=== PATIENT | male | born 1975 | race African-American/Black ===

== ENCOUNTER 2020-08-10 07:52 | Inpatient (IN) | payer OTHER ==
--- NOTE | 2020-08-10 08:13 | Emergency Department Report ---
ED General Adult HPI - General Chief complaint: Weakness Stated complaint: VOMITING/ABD PAIN PUI?: Yes Time Seen by Provider: 08/10/20 08:09 Source: patient, family, EMS ( EMS documentation not available at time of chart dictation ), RN notes reviewed Mode of arrival: Stretcher Limitations: Language Barrier, Physical Limitation - History of Present Illness Initial comments: The patient was evaluated in the emergency department for symptoms described in the history of present illness. He/she was evaluated in the context of the global COVID-19 pandemic, which necessitated consideration that the patient might be at risk for infection with the virus that causes COVID-19. Institutional protocols and algorithms that pertain to the evaluation of patients at risk for COVID-19 are in a state of rapid change based on informati on released by regulatory bodies including the CDC and federal and state organizations. These policies and algorithms were followed during the patient's care in the emergency department. Please note that these policies, procedures and recommendations changed on a rapid basis. The patient is a 45-year-old gentleman. He is not known to myself previously. He is accompanied by his niece. He indicates that he would like to have the niece translate for him, and this physician is conversant in British. As per his niece, the patient is a history of recreational drug use, with "ice", and a distant history of gallbladder stones. He may have had a cholecystectomy, they are not sure. He is brought to the hospital today with a complaint of weakness, nausea, vomiting, abdominal pain and distention. No fevers that they are aware of. Abdominal pain is all over. Reports having had received Covid vaccination. Denies urinary symptoms and testicular pain. Indicates pain is all over, increases with palpation and decreases with rest. Positive dry cough. Patient has apparently received his COVID-19 vaccination. -: Gradual, days(s) Location: abdomen Quality: aching Consistency: constant Improves with: rest Worsens with: movement - Related Data Allergies Allergy/AdvReac Type Severity Reaction Status Date / Time No Known Allergies Allergy Unverified 08/10/20 08:25 ED Review of Systems ROS: Stated complaint: VOMITING/ABD PAIN Other details as noted in HPI Constitutional: malaise, weakness Eyes: denies: vision change ENT: denies: epistaxis Respiratory: cough, shortness of breath Cardiovascular: denies: chest pain Gastrointestinal: abdominal pain, nausea, vomiting Musculoskeletal: arthralgia, myalgia Neurological: weakness Psychiatric: anxiety ED Physical Exam - General Limitations: Physical Limitation General appearance: anxious, in distress - Head Head exam: Present: atraumatic, normocephalic - Eye Eye exam: Present: normal appearance, EOMI - ENT ENT exam: Present: normal exam, normal orophraynx, mucous membranes moist, normal external ear exam - Neck Neck exam: Present: normal inspection, full ROM. Absent: tenderness, meningismus - Respiratory Respiratory exam: Present: other (Pulmonary auscultation not performed secondary to lack of disposable stethoscope). Absent: stridor - Cardiovascular Cardiovascular Exam: Present: tachycardia (Tachycardic rate noted on library monitor), other (Cardiac auscultation not performed secondary to lack of disposable stethoscope) - GI/Abdominal GI/Abdominal exam: Present: distended, tenderness, guarding (Voluntary guarding). Absent: pulsatile mass - Rectal Rectal exam: Present: deferred - Extremities Exam Extremities exam: Present: normal inspection, full ROM, other (2+ pulses noted in the bilateral upper and lower extremities. There is no palpable cord. negative Homans sign. Muscular compartments are soft. The pelvis is stable.). Absent: pedal edema, calf tenderness - Back Exam Back exam: Present: normal inspection. Absent: tenderness, CVA tenderness (R), CVA tenderness (L), paraspinal tenderness, vertebral tenderness - Neurological Exam Neurological exam: Present: alert, other (No facial droop. Tongue midline. Extraocular movements intact bilaterally. Facial sensation intact to light touch in V1, V2, V3 distribution bilaterally. 5 and a 5 strength in 4 extremities. Sensation intact to light touch in 4 extremities.) - Psychiatric Psychiatric exam: Present: anxious - Skin Skin exam: Present: warm, dry, intact, normal color. Absent: rash ED Course Vital Signs 08/10/20 08/10/20 08/10/20 07:53 08:21 10:37 Temperature 97.8 F Pulse Rate 107 H 135 H 103 H Respiratory 20 28 H 18 Rate Blood Pressure 90/57 Blood Pressure 110/63 98/64 [Left] O2 Sat by Pulse 96 94 96 Oximetry - Reevaluation(s) Reevaluation #1: 08/10/20 08:28 Differential diagnosis, including but not limited to: Obstruction, colitis, diverticulitis, GERD, gastritis, hiatal hernia, Sakshi-Davis tear, upper GI bleed, perforated viscus, pneumonia, pneumonitis, COVID-19 Assessment and plan: 45-year-old gentleman, with a primary complaint of abdomin al pain, nausea, vomiting, questionable coffee-ground emesis, who is hypotensive, tachycardic and hypoxic. 2 large-bore IVs established. Start IV fluids aggressively, code sepsis called overhead. Initiate isolation precautions, supplemental oxygen, pain medication, nausea medication, broad-spectrum antibiotic, empiric steroids, obtain x-ray the chest, CT angiogram chest, CT scan abdomen pelvis. Reassess after initial data points. Anticipate admission for supportive care and aggressive management once initial diagnostics have resulted. Nursing team informed me that patient filled up a bag with coffee-ground emesis. Suspect the coffee-ground emesis is secondary to intrinsic abdominal process. We will start him on Protonix, contact gastroenterology on-call to follow along with in consultation. 08/10/20 10:39 Laboratory studies reviewed and appreciated. Hemoconcentration, leukocytosis, bandemia, renal insufficiency, lactic acidosis and metabolic acidosis all present. Lipase within normal limits. There is no external physical exam evidence of blunt or penetrating trauma. Noncontrast CT scan of the abdomen pelvis demonstrates perforated viscus. Please note that I received a verbal report from the radiologist, because at this point in time, secondary to technical issues, written and typed radiology reports are not able to be shared or transmitted to myself. The radiologist informed me that he would follow-up with a chest interpretation, wet read, if any significant findings noted. GI recommendations reviewed and appreciated. 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 No further vomiting. Blood pressure 110 systolic. Contacted our general surgeon on-call, Dr. Reynolds, I discussed the patient's history, physical, pertinent laboratory studies and imaging studies, and have requested emergent general surgical consultation, for probable emergent operative intervention. Have also placed emergency consults and request for critical care consultation. Hospital physician, Dr. Hernandez, to admit patient to the medical service. D-dimer likely elevated secondary to the aforementioned. No further hypoxia at this time. Patient too unstable to go to nuclear medicine scan at this time, even if he did have a pulmonary embolism, given history of perforated viscus, and acute surgically emergent condition, systemic anticoagulation is contraindicated at this time. 08/10/20 11:02 - Consultations Consultation #1: 08/10/20 08:47 Discussed history, physical, pertinent vital signs and overall clinical impression with gastroenterology on-call, Dr. Hollingsworth. His group will follow in consultation, and he is in agreement with the plan of care. Consultation #2: 08/10/20 11:41 Discussed history, physical, pertinent laboratory studies and imaging studies and plan of care with critical care physician, Dr. Haro Agrees with plan of care, and he will evaluate the patient postoperatively. ED Medical Decision Making - Lab Data Result diagrams: 08/10/20 08:56 08/10/20 08:56 Vital Signs 08/10/20 08:21 Temperature 97.8 F Pulse Rate 135 H Respiratory 28 H Rate Blood Pressure 90/57 O2 Sat by Pulse 94 Oximetry - EKG Data -: EKG Interpreted by Me EKG shows normal: sinus rhythm Rate: tachycardia - EKG Data When compared to previous EKG there are: previous EKG unavailable 08/10/20 08:56 EKG interpreted at 08: 5 6 AM Sinus rhythm, tachycardia, normal P wave axis. Intervals within normal limits. This is an abnormal EKG secondary to tachycardia. The EKG is not a STEMI, there is no prior for comparison. - Radiology Data Radiology results: pending, report reviewed, image reviewed interpreted by me: 1 portable view x-ray the chest shows no pneumothorax, no infiltrate, no signifi cant abnormality. CHEST 1 VIEW INDICATION: Hypoxia, nausea and vomiting COMPARISON: None FINDINGS: Support devices: None Heart: Normal Lungs/Pleura: No acute pulmonary or pleural findings. IMPRESSION: 1. No acute disease. Signer Name: Atilio Leonardo MD Signed: 08/10/2020 7:59 AM Workstation Name: [id number] [facility] [address] [place] [address] Cat Scan Report Signed Patient: CHINTAN EVERETT MR#: [id number] : 1975 Acct:[id number] Age/Sex: 45 / M ADM Date: 08/10/20 Loc: CC1 A258-[address]: KENROY HERNANDEZ MD Ordering Physician: PENG PONCE MD Date of Service: 08/10/20 Procedure(s): CT chest wo con Accession Number(s): [id number] cc: PENG PONCE MD CT CHEST, ABDOMEN, AND PELVIS WITHOUT CONTRAST INDICATION: Chest and abdominal pain, nausea with vomiting. Onset of symptoms on Thursday. TECHNIQUE: Axial CT images were obtained through the chest, abdomen, and pelvis without contrast. All CT scans at this location are performed using CT dose reduction for ALARA by means of automated exposure control. COMPARISON: None available. FINDINGS: HEART: No significant abnormality. THORACIC AORTA AND ARTERIES: No significant abnormality. MEDIASTINUM and JANE: No mass or lymphadenopathy. The esophagus is fluid-filled and moderately distended. The trachea and main bronchi are patent and normal in caliber. LUNGS: There is mild dependent bilateral atelectasis without other significant abnormalities. PLEURA: No significant pleural effusion. No pneumothorax. LIVER: No significant abnormality. GALLBLADDER: Prior cholecystectomy. BILE DUCTS: No significant abnormality. PANCREAS: No significant abnormality. SPLEEN: No significant abnormality. ADRENALS: No significant abnormality. RIGHT KIDNEY and URETER: No significant abnormality. LEFT KIDNEY and URETER: No significant abnormality. STOMACH and SMALL BOWEL: The stomach is fluid-filled and markedly distended. There is moderate generalized small bowel dilatation with mild thickening of multiple small bowel loops as well as mild to moderate surrounding inflammation. There is a questionable abscess versus conglomerate loops of small bowel seen along the pelvis posterior to the bladder on image 263 of series 2 measuring approximately 6.4 x 5.0 cm. No other significant abnormality. COLON: No significant abnormality. APPENDIX: No significant abnormality. PERITONEUM: Trace free fluid is seen along the liver and spleen. A moderate amount of free air is present, mainly along the upper abdomen. Questional abscess in the pelvis as described above. No other organized fluid collection is seen. LYMPH NODES: No significant adenopathy. ABDOMINAL AORTA and ARTERIES: No significant abnormality. IVC and VEINS: No significant abnormality. URINARY BLADDER: No significant abnormality. REPRODUCTIVE ORGANS: No significant abnormality. ADDITIONAL FINDINGS: None. BONES: No significant abnormality. IMPRESSION: 1. CT evidence of gastroenteritis complicated by bowel perforation with a pelvic abscess versus conglomerate loops of small bowel as described above. 2. Additional findings as above. CRITICAL RESULT: Time of Discovery (LIEUTENANT FIREFIGHTER/CDT): 9:25 Time of Communication (LIEUTENANT FIREFIGHTER/CDT): 9:30 Licensed Practitioner Receiving Report: Dr. Ponce Read-Back Performed: Yes. Signer Name: Jero Story MD Signed: 08/10/2020 2:23 PM Workstation Name: [id number] Transcribed By: ROSANNA Dictated By: Jero Story MD Electronically Authenticated By: Jero Story MD Signed Date/Time: 08/10/20 7450 Critical Care Time: Yes Critical care time in (mins) excluding proc time.: 65 Critical care attestation.: If time is entered above; I have spent that time in minutes in the direct care of this critically ill patient, excluding procedure time. Critical Care Time: Critical care time includes multiple bedside reevaluations, interpretation of laboratory studies, radiology studies, multiple bedside reevaluations, time spent obtaining history and physical, and discussion with multiple consulting services, including hospital medicine, gastroenterology, general surgery, and critical care. This does not include procedure time. This patient has evidence of multiorgan dysfunction, manifest by sepsis, bandemia, renal insufficiency, metabolic acidosis, and lactic acidosis. ED Disposition Clinical Impression: Coffee ground emesis, Sepsis, Acute abdominal pain, Hypoxia, Suspected 2019 novel coronavirus infection, Renal insufficiency, Lactic acidosis, Metabolic acidosis, Perforated viscus Disposition: OP ADMIT IP TO THIS HOSP Is pt being admited?: Yes Does the pt Need Aspirin: No Condition: Critical
[2020-08-10] MEDS ORDERED: LACTATED RINGERS 1000 ML IV SOLN IV ONE (08:21)
[2020-08-10] MEDS ORDERED: dexAMETHasone 4 MG/ML VIAL IV NR (08:30)
[2020-08-10] MEDS ORDERED: ONDANSETRON 4 MG/2 ML INJ IV NR (08:30)
[2020-08-10] MEDS ORDERED: MORPHINE 4 MG/1 ML INJ IV NR (08:30)
[2020-08-10] MEDS ORDERED: PIPERACIL/TAZOBACTA 4.5/NS 100 4.5 GM/100 ML VIAL IV ONE (08:30)
[2020-08-10] MEDS: PANTOPRAZOLE 80 MG in SODIUM CHLORIDE 0.9% 100 ML IV SCH ×2 (09:02→20:05)
--- NOTE | 2020-08-10 09:03 | XRay Report ---
CHEST 1 VIEW INDICATION: Hypoxia, nausea and vomiting COMPARISON: None FINDINGS: Support devices: None Heart: Normal Lungs/Pleura: No acute pulmonary or pleural findings. IMPRESSION: 1. No acute disease. Signer Name: Atilio Leonardo MD Signed: 08/10/2020 8:59 AM Workstation Name: [id number]
[2020-08-10 09:30] LABS: Hematocrit 47.5 % (35.5-45.6); Mean Corpuscular HGB Conc 34 % (32-34); Mean Corpuscular Volume 89 fl (84-94); Platelet Count 209 K/mm3 (140-440); Red Blood Count 5.31 M/mm3 (3.65-5.03)
[2020-08-10 09:44] LABS: Alanine Aminotransferase 11 units/L (7-56); Albumin 3.3 g/dL (3.9-5); BUN/Creatinine Ratio 18; Blood Urea Nitrogen 56 mg/dL (9-20); Calcium 8.6 mg/dL (8.4-10.2); Hemolysis Index 4
--- NOTE | 2020-08-10 09:48 | Gastroenterology Consultation ---
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 He reports since then having upper abdominal pain that has been getting more severe sharp cramping intermittent He reports that he just threw up moderate amount of dark red blood and that since throwing up his stomach is started feel little bit better though at times he is wincing throughout her interview and stopping to talk from abdominal pain Patient reports never having had abdominal pain like this before Patient reports that he did have ulcers many years ago though when I asked further about it he said he had surgery for gallstones He reports he does not smoke and just drinks a couple beers a week he used to drink about 10 beers a week in the past Niece reported that he uses drugs Reports no bowel movements no melena Denies fevers, reports nausea is improved currently since his recent vomiting Denies using [id number] pain medications Denies home medications Obtained/updated/reviewed patient's current medications Past History Past Medical History: No medical history Past Surgical History: Other (Patient reports gallbladder surgery for gallstones) Social history: other (Denies tobacco reports occasional alcohol use) Medications and Allergies Allergies Allergy/AdvReac Type Severity Reaction Status Date / Time No Known Allergies Allergy Unverified 08/10/20 08:25 Active Meds: Active Medications Pantoprazole Sodium 80 mg/ (Sodium Chloride) 100 mls @ 10 mls/hr IV DIRECT DARYA Last Admin: 08/10/20 09:02 Dose: 8 mg/hr, 10 mls/hr Documented by: Review of Systems - Review of Systems All systems: negative (10 Systems reviewed and negative except as mentioned above in the history of present illness) Exam - Constitutional Vital Signs: Temp Pulse Resp BP Pulse Ox 97.8 F 135 H 28 H 90/57 94 08/10/20 08:21 08/10/20 08:21 08/10/20 08:21 08/10/20 08:21 08/10/20 08:21 General appearance: other (Dried dark vomitus over his left chest and arm no acute distress) - EENT Eyes: EOM intact - Neck Neck: supple - Respiratory Respiratory effort: normal - Cardiovascular Rhythm: other (Mildly tachycardic) - Gastrointestinal General gastrointestinal: Present: tender, other - Integumentary Integumentary: Present: dry (Bowel sounds present but decreased frequency) - Neurologic Neurological: alert and oriented x3 - Psychiatric Psychiatric: other (Lethargic, but patient just got morphine) - Labs CBC & Chem 7: 08/10/20 08:56 Lab Results: Laboratory Results - last 24 hr 08/10/20 08/10/20 08/10/20 08:56 08:56 08:56 WBC 17.8 H RBC 5.31 H Hgb 16.0 H Hct 47.5 H MCV 89 MCH 30 MCHC 34 RDW 15.0 Plt Count 209 Lactic Acid 4.20 H* Plasma/Serum Alcohol < 0.01 Assessment and Plan Recommend n.p.o. status follow-up imaging and PPI Check lipase rule out traumatic pancreatitis Discussion: CT scan pending Patient hemoconcentrated Differential diagnosis includes traumatic pancreatitis, gastritis, peptic ulcer disease, bowel obstruction, etc. Work-up still in process of being performed follow-up imaging results and remainder of labs trend hemoglobin trend clinically given patient without melena and only had one episode of coffee- ground emesis will require further imaging information before can determine if patient requires endoscopy or not, though as of right now he does not appear to be having active upper GI bleed which requires endoscopic intervention therefore we will continue to monitor and will not scope at this juncture - Patient Problems (1) Acute abdominal pain Status: Acute (2) Coffee ground emesis Status: Acute
[2020-08-10 10:05] LABS: Total Cells Counted 100
[2020-08-10 10:06] LABS: Band Neutrophils # (Manual) 2.5 K/mm3; Platelet Estimate Consistent w Auto; RBC Morphology Normal
--- NOTE | 2020-08-10 10:55 | History and Physical Report ---
History of Present Illness Chief complaint: My stomach hurts History of present illness: 45 YO Male with no PMH presents to ED for evaluation. Pt reports" my stomach hurts". Patient reports that he has experienced abdominal pain over the past 2 days with persistent symptoms over the same timeframe. Patient knowledges nausea, multiple episodes of vomiting, as well as abdominal distention. Patient reports pain is 6/10, constant, aching in nature, worsened with movement, relieved with rest, diffuse in location. EMS was notified and upon arrival the patient was found to be in distress and subsequently transported to [facility] for further care and evaluation of the aforementioned symptoms. The patient was seen and evaluated in the emergency department. All lab and imaging studies reviewed. Patient underwent CT scan of the abdomen and pelvis and was found to have perforated viscus, complicated by sepsis, acidosis, as well as peritonitis. Patient admitted to ICU and initiated on sepsis protocol and treated with IV antibiotic therapy, bowel rest and supportive care. Surgical team consulted in ED. Patient is being taken urgently to the operating room for surgical intervention. Patient has fever, chills, chest pain, palpitation, skin rash, recent ill contact, ingestion of food/water from new or different sources, or known exposure to COVID-19. No prior admission for review. No medication listed at time of admission reconciliation. Past History Past Medical History: No medical history Past Surgical History: Other (Patient reports gallbladder surgery for gallstones) Social history: single, other (Denies tobacco reports occasional alcohol use). denies: smoking, alcohol abuse, prescription drug abuse Family history: no significant family history, other (Reviewed) Medications and Allergies Allergies Allergy/AdvReac Type Severity Reaction Status Date / Time No Known Allergies Allergy Unverified 08/10/20 08:25 Active Meds: Active Medications Pantoprazole Sodium 80 mg/ (Sodium Chloride) 100 mls @ 10 mls/hr IV DIRECT DARYA Last Admin: 08/10/20 09:02 Dose: 8 mg/hr, 10 mls/hr Documented by: Review of Systems Constitutional: no weight loss, no weight gain, no fever, no chills Ears, nose, mouth and throat: no ear pain, no ear discharge, no decreased hearing, no nose pain, no nasal discharge Cardiovascular: no chest pain, no orthopnea, no palpitations, no rapid/irregular heart beat, no edema, no syncope Respiratory: no cough, no cough with sputum Gastrointestinal: abdominal pain, nausea, vomiting, no constipation, no hematemesis, no coffee ground emesis, no melena, no hematochezia Exam - Constitutional Vitals: Temp Pulse Resp BP Pulse Ox 97.8 F 103 H 18 98/64 96 08/10/20 08:21 08/10/20 10:37 08/10/20 10:37 08/10/20 10:37 08/10/20 10:37 HEART Score - HEART Score Troponin: Troponin T < 0.010 ng/mL (0.00-0.029) 08/10/20 08:56 Results - Labs CBC & Chem 7: 08/10/20 08:56 08/10/20 08:56 Labs: Abnormal lab results 08/10/20 08/10/20 08/10/20 Range/Units 08:56 08:56 08:56 WBC 17.8 H (4.5-11.0) K/mm3 RBC 5.31 H (3.65-5.03) M/mm3 Hgb 16.0 H (11.8-15.2) gm/dl Hct 47.5 H (35.5-45.6) % Seg Neuts % (Manual) 73.0 H (40.0-70.0) % Lymphocytes % (Manual) 4.0 L (13.4-35.0) % Monocytes % (Manual) 8.0 H (0.0-7.3) % Seg Neutrophils # Man 13.0 H (1.8-7.7) K/mm3 Lymphocytes # (Manual) 0.7 L (1.2-5.4) K/mm3 Monocytes # (Manual) 1.4 H (0.0-0.8) K/mm3 D-Dimer 4279.32 H (0-234) ng/mlDDU Sodium 135 L (137-145) mmol/L Chloride 94.4 L (98-107) mmol/L BUN 56 H (9-20) mg/dL Creatinine 3.2 H (0.8-1.3) mg/dL Glucose 153 H (75-100) mg/dL Lactic Acid (0.7-2.0) mmol/L Ferritin (30.0-300.0) ng/mL C-Reactive Protein 33.80 H (0.00-1.30) mg/dL Total Protein 5.9 L (6.3-8.2) g/dL Albumin 3.3 L (3.9-5) g/dL Lipase (13-60) units/L Salicylates (2.8-20.0) mg/dL Acetaminophen (10.0-30.0) ug/mL 08/10/20 08/10/20 08/10/20 Range/Units 08:56 08:56 08:56 WBC (4.5-11.0) K/mm3 RBC (3.65-5.03) M/mm3 Hgb (11.8-15.2) gm/dl Hct (35.5-45.6) % Seg Neuts % (Manual) (40.0-70.0) % Lymphocytes % (Manual) (13.4-35.0) % Monocytes % (Manual) (0.0-7.3) % Seg Neutrophils # Man (1.8-7.7) K/mm3 Lymphocytes # (Manual) (1.2-5.4) K/mm3 Monocytes # (Manual) (0.0-0.8) K/mm3 D-Dimer (0-234) ng/mlDDU Sodium (137-145) mmol/L Chloride (98-107) mmol/L BUN (9-20) mg/dL Creatinine (0.8-1.3) mg/dL Glucose (75-100) mg/dL Lactic Acid 4.20 H* (0.7-2.0) mmol/L Ferritin 429.8 H (30.0-300.0) ng/mL C-Reactive Protein (0.00-1.30) mg/dL Total Protein (6.3-8.2) g/dL Albumin (3.9-5) g/dL Lipase (13-60) units/L Salicylates < 0.3 L (2.8-20.0) mg/dL Acetaminophen (10.0-30.0) ug/mL 08/10/20 08/10/20 Range/Units 08:56 08:56 WBC (4.5-11.0) K/mm3 RBC (3.65-5.03) M/mm3 Hgb (11.8-15.2) gm/dl Hct (35.5-45.6) % Seg Neuts % (Manual) (40.0-70.0) % Lymphocytes % (Manual) (13.4-35.0) % Monocytes % (Manual) (0.0-7.3) % Seg Neutrophils # Man (1.8-7.7) K/mm3 Lymphocytes # (Manual) (1.2-5.4) K/mm3 Monocytes # (Manual) (0.0-0.8) K/mm3 D-Dimer (0-234) ng/mlDDU Sodium (137-145) mmol/L Chloride (98-107) mmol/L BUN (9-20) mg/dL Creatinine (0.8-1.3) mg/dL Glucose (75-100) mg/dL Lactic Acid (0.7-2.0) mmol/L Ferritin (30.0-300.0) ng/mL C-Reactive Protein (0.00-1.30) mg/dL Total Protein (6.3-8.2) g/dL Albumin (3.9-5) g/dL Lipase 9 L (13-60) units/L Salicylates (2.8-20.0) mg/dL Acetaminophen 5.0 L (10.0-30.0) ug/mL Assessment and Plan - Patient Problems (1) Sepsis Current Visit: No Status: Acute Plan to address problem: Sepsis protocol: CBC, CMP, chest x-ray, urinalysis, blood culture, IV antibiotic therapy, IV fluid resuscitation therapy, serial lactic acid level, maintain mean arterial pressure greater than or equal to 65. The high probability of a clinically significant, sudden or life threatening deterioration of the [GI, renal,] system(s) required my full and direct attention, intervention and personal management. The aggregate critical care time was [65] minutes. This time is in addition to time spent performing reported procedures but includes the following: [x] Data Review and interpretation [x] Patient assessment and monitoring of vital signs [x] Documentation [x] Medication orders and management (2) Acute kidney injury (BONY) with acute tubular necrosis (ATN) Current Visit: Yes Status: Acute Plan to address problem: BMP, IV fluid resuscitation therapy, monitor urine output every shift, repeat BMP in a.m. to monitor serum creatinine as well as GFR. (3) Metabolic acidosis Current Visit: No Status: Acute Plan to address problem: IV fluid resuscitation therapy, serial lactic acid level, supportive care. (4) Perforated viscus Current Visit: No Status: Acute Plan to address problem: Surgical team consulted in ED, serial abdominal exam, pain control, bowel rest, surgical intervention as per surgical team. (5) DVT prophylaxis Current Visit: Yes Status: Acute Plan to address problem: SCD to bilateral lower extremities while in bed,
[2020-08-10] MEDS ORDERED: ALBUTEROL 2.5 MG/3 ML NEBU IH PRN (11:01)
[2020-08-10] MEDS ORDERED: MORPHINE 2 MG/1 ML INJ IV PRN (11:01)
[2020-08-10] MEDS ORDERED: ACETAMINOPHEN 325 MG TAB PO PRN (11:07)
[2020-08-10] MEDS ORDERED: HYDROmorphone 1 MG/1 ML INJ IV PRN ×2 (11:07→12:30)
[2020-08-10] MEDS ORDERED: ROCURONIUM 50 MG/5 ML INJ IV ONE ×2 (11:09→12:13)
[2020-08-10] MEDS ORDERED: ONDANSETRON 4 MG/2 ML INJ ONE (11:09)
[2020-08-10] MEDS ORDERED: LIDOCAINE MPF (2%) 20 MG/1 ML VIAL 5 ML ONE (11:09)
[2020-08-10] MEDS ORDERED: propofoL 200 MG/20 ML VIAL IV ONE (11:10)
[2020-08-10] MEDS ORDERED: SUCCINYLCHOLINE CHLORIDE 200 MG/10 ML INJ MDV ONE (11:14)
[2020-08-10] MEDS ORDERED: SODIUM CHLORIDE 0.9% 1000 ML 1,000 ML IV SCH (11:15)
[2020-08-10] MEDS ORDERED: LIDOCAINE (1%) 10 MG/1 ML VIAL 20 ML MDV ONE (11:18)
[2020-08-10] MEDS ORDERED: BUPIVACAINE/PF (0.5%) 5 MG/1 ML 30 ML VIAL INFILTRATI ONE ×2 (11:18→11:58)
--- NOTE | 2020-08-10 11:22 | Consultation ---
History of Present Illness Consult date: 08/10/20 Reason for consult: abdominal pain - History of present illness History of present illness: 45 year old male presented to ED with a two day history of worsening abdominal pain, and coffee ground emesis. Pt has a history of gastric ulcer disease. CT scan shows free air in the upper part of the abdomen. Pt presented tachycardic and hypotensive. Hx obtained with the help of niece who speaks fluid Setswana and Albanian. 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) Past History Past Medical History: No medical history Past Surgical History: cholecystectomy, Other (Patient reports gallbladder surgery for gallstones) Social history: other (Denies tobacco reports occasional alcohol use) Medications and Allergies Allergies Allergy/AdvReac Type Severity Reaction Status Date / Time No Known Allergies Allergy Unverified 08/10/20 08:25 Active Meds: Active Medications Acetaminophen (Acetaminophen 325 Mg Tab) 650 mg PO Q6H PRN PRN Reason: Pain, Mild (1-3) Albuterol (Albuterol 2.5 Mg/3 Ml Nebu) 2.5 mg IH Q3HRT PRN PRN Reason: Shortness Of Breath Famotidine (Famotidine 20 Mg/2 Ml Inj) 20 mg IV BID DARYA Hydromorphone HCl (Hydromorphone 1 Mg/1 Ml Inj) 0.25 mg IV Q4H PRN PRN Reason: Pain, Moderate (4-6) Pantoprazole Sodium 80 mg/ (Sodium Chloride) 100 mls @ 10 mls/hr IV DIRECT DARYA Last Admin: 08/10/20 09:02 Dose: 8 mg/hr, 10 mls/hr Documented by: Sodium Chloride (Nacl 0.9% 1000 Ml) 1,000 mls @ 125 mls/hr IV DIRECT DARYA Cefepime HCl (Cefepime/Ns 2 Gm/100 Ml) 2 gm in 100 mls @ 200 mls/hr IV Q8H DARYA; Protocol Metronidazole (Flagyl 500 Mg/100 Ml) 500 mg in 100 mls @ 100 mls/hr IV Q8H DARYA; Protocol Morphine Sulfate (Morphine 2 Mg/1 Ml Inj) 2 mg IV Q4H PRN PRN Reason: Pain, Moderate (4-6) Sodium Chloride (Sodium Chloride 0.9% 10 Ml Flush Syringe) 10 ml IV BID DARYA Sodium Chloride (Sodium Chloride 0.9% 10 Ml Flush Syringe) 10 ml IV PRN PRN PRN Reason: LINE FLUSH Review of Systems All systems: negative (abdominal pain, nausea, vomiting) Exam Vital Signs Pulse Resp BP Pulse Ox 107 H 20 110/63 96 08/10/20 07:53 08/10/20 07:53 08/10/20 07:53 08/10/20 07:53 - General physical appearance Positive: well developed, moderate distress, severe pain - Respiratory Positive: normal expansion, normal respiratory effort - Cardiovascular Heart Sounds: Present: S1 & S2 - Extremities Extremities: no ischemia - Abdomen Abdomen: Present: soft, tender (well healed laparoscopic incisions), guarding, other - Neurologic Neurologic: CN II-XII intact Results - Labs 08/10/20 08:56 08/10/20 08:56 Abnormal lab results 08/10/20 08/10/20 08/10/20 Range/Units 08:56 08:56 08:56 WBC 17.8 H (4.5-11.0) K/mm3 RBC 5.31 H (3.65-5.03) M/mm3 Hgb 16.0 H (11.8-15.2) gm/dl Hct 47.5 H (35.5-45.6) % Seg Neuts % (Manual) 73.0 H (40.0-70.0) % Lymphocytes % (Manual) 4.0 L (13.4-35.0) % Monocytes % (Manual) 8.0 H (0.0-7.3) % Seg Neutrophils # Man 13.0 H (1.8-7.7) K/mm3 Lymphocytes # (Manual) 0.7 L (1.2-5.4) K/mm3 Monocytes # (Manual) 1.4 H (0.0-0.8) K/mm3 D-Dimer 4279.32 H (0-234) ng/mlDDU Sodium 135 L (137-145) mmol/L Chloride 94.4 L (98-107) mmol/L BUN 56 H (9-20) mg/dL Creatinine 3.2 H (0.8-1.3) mg/dL Glucose 153 H (75-100) mg/dL Lactic Acid (0.7-2.0) mmol/L Ferritin (30.0-300.0) ng/mL C-Reactive Protein 33.80 H (0.00-1.30) mg/dL Total Protein 5.9 L (6.3-8.2) g/dL Albumin 3.3 L (3.9-5) g/dL Lipase (13-60) units/L Salicylates (2.8-20.0) mg/dL Acetaminophen (10.0-30.0) ug/mL 08/10/20 08/10/20 08/10/20 Range/Units 08:56 08:56 08:56 WBC (4.5-11.0) K/mm3 RBC (3.65-5.03) M/mm3 Hgb (11.8-15.2) gm/dl Hct (35.5-45.6) % Seg Neuts % (Manual) (40.0-70.0) % Lymphocytes % (Manual) (13.4-35.0) % Monocytes % (Manual) (0.0-7.3) % Seg Neutrophils # Man (1.8-7.7) K/mm3 Lymphocytes # (Manual) (1.2-5.4) K/mm3 Monocytes # (Manual) (0.0-0.8) K/mm3 D-Dimer (0-234) ng/mlDDU Sodium (137-145) mmol/L Chloride (98-107) mmol/L BUN (9-20) mg/dL Creatinine (0.8-1.3) mg/dL Glucose (75-100) mg/dL Lactic Acid 4.20 H* (0.7-2.0) mmol/L Ferritin 429.8 H (30.0-300.0) ng/mL C-Reactive Protein (0.00-1.30) mg/dL Total Protein (6.3-8.2) g/dL Albumin (3.9-5) g/dL Lipase (13-60) units/L Salicylates < 0.3 L (2.8-20.0) mg/dL Acetaminophen (10.0-30.0) ug/mL 08/10/20 08/10/20 Range/Units 08:56 08:56 WBC (4.5-11.0) K/mm3 RBC (3.65-5.03) M/mm3 Hgb (11.8-15.2) gm/dl Hct (35.5-45.6) % Seg Neuts % (Manual) (40.0-70.0) % Lymphocytes % (Manual) (13.4-35.0) % Monocytes % (Manual) (0.0-7.3) % Seg Neutrophils # Man (1.8-7.7) K/mm3 Lymphocytes # (Manual) (1.2-5.4) K/mm3 Monocytes # (Manual) (0.0-0.8) K/mm3 D-Dimer (0-234) ng/mlDDU Sodium (137-145) mmol/L Chloride (98-107) mmol/L BUN (9-20) mg/dL Creatinine (0.8-1.3) mg/dL Glucose (75-100) mg/dL Lactic Acid (0.7-2.0) mmol/L Ferritin (30.0-300.0) ng/mL C-Reactive Protein (0.00-1.30) mg/dL Total Protein (6.3-8.2) g/dL Albumin (3.9-5) g/dL Lipase 9 L (13-60) units/L Salicylates (2.8-20.0) mg/dL Acetaminophen 5.0 L (10.0-30.0) ug/mL Diabetes panel 08/10/20 Range/Units 08:56 Sodium 135 L (137-145) mmol/L Potassium 4.7 (3.6-5.0) mmol/L Chloride 94.4 L (98-107) mmol/L Carbon Dioxide 22 (22-30) mmol/L BUN 56 H (9-20) mg/dL Creatinine 3.2 H (0.8-1.3) mg/dL Glucose 153 H (75-100) mg/dL Calcium 8.6 (8.4-10.2) mg/dL AST 13 (5-40) units/L ALT 11 (7-56) units/L Alkaline Phosphatase 39 (35-129) units/L Total Protein 5.9 L (6.3-8.2) g/dL Albumin 3.3 L (3.9-5) g/dL Thyroid panel 08/10/20 Range/Units 08:56 TSH 3.870 (0.270-4.200) mlU/mL Calcium panel 08/10/20 Range/Units 08:56 Calcium 8.6 (8.4-10.2) mg/dL Albumin 3.3 L (3.9-5) g/dL Pituitary panel 08/10/20 08/10/20 Range/Units 08:56 08:56 Sodium 135 L (137-145) mmol/L Potassium 4.7 (3.6-5.0) mmol/L Chloride 94.4 L (98-107) mmol/L Carbon Dioxide 22 (22-30) mmol/L BUN 56 H (9-20) mg/dL Creatinine 3.2 H (0.8-1.3) mg/dL Glucose 153 H (75-100) mg/dL Calcium 8.6 (8.4-10.2) mg/dL TSH 3.870 (0.270-4.200) mlU/mL Adrenal panel 08/10/20 Range/Units 08:56 Sodium 135 L (137-145) mmol/L Potassium 4.7 (3.6-5.0) mmol/L Chloride 94.4 L (98-107) mmol/L Carbon Dioxide 22 (22-30) mmol/L BUN 56 H (9-20) mg/dL Creatinine 3.2 H (0.8-1.3) mg/dL Glucose 153 H (75-100) mg/dL Calcium 8.6 (8.4-10.2) mg/dL Total Bilirubin 0.70 (0.1-1.2) mg/dL AST 13 (5-40) units/L ALT 11 (7-56) units/L Alkaline Phosphatase 39 (35-129) units/L Total Protein 5.9 L (6.3-8.2) g/dL Albumin 3.3 L (3.9-5) g/dL - Imaging CT scan - abdomen: image reviewed CT scan - pelvis: image reviewed Assessment and Plan 45 year old male with perforated viscous on CT scan with abdominal pain. Presented with sepsis. vitals improving with resuscitation. Pt signed informed consent for emergent diagnostic laparoscopy possible open.
[2020-08-10 11:37] LABS: INR 1.38 (0.87-1.13)
--- NOTE | 2020-08-10 11:45 | Anesthesia Consultation ---
Anesthesia Consult and Med Hx Date of service: 08/10/20 - Airway Anesthetic Teeth Evaluation: Poor (multiple broken, missing teeth) ROM Head & Neck: Adequate Mental/Hyoid Distance: Adequate Mallampati Class: Class II Intubation Access Assessment: Probably Good - Pre-Operative Health Status ASA Pre-Surgery Classification: ASA2, Emergency Proposed Anesthetic Plan: General - Gastrointestinal Hx Ulcer: Yes Hx Gastroesophageal Reflux Disease: Yes - Other Systems Hx Substance Use: Yes (h/o "ice" use per niece)
--- NOTE | 2020-08-10 11:46 | Anesthesia Day of Surgery ---
Anesthesia Day of Surgery - Day of Surgery Patient Examined: Yes Patient H&P Reviewed: Yes Patient is NPO: Yes (for 2 days, active N/V)
[2020-08-10] MEDS ORDERED: SODIUM CHLORIDE 0.9% IRR 1,500 ML BOTTLE IR ONE (11:58)
[2020-08-10] MEDS ORDERED: LIDOCAINE (1%) 10 MG/1 ML VIAL 20 ML MDV INFILTRATI ONE (11:58)
[2020-08-10] MEDS ORDERED: PHENYLEPHRINE/NS 1,000 MCG/10 ML SYRINGE (OR USE) IV ONE (12:38)
[2020-08-10] MEDS ORDERED: LACTATED RINGERS 2,000 ML ONE (12:39)
--- NOTE | 2020-08-10 13:06 | Consultation ---
History of Present Illness Consult date: 08/10/20 Requesting physician: PENG EPSTEIN Reason for consult: other (Acute Hypoxemic Respiratoiry Failure; Perforated Viscus) History of present illness: PULMONARY/CCM CONSULT NOTE (Full dictation # [id number]) Please see dictated notes for full details Past History Past Medical History: No medical history Past Surgical History: Other (Patient reports gallbladder surgery for gallstones) Social history: single, other (Denies tobacco reports occasional alcohol use). denies: smoking, alcohol abuse, prescription drug abuse Family history: no significant family history, other (Reviewed) Medications and Allergies Allergies Allergy/AdvReac Type Severity Reaction Status Date / Time No Known Allergies Allergy Unverified 08/10/20 08:25 Active Meds: Active Medications Acetaminophen (Acetaminophen 325 Mg Tab) 650 mg PO Q6H PRN PRN Reason: Pain, Mild (1-3) Albuterol (Albuterol 2.5 Mg/3 Ml Nebu) 2.5 mg IH Q3HRT PRN PRN Reason: Shortness Of Breath Famotidine (Famotidine 20 Mg/2 Ml Inj) 10 mg IV BID DARYA Hydromorphone HCl (Hydromorphone 1 Mg/1 Ml Inj) 0.25 mg IV Q4H PRN PRN Reason: Pain, Moderate (4-6) Hydromorphone HCl (Hydromorphone 1 Mg/1 Ml Inj) 0.5 mg IV Q10MIN PRN PRN Reason: Pain , Severe (7-10) Stop: 08/10/20 17:00 Pantoprazole Sodium 80 mg/ (Sodium Chloride) 100 mls @ 10 mls/hr IV DIRECT DARYA Last Admin: 08/10/20 09:02 Dose: 8 mg/hr, 10 mls/hr Documented by: Sodium Chloride (Nacl 0.9% 1000 Ml) 1,000 mls @ 125 mls/hr IV DIRECT DARYA Cefepime HCl (Cefepime/Ns 2 Gm/100 Ml) 2 gm in 100 mls @ 200 mls/hr IV Q24H DARYA; Protocol Metronidazole (Flagyl 500 Mg/100 Ml) 500 mg in 100 mls @ 100 mls/hr IV Q8HR DARYA; Protocol Morphine Sulfate (Morphine 2 Mg/1 Ml Inj) 2 mg IV Q4H PRN PRN Reason: Pain, Moderate (4-6) Sodium Chloride (Sodium Chloride 0.9% 10 Ml Flush Syringe) 10 ml IV BID DARYA Sodium Chloride (Sodium Chloride 0.9% 10 Ml Flush Syringe) 10 ml IV PRN PRN PRN Reason: LINE FLUSH Physical Examination Vital signs: Vital Signs Pulse Resp BP Pulse Ox 107 H 20 110/63 96 08/10/20 07:53 08/10/20 07:53 08/10/20 07:53 08/10/20 07:53 Results - Laboratory Findings CBC and BMP: 08/10/20 08:56 08/10/20 08:56 PT/INR, D-dimer PT 17.6 Sec. (12.2-14.9) H 08/10/20 Unknown INR 1.38 (0.87-1.13) H 08/10/20 Unknown D-Dimer 4279.32 ng/mlDDU (0-234) H 08/10/20 08:56 Abnormal lab findings: Abnormal Labs 08/10/20 08/10/20 08/10/20 08:56 08:56 08:56 WBC 17.8 H RBC 5.31 H Hgb 16.0 H Hct 47.5 H Seg Neuts % (Manual) 73.0 H Lymphocytes % (Manual) 4.0 L Monocytes % (Manual) 8.0 H Seg Neutrophils # Man 13.0 H Lymphocytes # (Manual) 0.7 L Monocytes # (Manual) 1.4 H PT INR D-Dimer 4279.32 H Sodium 135 L Chloride 94.4 L BUN 56 H Creatinine 3.2 H Glucose 153 H Lactic Acid Ferritin C-Reactive Protein 33.80 H Total Protein 5.9 L Albumin 3.3 L Lipase Salicylates Acetaminophen 08/10/20 08/10/20 08/10/20 08:56 08:56 08:56 WBC RBC Hgb Hct Seg Neuts % (Manual) Lymphocytes % (Manual) Monocytes % (Manual) Seg Neutrophils # Man Lymphocytes # (Manual) Monocytes # (Manual) PT INR D-Dimer Sodium Chloride BUN Creatinine Glucose Lactic Acid 4.20 H* Ferritin 429.8 H C-Reactive Protein Total Protein Albumin Lipase Salicylates < 0.3 L Acetaminophen 08/10/20 08/10/20 08/10/20 08:56 08:56 Unknown WBC RBC Hgb Hct Seg Neuts % (Manual) Lymphocytes % (Manual) Monocytes % (Manual) Seg Neutrophils # Man Lymphocytes # (Manual) Monocytes # (Manual) PT INR D-Dimer Sodium Chloride BUN Creatinine Glucose Lactic Acid 4.30 H* Ferritin C-Reactive Protein Total Protein Albumin Lipase 9 L Salicylates Acetaminophen 5.0 L 08/10/20 Unknown WBC RBC Hgb Hct Seg Neuts % (Manual) Lymphocytes % (Manual) Monocytes % (Manual) Seg Neutrophils # Man Lymphocytes # (Manual) Monocytes # (Manual) PT 17.6 H INR 1.38 H D-Dimer Sodium Chloride BUN Creatinine Glucose Lactic Acid Ferritin C-Reactive Protein Total Protein Albumin Lipase Salicylates Acetaminophen
[2020-08-10] MEDS ORDERED: LACTATED RINGERS 1,000 ML ONE ×2 (13:18→14:57)
[2020-08-10] MEDS ORDERED: GLYCOPYRROLATE 0.4 MG/2 ML INJ ONE (14:15)
[2020-08-10] MEDS ORDERED: NEOSTIGMINE 10MG/10 ML INJ MDV ONE (14:15)
[2020-08-10] MEDS ORDERED: dexAMETHasone 20 MG/5 ML VIAL ONE (14:30)
--- NOTE | 2020-08-10 14:39 | Cat Scan Report ---
CT CHEST, ABDOMEN, AND PELVIS WITHOUT CONTRAST INDICATION: Chest and abdominal pain, nausea with vomiting. Onset of symptoms on Thursday. TECHNIQUE: Axial CT images were obtained through the chest, abdomen, and pelvis without contrast. All CT scans a t this location are performed using CT dose reduction for ALARA by means of automated exposure contro l. COMPARISON: None available. FINDINGS: HEART: No significant abnormality. THORACIC AORTA AND ARTERIES: No significant abnormality. MEDIASTINUM and JANE: No mass or lymphadenopathy. The esophagus is fluid-filled and moderately disten ded. The trachea and main bronchi are patent and normal in caliber. LUNGS: There is mild dependent bilateral atelectasis without other significant abnormalities. PLEURA: No significant pleural effusion. No pneumothorax. LIVER: No significant abnormality. GALLBLADDER: Prior cholecystectomy. BILE DUCTS: No significant abnormality. PANCREAS: No significant abnormality. SPLEEN: No significant abnormality. ADRENALS: No significant abnormality. RIGHT KIDNEY and URETER: No significant abnormality. LEFT KIDNEY and URETER: No significant abnormality. STOMACH and SMALL BOWEL: The stomach is fluid-filled and markedly distended. There is moderate genera lized small bowel dilatation with mild thickening of multiple small bowel loops as well as mild to mo derate surrounding inflammation. There is a questionable abscess versus conglomerate loops of small b owel seen along the pelvis posterior to the bladder on image 263 of series 2 measuring approximately 6.4 x 5.0 cm. No other significant abnormality. COLON: No significant abnormality. APPENDIX: No significant abnormality. PERITONEUM: Trace free fluid is seen along the liver and spleen. A moderate amount of free air is pre sent, mainly along the upper abdomen. Questional abscess in the pelvis as described above. No other o rganized fluid collection is seen. LYMPH NODES: No significant adenopathy. ABDOMINAL AORTA and ARTERIES: No significant abnormality. IVC and VEINS: No significant abnormality. URINARY BLADDER: No significant abnormality. REPRODUCTIVE ORGANS: No significant abnormality. ADDITIONAL FINDINGS: None. BONES: No significant abnormality. IMPRESSION: 1. CT evidence of gastroenteritis complicated by bowel perforation with a pelvic abscess versus congl omerate loops of small bowel as described above. 2. Additional findings as above. CRITICAL RESULT: Time of Discovery (MEDICAL RECORDS COORDINATOR/CDT): 9:25 Time of Communication (MEDICAL RECORDS COORDINATOR/CDT): 9:30 Licensed Practitioner Receiving Report: Dr. Ponce Read-Back Performed: Yes. Signer Name: Jero Story MD Signed: 08/10/2020 2:23 PM Workstation Name: [id number]
--- NOTE | 2020-08-10 15:09 | Operative Report ---
Operative Report Operative Report: Date: August 10, 2020 Surgeon: Jaydon Reynolds MD Head Cook surgeon: Henna Phillips DO Procedure:1. Diagnostic laparoscopy, 2. Exploratory laparotomy, 3. Segmental sigmoid colon resection, 4. Colostomy Anesthesia:GETA Pre-op diagnosis: Perforated viscus Postop diagnosis: Perforated sigmoid colon Indication: Patient is a 45-year-old male who presented to the emergency room with a 2-day history of worsening abdominal pain nausea and vomiting. He was having coffee-ground emesis he had a GI consult in the emergency room for concern of GI bleed. Patient had a CT scan which showed free air. Patient was hypotensive and tachycardic with elevated white count. Patient was consented for emergency abdominal exploration. Details of procedure: Patient was brought into the OR suite and laid in supine position. Bilateral lower extremity SCDs were placed. General anesthesia was induced via successful endotracheal tube intubation. A Herrmann catheter was inserted under sterile conditions. Patient's abdomen was prepped and draped in sterile fashion. After a timeout, via stab incision in the left upper quadrant a Veress needle was used to insufflate the abdomen to a pressure of 15 mmHg. There was noted to be gross distention of his small bowel. There is also noted to be turbid fluid in all 4 quadrants. Starting at the stomach and proximal small bowel, there was noted to be some fibrinous exudate but no inflammatory tissue or perforation appreciated. Due to low visibility, it was decided to convert to exploratory laparotomy to examine the entire small bowel looking for the perforation. Using a 10 blade scalpel a vertical incision was made starting at the xiphoid to below the umbilicus. His small bowel was eviscerated. It was inspected starting at the ligament of Treitz. From the ligament of Treitz to the terminal ileum there were no perforations noted. Attention was directed toward the colon, there was noted to be a large approximately 1 cm defect in the sigmoid colon. Of note there were no signs of diverticular disease, or inflamed tissue. The edges of the perforation were noted to be clean, consistent with a traumatic perforation. At this time due to gross purulent fluid in the abdominal cavity, and his septic picture, it was decided to do a sigmoid resection with colostomy. The sigmoid colon contained perforation was resected using KARMA stapler. The mesentery was taken with an Enseal device. The distal sigmoid colon was marked with a 2-0 Prolene. The proximal colon was mobilized medially by taking down the white line of Toldt. An ostomy site was created approximately chcf between his left subcostal margin anterior iliac spine. A quarter sized area of skin down to the fascia was excised. The rectus muscle was split. The colon was brought up through this ostomy site. The abdominal cavity was irrigated with warm saline. A drain was left exiting out of the right side and directed into the pelvis. The midline fascia was closed with a #1 looped PDS. The skin was closed with rachel. The stapled end of the proximal colon was excised. Using 2-0 Vicryl sutures, the ostomy was created entering the mucosa from serosa and at the corners to the fascia. It was completed in a [place] fashion. The mucosa appeared viable, and an ostomy concha liance was placed. Patient was awoken, extubated, and taken to critical care in stable condition. EBL: 100 mL Specimen: Sigmoid colon Complication: None immediate
--- NOTE | 2020-08-10 16:08 | Post Anesthesia Evaluation ---
- Post Anesthesia Evaluation Patient Participated: Yes Airway Patent: Yes Stable Respiratory Function: Yes Nausea/Vomiting: No Temp > 96.8F: Yes Pain Manageable: Yes Adequeate Hydration: Yes Anesthesia Complications: No
--- NOTE | 2020-08-10 16:43 | Event Note ---
Date: 08/10/20 given bowel perf no endoscopic intervention indicated, GI will sign off, please call back if we can be of any further assistance
[2020-08-10 17:52] LABS: Bilirubin,Urine NEG (Negative); Blood,Urine SM (Negative); Color,Urine Yellow (Yellow); Mucus,Urine FEW /HPF; Protein,Urine <15 mg/dL mg/dL (Negative); Urobilinogen,Urine < 2.0 mg/dL (<2.0)
[2020-08-10] MEDS ORDERED: CEFEPIME/NS 2 GM/100 ML 2 GM/100 ML BAG IV SCH (18:00)
[2020-08-10] MEDS: metroNIDAZOLE/NS 500 MG/100 ML 500 MG/100 ML BAG IV SCH ×2 (19:02→21:34)
[2020-08-10] MEDS: KETOROLAC 30 MG/1 ML INJ IV SCH (19:14)
[2020-08-10] MEDS ORDERED: FAMOTIDINE 20 MG/2 ML INJ IV SCH (22:00)
[2020-08-11] MEDS: KETOROLAC 30 MG/1 ML INJ IV SCH ×5 (00:28→23:28)
--- NOTE | 2020-08-11 02:38 | Consultation ---
DATE OF CONSULTATION: 08/10/2020 PULMONARY CRITICAL CARE CONSULTATION CONSULTING PHYSICIAN: Dr. Ponce. REASON FOR CONSULTATION: Perforated viscus. CHIEF COMPLAINT AND HISTORY OF PRESENT ILLNESS: The patient is a 45-year-old male with past medical history he denies who was brought into the Emergency Room. The patient per his niece who gave the history in the ER, has a history of recreational drug use with ice. He has a distant history of gallbladder stones. He may have had a cholecystectomy in the past. He was brought into the hospital with generalized weakness, nausea, vomiting, abdominal pain and distention. He describes the pain is all over, worse with palpation and decreases with rest. He had a cough that was dry. He denied any trauma. He was evaluated in the Emergency Room. A GI consult was placed and then a General Surgery consult was placed. Ultimately, the evaluation was consistent with sepsis picture and probable acute abdomen and a decision was made to take him to the OR for an exploratory laparotomy. In the OR, they found a perforated colon, unclear the reason for the perforation, not necessarily consistent with diverticulosis. He had a segmental sigmoid colon resection, a colostomy was placed, on postop he was brought into the intensive care unit. When I stopped by to see him was rested in bed. He is extubated a little bit of oxygen. Feels better. Denies any acute abdominal pain was not controlled. He denies a history of tobacco use or abuse. This really is as much of the history of presentation as I have. PAST MEDICAL HISTORY: Substance abuse. PAST SURGICAL HISTORY: Unknown. MEDICATIONS: He was on at the time I stopped by to see him, according to the medication administration record included the following: He was on Tylenol 650 mg p.o. q.6 hours p.r.n. mild pain or fevers, albuterol nebulizer treatments 2.5 mg q.3 hours p.r.n. shortness of breath, cefepime 2 g IV daily, Dilaudid 0.25 mg IV q.4 hours p.r.n. moderate pain as well as 0.5 mg IV for severe pain p.r.n., Flagyl 500 mg IV q.8 hours, Protonix drip was going at 8 mg per hour. ALLERGIES: No known drug allergies. DIET: Well built gentleman. Denies acute weight loss or gain in the preceding few weeks to months. FAMILY AND SOCIAL HISTORY: Lives in the community, was brought in by his niece, I believe. Denies alcohol or tobacco use or abuse. There is a history of drug use. Family history is otherwise unknown. REVIEW OF SYSTEMS: Difficult to obtain secondary to the patient's medical and mental condition. Since he has been here, no gross hematochezia or melena, no gross hematuria or dysuria. He complained of the abdominal pain. He had nausea and vomiting. No witnessed seizures. Review of systems otherwise unobtainable or as in the body of history above. PHYSICAL EXAMINATION: VITAL SIGNS: At presentation, he was afebrile, temperature 97.8 degrees Fahrenheit, pulse as high as 135, respiratory rate 28, blood pressure as low as 90/57, O2 sats were 96% at the time I saw him this was on room air. GENERAL: Again, he is a well-built male. Normocephalic and atraumatic. Resting in bed with mildly increased respiratory effort at rest. HEAD, EYES, EARS, NOSE AND THROAT: Anicteric. No conjunctival erythema. Oropharynx was dry. NECK: No gross jugular venous distention, no thyromegaly. Grossly, there were no palpable lymph nodes in the supraclavicular or submandibular lymph node chains. LUNGS: Auscultation of both lung pickens are unremarkable. Good bilateral air movement, faint basilar inspiratory crackles. No wheezing. HEART: Sounds 1 and 2 are heard at the time of my evaluation, regular rate and rhythm without overt rubs or murmurs. ABDOMEN: Soft, full, bowel sounds are positive, but hypoactive. He had a colostomy tube in the left lower abdomen, post ex-lap incisions. EXTREMITIES: Without overt digital clubbing or cyanosis, no pedal edema. Pedal pulses are 2+ bilaterally. NEUROLOGIC: Pupils are equal, round, about 4 mm, reactive to light. Extraocular muscle movements were intact. He moves all 4 extremities spontaneously. SKIN: Normal turgor in the areas examined without overt cellulitis or rash. He does have the postop changes. PSYCHIATRIC: Mood was normal. Affect was appropriate. He had intact judgment and insight. LABORATORY DATA: From my review; white count 17,800, hemoglobin 16.0, hematocrit 47.5, platelet count 209, 14% band forms on the manual differential. INR 1.38. D-dimer 4279. Serum sodium 135, potassium 4.7, chloride 94, bicarbonate 22, BUN 56, creatinine 3.2, glucose 153. Lactic acid level was 4.20, now down to 4.3. Albumin 3.3, otherwise liver function test within normal limits. CRP elevated at 33.8. Procalcitonin is significantly elevated greater than 200. TSH was within normal limits. Alcohol, Tylenol and aspirin levels were within expected limits. Coronavirus PCR was negative. Two sets of blood cultures, no growth to date. Chest x-ray really except for some slowly developing basilar atelectasis, otherwise clear. CT scan of his chest was also done. I have reviewed the radiologist's interpretation of the CT abdomen and pelvis, it shows evidence of gastroenteritis complicated by bowel perforation with a pelvic abscess versus conglomerate loops of small bowel. ASSESSMENT: 1. Severe sepsis secondary to perforated abdominal viscus. 2. Perforated abdominal viscus. 3. Peritonitis. 4. History of substance abuse. 5. Leukocytosis. 6. Hemoconcentration. 7. Mild hyponatremia. 8. Lactic acidosis. PLAN: We will keep him in the ICU and watch him overnight. We will continue IV antibiotics as ordered. I will also begin IV fluids for the acute kidney injury. Oxygen will be given as necessary to keep sats greater than or equal to about 90%. Aspiration precautions will be maintained. He is on GI prophylaxis. GI evaluation is ongoing. I will defer to surgery for further management. Wound care will be per the wound care nurses. Flu and pneumonia vaccination will be addressed per protocol. Tobacco abstinence, illicit drug use or abuse has been strongly counseled against. Thank you very much for the consult. We will follow along and make further recommendations as picture progresses. TID: [id number] RECEIPT: [id number] YANA/MANNIE KENNEDY
[2020-08-11] MEDS: PANTOPRAZOLE 80 MG in SODIUM CHLORIDE 0.9% 100 ML IV SCH ×2 (04:47→15:51)
[2020-08-11] MEDS: metroNIDAZOLE/NS 500 MG/100 ML 500 MG/100 ML BAG IV SCH ×3 (06:02→22:11)
[2020-08-11 08:36] LABS: Hematocrit 40.7 % (35.5-45.6); Hemoglobin 13.5 gm/dl (11.8-15.2); Mean Corpuscular HGB Conc 33 % (32-34); Mean Corpuscular Volume 89 fl (84-94); Platelet Count 205 K/mm3 (140-440); Red Blood Count 4.57 M/mm3 (3.65-5.03); Red Cell Distribution Width 14.7 % (13.2-15.2)
[2020-08-11 10:52] LABS: Calcium 7.9 mg/dL (8.4-10.2)
[2020-08-11] MEDS: D5W/0.9% NACL 1,000 ML IV SCH (11:46)
--- NOTE | 2020-08-11 13:40 | Progress Note ---
Assessment and Plan Severe sepsis Perforated abdominal viscus Peritonitis History of substance abuse Leukocytosis Hemoconcentration Mild hyponatremia Lactic acidosis (Hemodynamically stable but still at risk for DT's and needs close observation) - downgrade to IMCU - Wound care per RN/WCT - supplemental oxygen to keep O2 sats > 90% - prn Bronchodilators (JUNIE) with pulm hygiene per RT - avoid nephrotoxins, renally dose all medications - mobility protocols to prevent pressure ulcers - PT/OT as tolerated - continue accuchecks with glycemic control per SSI for target blood glucose < 180 mg/dL - Smoking cessation strongly counseled at the bedside - home oxygen evaluation at discharge - GI & VTE prophylaxis - Flu & pneumovax per protocol - continue other care per attending / other consultants - prn analgesia per pain score ... re-evaluate in am & prn I have spent ( >35 ) minutes with the patient w/ >50% of the time spent counseling and/or coordinating care for this patient. Counseling topics and/or how time was spent coordinating patient's care is outlined in the impression and plan above. Subjective Date of service: 08/11/20 Principal diagnosis: Severe sepsis; Perforated Abd. viscus; Peritonitis; Lactic acidosis Interval history: Patient is seen today for: Severe sepsis; Perforated abdominal viscus; Peritonitis; H/O substance abuse; Mild hyponatremia; Lactic acidosis Seen and examined at bedside; 24hour events reviewed; nursing and respiratory care staff consulted; no adverse overnight events reported to me; restring peacefully in bed; no obvious withdrawal symptoms; no emesis or overt aspiration; denies uncontrolled pain; NGT remains to LIS with non-bloody effluent Objective Vital Signs - 12hr 08/11/20 08/11/20 08/11/20 01:40 01:50 02:00 Temperature Pulse Rate 96 H 96 H 100 H Pulse Rate [ From Monitor] Respiratory 14 13 18 Rate Blood Pressure 127/84 127/84 123/84 O2 Sat by Pulse 96 96 93 Oximetry 08/11/20 08/11/20 08/11/20 02:10 02:20 02:30 Temperature Pulse Rate 95 H 102 H 97 H Pulse Rate [ From Monitor] Respiratory 16 21 19 Rate Blood Pressure 123/84 123/84 123/84 O2 Sat by Pulse 95 96 96 Oximetry 08/11/20 08/11/20 08/11/20 02:40 02:50 03:00 Temperature Pulse Rate 96 H 96 H 87 Pulse Rate [ From Monitor] Respiratory 19 15 14 Rate Blood Pressure 123/84 123/84 134/85 O2 Sat by Pulse 95 95 97 Oximetry 08/11/20 08/11/20 08/11/20 03:07 03:10 03:20 Temperature Pulse Rate 95 H 100 H Pulse Rate [ From Monitor] Respiratory 18 14 13 Rate Blood Pressure 134/85 134/85 O2 Sat by Pulse 96 95 95 Oximetry 08/11/20 08/11/20 08/11/20 03:22 03:30 03:40 Temperature 97.8 F Pulse Rate 96 H 96 H Pulse Rate [ From Monitor] Respiratory 15 15 Rate Blood Pressure 134/85 134/85 O2 Sat by Pulse 96 95 Oximetry 08/11/20 08/11/20 08/11/20 03:50 04:00 04:10 Temperature Pulse Rate 101 H 98 H 93 H Pulse Rate [ From Monitor] Respiratory 14 13 14 Rate Blood Pressure 134/85 126/85 126/85 O2 Sat by Pulse 95 92 95 Oximetry 08/11/20 08/11/20 08/11/20 04:20 04:30 04:40 Temperature Pulse Rate 92 H 92 H 99 H Pulse Rate [ From Monitor] Respiratory 14 14 24 Rate Blood Pressure 126/85 126/85 126/85 O2 Sat by Pulse 95 96 97 Oximetry 08/11/20 08/11/20 08/11/20 04:50 05:00 05:10 Temperature Pulse Rate 102 H 92 H 111 H Pulse Rate [ From Monitor] Respiratory 18 14 16 Rate Blood Pressure 126/85 126/85 126/85 O2 Sat by Pulse 95 94 95 Oximetry 08/11/20 08/11/20 08/11/20 05:20 05:30 05:40 Temperature Pulse Rate 93 H 72 98 H Pulse Rate [ From Monitor] Respiratory 16 20 15 Rate Blood Pressure 126/85 126/85 126/85 O2 Sat by Pulse 96 96 95 Oximetry 08/11/20 08/11/20 08/11/20 05:41 05:50 06:06 Temperature Pulse Rate 72 96 H Pulse Rate [ From Monitor] Respiratory 18 14 15 Rate Blood Pressure 126/85 O2 Sat by Pulse 96 95 Oximetry 08/11/20 08/11/20 08/11/20 07:46 08:00 12:00 Temperature 98.7 F 98.2 F Pulse Rate 89 68 Pulse Rate [ 89 From Monitor] Respiratory 12 Rate Blood Pressure O2 Sat by Pulse 94 96 Oximetry Constitutional: appears uncomfortable, other (middle aged male with mildly increased respiratory effort at rest) Eyes: non-icteric ENT: oropharynx moist, other (NGT) Neck: supple, no lymphadenopathy, no JVD Effort: mildly labored Ascultation: Bilateral: clear, diminished breath sounds (bases) Percussion: Bilateral: not dull Cardiovascular: regular rate and rhythm Gastrointestinal: normoactive bowel sounds, soft, non-tender, non-distended, other (colostomy in place) Integumentary: normal, other (post-op changes) Extremities: no cyanosis, no edema, pink and warm, pulses normal Neurologic: non-focal exam, pupils equal and round, CN II-XII normal, motor strength normal and Psychiatric: anxious CBC and BMP: 08/11/20 08:17 08/11/20 08:17 ABG, PT/INR, D-dimer: PT/INR, D-dimer PT 17.6 Sec. (12.2-14.9) H 08/10/20 Unknown INR 1.38 (0.87-1.13) H 08/10/20 Unknown D-Dimer 4279.32 ng/mlDDU (0-234) H 08/10/20 08:56 Abnormal lab findings: Abnormal Labs 08/10/20 08/10/20 08/10/20 08:56 08:56 08:56 WBC 17.8 H RBC 5.31 H Hgb 16.0 H Hct 47.5 H Seg Neuts % (Manual) 73.0 H Lymphocytes % (Manual) 4.0 L Monocytes % (Manual) 8.0 H Seg Neutrophils # Man 13.0 H Lymphocytes # (Manual) 0.7 L Monocytes # (Manual) 1.4 H PT INR D-Dimer 4279.32 H Sodium 135 L Chloride 94.4 L BUN 56 H Creatinine 3.2 H Glucose 153 H Lactic Acid Calcium Ferritin C-Reactive Protein 33.80 H Total Protein 5.9 L Albumin 3.3 L Lipase Salicylates Acetaminophen 08/10/20 08/10/20 08/10/20 08:56 08:56 08:56 WBC RBC Hgb Hct Seg Neuts % (Manual) Lymphocytes % (Manual) Monocytes % (Manual) Seg Neutrophils # Man Lymphocytes # (Manual) Monocytes # (Manual) PT INR D-Dimer Sodium Chloride BUN Creatinine Glucose Lactic Acid 4.20 H* Calcium Ferritin 429.8 H C-Reactive Protein Total Protein Albumin Lipase Salicylates < 0.3 L Acetaminophen 08/10/20 08/10/20 08/10/20 08:56 08:56 22:55 WBC RBC Hgb Hct Seg Neuts % (Manual) Lymphocytes % (Manual) Monocytes % (Manual) Seg Neutrophils # Man Lymphocytes # (Manual) Monocytes # (Manual) PT INR D-Dimer Sodium Chloride BUN Creatinine Glucose Lactic Acid 2.70 H* Calcium Ferritin C-Reactive Protein Total Protein Albumin Lipase 9 L Salicylates Acetaminophen 5.0 L 08/10/20 08/10/20 08/11/20 Unknown Unknown 08:17 WBC RBC Hgb Hct Seg Neuts % (Manual) Lymphocytes % (Manual) Monocytes % (Manual) Seg Neutrophils # Man Lymphocytes # (Manual) Monocytes # (Manual) PT 17.6 H INR 1.38 H D-Dimer Sodium 135 L Chloride 97.7 L BUN 65 H Creatinine 1.6 H Glucose 126 H Lactic Acid 4.30 H* Calcium 7.9 L Ferritin C-Reactive Protein Total Protein Albumin Lipase Salicylates Acetaminophen Allied health notes reviewed: nursing
--- NOTE | 2020-08-11 15:54 | Progress Note ---
Assessment and Plan POD#1 s/p sigmoidectomy with hartmans pouch for sigmoid perforation. Afebrile and stable. Pt has post op ileus will await return of bowel function and continue NGT decompression. Will close eye on colostomy stoma. Hopefully dark color is due to congestion and will resolve. Subjective Date of service: 08/11/20 Narrative: no acute events overnight. Pt is resting well. Denies pain. Objective Vital Signs - 12hr 08/11/20 08/11/20 08/11/20 04:00 04:10 04:20 Temperature Pulse Rate 98 H 93 H 92 H Pulse Rate [ From Monitor] Respiratory 13 14 14 Rate Blood Pressure 126/85 126/85 126/85 O2 Sat by Pulse 92 95 95 Oximetry 08/11/20 08/11/20 08/11/20 04:30 04:40 04:50 Temperature Pulse Rate 92 H 99 H 102 H Pulse Rate [ From Monitor] Respiratory 14 24 18 Rate Blood Pressure 126/85 126/85 126/85 O2 Sat by Pulse 96 97 95 Oximetry 08/11/20 08/11/20 08/11/20 05:00 05:10 05:20 Temperature Pulse Rate 92 H 111 H 93 H Pulse Rate [ From Monitor] Respiratory 14 16 16 Rate Blood Pressure 126/85 126/85 126/85 O2 Sat by Pulse 94 95 96 Oximetry 08/11/20 08/11/20 08/11/20 05:30 05:40 05:41 Temperature Pulse Rate 72 98 H 72 Pulse Rate [ From Monitor] Respiratory 20 15 18 Rate Blood Pressure 126/85 126/85 O2 Sat by Pulse 96 95 96 Oximetry 08/11/20 08/11/20 08/11/20 05:50 06:00 06:06 Temperature Pulse Rate 96 H 97 H Pulse Rate [ From Monitor] Respiratory 14 16 15 Rate Blood Pressure 126/85 135/80 O2 Sat by Pulse 95 94 Oximetry 08/11/20 08/11/20 08/11/20 06:10 06:20 06:30 Temperature Pulse Rate 87 86 87 Pulse Rate [ From Monitor] Respiratory 14 13 14 Rate Blood Pressure 135/80 135/80 135/80 O2 Sat by Pulse 96 95 95 Oximetry 08/11/20 08/11/20 08/11/20 06:40 06:50 07:00 Temperature Pulse Rate 82 96 H 92 H Pulse Rate [ From Monitor] Respiratory 14 22 18 Rate Blood Pressure 135/80 135/80 132/75 O2 Sat by Pulse 96 97 94 Oximetry 08/11/20 08/11/20 08/11/20 07:10 07:20 07:30 Temperature Pulse Rate 84 87 93 H Pulse Rate [ From Monitor] Respiratory 15 14 15 Rate Blood Pressure 135/80 135/80 135/80 O2 Sat by Pulse 96 96 96 Oximetry 08/11/20 08/11/20 08/11/20 07:40 07:46 07:50 Temperature Pulse Rate 86 84 Pulse Rate [ From Monitor] Respiratory 13 13 Rate Blood Pressure 135/80 135/80 O2 Sat by Pulse 96 94 95 Oximetry 08/11/20 08/11/20 08/11/20 08:00 08:10 08:20 Temperature 98.7 F Pulse Rate 94 H 102 H 110 H Pulse Rate [ 89 From Monitor] Respiratory 20 14 14 Rate Blood Pressure 124/79 124/79 124/79 O2 Sat by Pulse 92 97 96 Oximetry 08/11/20 08/11/20 08/11/20 08:30 08:40 08:50 Temperature Pulse Rate 80 92 H 90 Pulse Rate [ From Monitor] Respiratory 14 15 22 Rate Blood Pressure 124/79 124/79 124/79 O2 Sat by Pulse 95 95 96 Oximetry 08/11/20 08/11/20 08/11/20 09:00 09:10 09:20 Temperature Pulse Rate 85 86 79 Pulse Rate [ From Monitor] Respiratory 15 13 15 Rate Blood Pressure 126/82 126/82 126/82 O2 Sat by Pulse 94 96 96 Oximetry 08/11/20 08/11/20 08/11/20 09:30 09:40 09:50 Temperature Pulse Rate 76 68 81 Pulse Rate [ From Monitor] Respiratory 15 15 13 Rate Blood Pressure 126/82 126/82 126/82 O2 Sat by Pulse 96 96 96 Oximetry 08/11/20 08/11/20 08/11/20 10:00 10:10 10:20 Temperature Pulse Rate 97 H 85 85 Pulse Rate [ From Monitor] Respiratory 19 14 14 Rate Blood Pressure 114/77 114/77 114/77 O2 Sat by Pulse 94 97 96 Oximetry 08/11/20 08/11/20 08/11/20 10:30 10:40 10:50 Temperature Pulse Rate 91 H 95 H 87 Pulse Rate [ From Monitor] Respiratory 15 15 14 Rate Blood Pressure 114/77 114/77 114/77 O2 Sat by Pulse 96 96 95 Oximetry 08/11/20 08/11/20 08/11/20 11:00 11:10 11:20 Temperature Pulse Rate 85 96 H 96 H Pulse Rate [ From Monitor] Respiratory 13 26 H 25 H Rate Blood Pressure 120/83 120/83 120/83 O2 Sat by Pulse 96 95 95 Oximetry 08/11/20 08/11/20 08/11/20 11:30 11:40 11:50 Temperature Pulse Rate 86 68 95 H Pulse Rate [ From Monitor] Respiratory 24 12 20 Rate Blood Pressure 120/83 120/83 120/83 O2 Sat by Pulse 95 96 95 Oximetry 08/11/20 08/11/20 08/11/20 12:00 12:10 12:20 Temperature 98.2 F Pulse Rate 85 71 85 Pulse Rate [ 68 From Monitor] Respiratory 13 12 14 Rate Blood Pressure 121/81 121/81 121/81 O2 Sat by Pulse 93 96 96 Oximetry 08/11/20 08/11/20 08/11/20 12:30 12:40 12:50 Temperature Pulse Rate 77 104 H 95 H Pulse Rate [ From Monitor] Respiratory 13 22 22 Rate Blood Pressure 121/81 121/81 121/81 O2 Sat by Pulse 95 97 96 Oximetry 08/11/20 08/11/20 08/11/20 13:00 13:10 13:20 Temperature Pulse Rate 79 72 71 Pulse Rate [ From Monitor] Respiratory 22 13 13 Rate Blood Pressure 121/74 121/74 121/81 O2 Sat by Pulse 92 96 96 Oximetry 08/11/20 08/11/20 08/11/20 13:30 13:40 13:50 Temperature Pulse Rate 95 H 67 72 Pulse Rate [ From Monitor] Respiratory 22 12 13 Rate Blood Pressure 121/81 121/81 121/74 O2 Sat by Pulse 97 97 96 Oximetry 08/11/20 08/11/20 08/11/20 14:00 14:10 14:20 Temperature Pulse Rate 67 75 82 Pulse Rate [ From Monitor] Respiratory 14 13 14 Rate Blood Pressure 128/80 128/80 128/80 O2 Sat by Pulse 100 99 95 Oximetry 08/11/20 08/11/20 08/11/20 14:30 14:40 14:50 Temperature Pulse Rate 72 86 71 Pulse Rate [ From Monitor] Respiratory 14 14 12 Rate Blood Pressure 128/80 128/80 128/80 O2 Sat by Pulse 96 95 96 Oximetry 08/11/20 08/11/20 08/11/20 15:00 15:10 15:20 Temperature Pulse Rate 79 78 72 Pulse Rate [ From Monitor] Respiratory 12 13 13 Rate Blood Pressure 126/84 126/84 126/84 O2 Sat by Pulse 94 95 95 Oximetry 08/11/20 15:30 Temperature Pulse Rate 106 H Pulse Rate [ From Monitor] Respiratory 20 Rate Blood Pressure 126/84 O2 Sat by Pulse 94 Oximetry - General physical appearance well developed, well nourished, no distress, no pain - Respiratory normal expansion, normal respiratory effort - Abdomen soft, other (ostomy stoma purple and confested. serous drainage in bag. appropriately tender to palpation. NGT bilious, GAEL drain serous) - Labs 08/11/20 08:17 08/11/20 08:17 Diabetes panel 08/11/20 Range/Units 08:17 Sodium 135 L (137-145) mmol/L Potassium 4.5 (3.6-5.0) mmol/L Chloride 97.7 L (98-107) mmol/L Carbon Dioxide 26 (22-30) mmol/L BUN 65 H (9-20) mg/dL Creatinine 1.6 H (0.8-1.3) mg/dL Glucose 126 H (75-100) mg/dL Calcium 7.9 L (8.4-10.2) mg/dL Calcium panel 08/11/20 Range/Units 08:17 Calcium 7.9 L (8.4-10.2) mg/dL Pituitary panel 08/11/20 Range/Units 08:17 Sodium 135 L (137-145) mmol/L Potassium 4.5 (3.6-5.0) mmol/L Chloride 97.7 L (98-107) mmol/L Carbon Dioxide 26 (22-30) mmol/L BUN 65 H (9-20) mg/dL Creatinine 1.6 H (0.8-1.3) mg/dL Glucose 126 H (75-100) mg/dL Calcium 7.9 L (8.4-10.2) mg/dL Adrenal panel 08/11/20 Range/Units 08:17 Sodium 135 L (137-145) mmol/L Potassium 4.5 (3.6-5.0) mmol/L Chloride 97.7 L (98-107) mmol/L Carbon Dioxide 26 (22-30) mmol/L BUN 65 H (9-20) mg/dL Creatinine 1.6 H (0.8-1.3) mg/dL Glucose 126 H (75-100) mg/dL Calcium 7.9 L (8.4-10.2) mg/dL
--- NOTE | 2020-08-11 16:13 | Progress Note ---
Assessment and Plan 45 year old male presented to ED with a history of peptic ulcer disease presented to ER with two day history of worsening abdominal pain, and coffee ground emesis. CT scan shows free air in the upper part of the abdomen. Pt presented tachycardic and hypotensive. General surgery was consulted in ED. A/P -- Perforated viscus Surgical team consulted in ED, s/p sigmoidectomy with hartmans pouch for sigmoid perforation. Patient currently n.p.o., continue IV fluid hydration Post op care per general surgeon -- Sepsis likely due to perforated viscus Continue empiric antibiotics, follow culture, IV fluid -- Acute kidney injury (BONY) with acute tubular necrosis (ATN) Likely due to sepsis Continue IV fluid resuscitation therapy, monitor urine output every shift, repeat BMP in a.m. to monitor serum creatinine as well as GFR. -- Metabolic acidosis IV fluid resuscitation therapy, serial lactic acid level, supportive care. --Postoperative ileus Continue n.p.o. status, continue IV fluid, serial abdominal examination, abdominal x-ray in the am --History of peptic ulcer disease, continue Protonix --DVT prophylaxis SCD to bilateral lower extremities while in bed, Daily clinical Course: 08/11/20: POD#1 s/p sigmoidectomy with hartmans pouch for sigmoid perforation. Afebrile and stable. Pt has post op ileus will await return of bowel function and continue NGT decompression. Subjective Date of service: 08/11/20 Principal diagnosis: Severe sepsis; Perforated Abd. viscus; Peritonitis; Lactic acidosis Interval history: Patient seen and examined. Medical records and medication list reviewed. No acute event overnight noted by the RN. s/p sigmoidectomy with hartmans pouch for sigmoid perforation. Patient remains n.p.o. with NG suction Discussed plan of care at bedside with patient. Objective - Exam Narrative Exam: GENERAL: well-developed and well-nourished male lying on bed appeared to be in no discomfort. HEENT: Normocephalic. Atraumatic. No conjunctival congestion or icterus. Patient has moist mucous membranes. NECK: Supple. Trachea midline. CHEST/LUNGS: Clear to auscultated bilaterally, breathing nonlabored. No wheezes crackles or rhonchi. HEART/CARDIOVASCULAR: Regular in rate and rhythm. S1 and S2 positive. ABDOMEN: Abdomen is soft, colostomy bag in place SKIN: There is no rash. Warm and dry. NEURO: No focal motor deficit. Follows command. MUSCULOSKELETAL: No joint effusion or tenderness. EXTRIMITY: No edema, no cyanosis or clubbing. PSYCH: Cooperative. - Constitutional Vitals: Vital Signs - 12hr 08/11/20 08/11/20 08/11/20 04:20 04:30 04:40 Temperature Pulse Rate 92 H 92 H 99 H Pulse Rate [ From Monitor] Respiratory 14 14 24 Rate Blood Pressure 126/85 126/85 126/85 O2 Sat by Pulse 95 96 97 Oximetry 08/11/20 08/11/20 08/11/20 04:50 05:00 05:10 Temperature Pulse Rate 102 H 92 H 111 H Pulse Rate [ From Monitor] Respiratory 18 14 16 Rate Blood Pressure 126/85 126/85 126/85 O2 Sat by Pulse 95 94 95 Oximetry 08/11/20 08/11/20 08/11/20 05:20 05:30 05:40 Temperature Pulse Rate 93 H 72 98 H Pulse Rate [ From Monitor] Respiratory 16 20 15 Rate Blood Pressure 126/85 126/85 126/85 O2 Sat by Pulse 96 96 95 Oximetry 08/11/20 08/11/20 08/11/20 05:41 05:50 06:00 Temperature Pulse Rate 72 96 H 97 H Pulse Rate [ From Monitor] Respiratory 18 14 16 Rate Blood Pressure 126/85 135/80 O2 Sat by Pulse 96 95 94 Oximetry 08/11/20 08/11/20 08/11/20 06:06 06:10 06:20 Temperature Pulse Rate 87 86 Pulse Rate [ From Monitor] Respiratory 15 14 13 Rate Blood Pressure 135/80 135/80 O2 Sat by Pulse 96 95 Oximetry 08/11/20 08/11/20 08/11/20 06:30 06:40 06:50 Temperature Pulse Rate 87 82 96 H Pulse Rate [ From Monitor] Respiratory 14 14 22 Rate Blood Pressure 135/80 135/80 135/80 O2 Sat by Pulse 95 96 97 Oximetry 08/11/20 08/11/20 08/11/20 07:00 07:10 07:20 Temperature Pulse Rate 92 H 84 87 Pulse Rate [ From Monitor] Respiratory 18 15 14 Rate Blood Pressure 132/75 135/80 135/80 O2 Sat by Pulse 94 96 96 Oximetry 08/11/20 08/11/20 08/11/20 07:30 07:40 07:46 Temperature Pulse Rate 93 H 86 Pulse Rate [ From Monitor] Respiratory 15 13 Rate Blood Pressure 135/80 135/80 O2 Sat by Pulse 96 96 94 Oximetry 08/11/20 08/11/20 08/11/20 07:50 08:00 08:10 Temperature 98.7 F Pulse Rate 84 94 H 102 H Pulse Rate [ 89 From Monitor] Respiratory 13 20 14 Rate Blood Pressure 135/80 124/79 124/79 O2 Sat by Pulse 95 92 97 Oximetry 08/11/20 08/11/20 08/11/20 08:20 08:30 08:40 Temperature Pulse Rate 110 H 80 92 H Pulse Rate [ From Monitor] Respiratory 14 14 15 Rate Blood Pressure 124/79 124/79 124/79 O2 Sat by Pulse 96 95 95 Oximetry 08/11/20 08/11/20 08/11/20 08:50 09:00 09:10 Temperature Pulse Rate 90 85 86 Pulse Rate [ From Monitor] Respiratory 22 15 13 Rate Blood Pressure 124/79 126/82 126/82 O2 Sat by Pulse 96 94 96 Oximetry 08/11/20 08/11/20 08/11/20 09:20 09:30 09:40 Temperature Pulse Rate 79 76 68 Pulse Rate [ From Monitor] Respiratory 15 15 15 Rate Blood Pressure 126/82 126/82 126/82 O2 Sat by Pulse 96 96 96 Oximetry 08/11/20 08/11/20 08/11/20 09:50 10:00 10:10 Temperature Pulse Rate 81 97 H 85 Pulse Rate [ From Monitor] Respiratory 13 19 14 Rate Blood Pressure 126/82 114/77 114/77 O2 Sat by Pulse 96 94 97 Oximetry 08/11/20 08/11/20 08/11/20 10:20 10:30 10:40 Temperature Pulse Rate 85 91 H 95 H Pulse Rate [ From Monitor] Respiratory 14 15 15 Rate Blood Pressure 114/77 114/77 114/77 O2 Sat by Pulse 96 96 96 Oximetry 08/11/20 08/11/20 08/11/20 10:50 11:00 11:10 Temperature Pulse Rate 87 85 96 H Pulse Rate [ From Monitor] Respiratory 14 13 26 H Rate Blood Pressure 114/77 120/83 120/83 O2 Sat by Pulse 95 96 95 Oximetry 08/11/20 08/11/20 08/11/20 11:20 11:30 11:40 Temperature Pulse Rate 96 H 86 68 Pulse Rate [ From Monitor] Respiratory 25 H 24 12 Rate Blood Pressure 120/83 120/83 120/83 O2 Sat by Pulse 95 95 96 Oximetry 08/11/20 08/11/20 08/11/20 11:50 12:00 12:10 Temperature 98.2 F Pulse Rate 95 H 85 71 Pulse Rate [ 68 From Monitor] Respiratory 20 13 12 Rate Blood Pressure 120/83 121/81 121/81 O2 Sat by Pulse 95 93 96 Oximetry 08/11/20 08/11/20 08/11/20 12:20 12:30 12:40 Temperature Pulse Rate 85 77 104 H Pulse Rate [ From Monitor] Respiratory 14 13 22 Rate Blood Pressure 121/81 121/81 121/81 O2 Sat by Pulse 96 95 97 Oximetry 08/11/20 08/11/20 08/11/20 12:50 13:00 13:10 Temperature Pulse Rate 95 H 79 72 Pulse Rate [ From Monitor] Respiratory 22 22 13 Rate Blood Pressure 121/81 121/74 121/74 O2 Sat by Pulse 96 92 96 Oximetry 08/11/20 08/11/20 08/11/20 13:20 13:30 13:40 Temperature Pulse Rate 71 95 H 67 Pulse Rate [ From Monitor] Respiratory 13 22 12 Rate Blood Pressure 121/81 121/81 121/81 O2 Sat by Pulse 96 97 97 Oximetry 08/11/20 08/11/20 08/11/20 13:50 14:00 14:10 Temperature Pulse Rate 72 67 75 Pulse Rate [ From Monitor] Respiratory 13 14 13 Rate Blood Pressure 121/74 128/80 128/80 O2 Sat by Pulse 96 100 99 Oximetry 08/11/20 08/11/20 08/11/20 14:20 14:30 14:40 Temperature Pulse Rate 82 72 86 Pulse Rate [ From Monitor] Respiratory 14 14 14 Rate Blood Pressure 128/80 128/80 128/80 O2 Sat by Pulse 95 96 95 Oximetry 08/11/20 08/11/20 08/11/20 14:50 15:00 15:10 Temperature Pulse Rate 71 79 78 Pulse Rate [ From Monitor] Respiratory 12 12 13 Rate Blood Pressure 128/80 126/84 126/84 O2 Sat by Pulse 96 94 95 Oximetry 08/11/20 08/11/20 15:20 15:30 Temperature Pulse Rate 72 106 H Pulse Rate [ From Monitor] Respiratory 13 20 Rate Blood Pressure 126/84 126/84 O2 Sat by Pulse 95 94 Oximetry - Labs CBC & Chem 7: 08/13/20 05:55 08/13/20 05:55 Labs: Abnormal lab results 08/10/20 08/11/20 Range/Units 22:55 08:17 Sodium 135 L (137-145) mmol/L Chloride 97.7 L (98-107) mmol/L BUN 65 H (9-20) mg/dL Creatinine 1.6 H (0.8-1.3) mg/dL Glucose 126 H (75-100) mg/dL Lactic Acid 2.70 H* (0.7-2.0) mmol/L Calcium 7.9 L (8.4-10.2) mg/dL HEART Score - HEART Score Troponin: Troponin T < 0.010 ng/mL (0.00-0.029) 08/10/20 08:56
[2020-08-11] MEDS: HEPARIN 5,000 UNIT/1 ML VIAL SUB-Q SCH (17:53)
[2020-08-12] MEDS: KETOROLAC 30 MG/1 ML INJ IV SCH ×3 (05:51→17:55)
[2020-08-12] MEDS: D5W/0.9% NACL 1,000 ML IV SCH ×2 (05:51→21:53)
[2020-08-12] MEDS: HEPARIN 5,000 UNIT/1 ML VIAL SUB-Q SCH ×2 (05:51→17:56)
[2020-08-12] MEDS: metroNIDAZOLE/NS 500 MG/100 ML 500 MG/100 ML BAG IV SCH ×3 (05:51→21:53)
[2020-08-12 06:52] LABS: Hemoglobin 11.5 gm/dl (11.8-15.2); Mean Corpuscular HGB Conc 34 % (32-34); Mean Corpuscular Volume 89 fl (84-94); Platelet Count 167 K/mm3 (140-440); Red Blood Count 3.77 M/mm3 (3.65-5.03); Red Cell Distribution Width 14.5 % (13.2-15.2)
[2020-08-12 07:00] LABS: Eosinophils % (Auto) 0.2 % (0.0-4.3); Hematocrit 33.6 % (35.5-45.6); Lymphocytes # (Auto) 0.7 K/mm3 (1.2-5.4); Monocytes # (Auto) 0.6 K/mm3 (0.0-0.8)
[2020-08-12 07:04] LABS: BUN/Creatinine Ratio 44; Blood Urea Nitrogen 40 mg/dL (9-20); Calcium 8.1 mg/dL (8.4-10.2); Hemolysis Index 1
[2020-08-12] MEDS: PANTOPRAZOLE 40 MG INJ IV SCH (10:34)
--- NOTE | 2020-08-12 14:25 | Progress Note ---
Assessment and Plan POD#2 s/p sigmoidectomy with hartmans pouch for sigmoid perforation. Afebrile and stable. Pt has post op ileus will await return of bowel function and continue NGT decompression. Will close eye on colostomy stoma. Hopefully dark color is due to congestion and will resolve. Subjective Date of service: 08/12/20 Narrative: no acute events overnight. Pt was downgraded to IMCU. Pt denies pain. sister is at the bedside. Objective Vital Signs - 12hr 08/12/20 08/12/20 08/12/20 02:30 02:40 02:50 Temperature Pulse Rate 72 90 69 Pulse Rate [ From Monitor] Respiratory 14 22 15 Rate Blood Pressure 117/70 117/70 117/70 O2 Sat by Pulse 95 97 97 Oximetry 08/12/20 08/12/20 08/12/20 03:00 03:10 03:20 Temperature Pulse Rate 68 75 76 Pulse Rate [ From Monitor] Respiratory 13 17 13 Rate Blood Pressure 124/74 124/74 124/74 O2 Sat by Pulse 94 96 95 Oximetry 08/12/20 08/12/20 08/12/20 03:30 03:40 03:50 Temperature Pulse Rate 68 75 75 Pulse Rate [ From Monitor] Respiratory 12 12 13 Rate Blood Pressure 124/74 124/74 124/74 O2 Sat by Pulse 95 96 96 Oximetry 08/12/20 08/12/20 08/12/20 04:00 04:10 04:20 Temperature 97.5 F L Pulse Rate 69 66 77 Pulse Rate [ 75 From Monitor] Respiratory 16 12 12 Rate Blood Pressure 128/71 128/71 128/71 O2 Sat by Pulse 97 96 95 Oximetry 08/12/20 08/12/20 08/12/20 04:30 04:40 04:50 Temperature Pulse Rate 60 73 76 Pulse Rate [ From Monitor] Respiratory 21 19 17 Rate Blood Pressure 128/71 128/71 128/71 O2 Sat by Pulse 96 98 96 Oximetry 08/12/20 08/12/20 08/12/20 05:00 05:10 05:20 Temperature Pulse Rate 71 66 67 Pulse Rate [ From Monitor] Respiratory 13 12 12 Rate Blood Pressure 120/78 120/78 120/78 O2 Sat by Pulse 98 97 97 Oximetry 08/12/20 08/12/20 08/12/20 05:30 05:40 05:50 Temperature Pulse Rate 72 76 77 Pulse Rate [ From Monitor] Respiratory 15 18 18 Rate Blood Pressure 120/78 120/78 120/78 O2 Sat by Pulse 95 96 96 Oximetry 08/12/20 08/12/20 08/12/20 06:00 07:00 07:47 Temperature 98.3 F Pulse Rate 76 Pulse Rate [ From Monitor] Respiratory 18 Rate Blood Pressure 121/76 O2 Sat by Pulse 94 96 Oximetry - General physical appearance well developed, well nourished, no distress, no pain - Respiratory normal expansion, normal respiratory effort - Abdomen soft, other (incision c/d/i, ostomy stoma continues to have ischemic mucosa at the center. More pink at the edges. sero-sang drainage in bag. appropriately tender to palpation, NGT bilious GAEL drain serous) - Labs 08/12/20 05:56 08/12/20 05:56 Diabetes panel 08/12/20 Range/Units 05:56 Sodium 142 D (137-145) mmol/L Potassium 4.2 (3.6-5.0) mmol/L Chloride 107.3 H (98-107) mmol/L Carbon Dioxide 28 (22-30) mmol/L BUN 40 H (9-20) mg/dL Creatinine 0.9 (0.8-1.3) mg/dL Glucose 108 H (75-100) mg/dL Calcium 8.1 L (8.4-10.2) mg/dL Calcium panel 08/12/20 Range/Units 05:56 Calcium 8.1 L (8.4-10.2) mg/dL Pituitary panel 08/12/20 Range/Units 05:56 Sodium 142 D (137-145) mmol/L Potassium 4.2 (3.6-5.0) mmol/L Chloride 107.3 H (98-107) mmol/L Carbon Dioxide 28 (22-30) mmol/L BUN 40 H (9-20) mg/dL Creatinine 0.9 (0.8-1.3) mg/dL Glucose 108 H (75-100) mg/dL Calcium 8.1 L (8.4-10.2) mg/dL Adrenal panel 08/12/20 Range/Units 05:56 Sodium 142 D (137-145) mmol/L Potassium 4.2 (3.6-5.0) mmol/L Chloride 107.3 H (98-107) mmol/L Carbon Dioxide 28 (22-30) mmol/L BUN 40 H (9-20) mg/dL Creatinine 0.9 (0.8-1.3) mg/dL Glucose 108 H (75-100) mg/dL Calcium 8.1 L (8.4-10.2) mg/dL
--- NOTE | 2020-08-12 16:39 | Progress Note ---
Assessment and Plan 45 year old male presented to ED with a history of peptic ulcer disease presented to ER with two day history of worsening abdominal pain, and coffee ground emesis. CT scan shows free air in the upper part of the abdomen. Pt presented tachycardic and hypotensive. General surgery was consulted in ED. A/P -- Perforated viscus Surgical team consulted in ED, s/p sigmoidectomy with hartmans pouch for sigmoid perforation on 08/10/20. Patient currently n.p.o., continue IV fluid hydration Post op care per general surgeon -- Sepsis likely due to perforated viscus Continue empiric antibiotics, follow culture, IV fluid -- Acute kidney injury (BONY) with acute tubular necrosis (ATN) Likely due to sepsis Continue IV fluid resuscitation therapy, monitor urine output every shift, repeat BMP in a.m. to monitor serum creatinine as well as GFR. -- Metabolic acidosis IV fluid resuscitation therapy, serial lactic acid level, supportive care. --Postoperative ileus Continue n.p.o. status, continue IV fluid, serial abdominal examination, abdominal x-ray in the am --History of peptic ulcer disease, continue Protonix --DVT prophylaxis SCD to bilateral lower extremities while in bed, Daily clinical Course: 08/11/20: POD#1 s/p sigmoidectomy with hartmans pouch for sigmoid perforation. Afebrile and stable. Pt has post op ileus will await return of bowel function and continue NGT decompression. 08/12/20: POD#2 Remains Afebrile and stable. Pt has post op ileus and continue NGT decompression. Keep NPO, cont iv fluid Subjective Date of service: 08/12/20 Principal diagnosis: Severe sepsis; Perforated Abd. viscus; Peritonitis; Lactic acidosis Interval history: Patient seen and examined. Medical records and medication list reviewed. No acute event overnight noted by the RN. s/p sigmoidectomy with hartmans pouch for sigmoid perforation. Patient remains n.p.o. with NG suction Discussed plan of care at bedside with patient. Objective - Exam Narrative Exam: GENERAL: well-developed and well-nourished male lying on bed appeared to be in no discomfort. HEENT: Normocephalic. Atraumatic. No conjunctival congestion or icterus. Patient has moist mucous membranes. NECK: Supple. Trachea midline. CHEST/LUNGS: Clear to auscultated bilaterally, breathing nonlabored. No wheezes crackles or rhonchi. HEART/CARDIOVASCULAR: Regular in rate and rhythm. S1 and S2 positive. ABDOMEN: Abdomen is soft, colostomy bag in place SKIN: There is no rash. Warm and dry. NEURO: No focal motor deficit. Follows command. MUSCULOSKELETAL: No joint effusion or tenderness. EXTRIMITY: No edema, no cyanosis or clubbing. PSYCH: Cooperative. - Constitutional Vitals: Vital Signs - 12hr 08/12/20 08/12/20 08/12/20 04:40 04:50 05:00 Temperature Pulse Rate 73 76 71 Respiratory 19 17 13 Rate Blood Pressure 128/71 128/71 120/78 O2 Sat by Pulse 98 96 98 Oximetry 08/12/20 08/12/20 08/12/20 05:10 05:20 05:30 Temperature Pulse Rate 66 67 72 Respiratory 12 12 15 Rate Blood Pressure 120/78 120/78 120/78 O2 Sat by Pulse 97 97 95 Oximetry 08/12/20 08/12/20 08/12/20 05:40 05:50 06:00 Temperature Pulse Rate 76 77 76 Respiratory 18 18 18 Rate Blood Pressure 120/78 120/78 121/76 O2 Sat by Pulse 96 96 94 Oximetry 08/12/20 08/12/20 07:00 07:47 Temperature 98.3 F Pulse Rate Respiratory Rate Blood Pressure O2 Sat by Pulse 96 Oximetry - Labs CBC & Chem 7: 08/13/20 05:55 08/13/20 05:55 Labs: Abnormal lab results 08/12/20 08/12/20 Range/Units 05:56 05:56 Hgb 11.5 L (11.8-15.2) gm/dl Hct 33.6 L D (35.5-45.6) % Lymph % (Auto) 9.0 L (13.4-35.0) % Lymph # (Auto) 0.7 L (1.2-5.4) K/mm3 Seg Neutrophils % 83.8 H (40.0-70.0) % Chloride 107.3 H (98-107) mmol/L BUN 40 H (9-20) mg/dL Glucose 108 H (75-100) mg/dL Calcium 8.1 L (8.4-10.2) mg/dL HEART Score - HEART Score Troponin: Troponin T < 0.010 ng/mL (0.00-0.029) 08/10/20 08:56
--- NOTE | 2020-08-12 18:42 | Progress Note ---
Assessment and Plan Severe sepsis Perforated abdominal viscus Peritonitis History of substance abuse Leukocytosis Hemoconcentration Mild hyponatremia Lactic acidosis (Hemodynamically stable but still at risk for DT's and needs close observation) - continue CIWA protocolo for EtOH withdrawal - MVI supplementation - wound care per RN/WCT - supplemental oxygen to keep O2 sats > 90% - prn Bronchodilators (JUNIE) with pulm hygiene per RT - avoid nephrotoxins, renally dose all medications - mobility protocols to prevent pressure ulcers - PT/OT as tolerated - continue accuchecks with glycemic control per SSI for target blood glucose < 180 mg/dL - Smoking cessation strongly counseled at the bedside - home oxygen evaluation at discharge - GI & VTE prophylaxis - Flu & pneumovax per protocol - continue other care per attending / other consultants - prn analgesia per pain score ... re-evaluate in am & prn I have spent ( >35 ) minutes with the patient w/ >50% of the time spent counseling and/or coordinating care for this patient. Counseling topics and/or how time was spent coordinating patient's care is outlined in the impression and plan above. Subjective Date of service: 08/12/20 Principal diagnosis: Severe sepsis; Perforated Abd. viscus; Peritonitis; Lactic acidosis Interval history: Patient is seen today for: Severe sepsis; Perforated abdominal viscus; Peritonitis; H/O substance abuse; Mild hyponatremia; Lactic acidosis Seen and examined at bedside; 24hour events reviewed; nursing and respiratory care staff consulted; no adverse overnight events reported to me; restring peacefully in bed; denies acute chest pain or SOB; afebrile; no "iron" DT's noted Objective Vital Signs - 12hr 08/12/20 08/12/20 07:00 07:47 Temperature 98.3 F O2 Sat by Pulse 96 Oximetry Constitutional: no acute distress, other (middle aged male with mildly increased respiratory effort at rest) Eyes: non-icteric ENT: oropharynx moist, other (NGT) Neck: supple, no lymphadenopathy, no JVD Effort: mildly labored Ascultation: Bilateral: clear, diminished breath sounds (bases) Percussion: Bilateral: not dull Cardiovascular: regular rate and rhythm Gastrointestinal: normoactive bowel sounds, soft, non-tender, non-distended, other (colostomy in place) Integumentary: normal, other (post-op changes) Extremities: no cyanosis, no edema, pink and warm, pulses normal Neurologic: non-focal exam, pupils equal and round, CN II-XII normal, motor strength normal and Psychiatric: mood appropriate, affect normal CBC and BMP: 08/14/20 04:25 08/16/20 04:13 ABG, PT/INR, D-dimer: PT/INR, D-dimer PT 17.6 Sec. (12.2-14.9) H 08/10/20 Unknown INR 1.38 (0.87-1.13) H 08/10/20 Unknown D-Dimer 4279.32 ng/mlDDU (0-234) H 08/10/20 08:56 Abnormal lab findings: Abnormal Labs 08/10/20 08/10/20 08/10/20 08:56 08:56 08:56 WBC 17.8 H RBC 5.31 H Hgb 16.0 H Hct 47.5 H Lymph % (Auto) Lymph # (Auto) Seg Neutrophils % Seg Neuts % (Manual) 73.0 H Lymphocytes % (Manual) 4.0 L Monocytes % (Manual) 8.0 H Seg Neutrophils # Man 13.0 H Lymphocytes # (Manual) 0.7 L Monocytes # (Manual) 1.4 H PT INR D-Dimer 4279.32 H Sodium 135 L Chloride 94.4 L BUN 56 H Creatinine 3.2 H Glucose 153 H Lactic Acid Calcium Ferritin C-Reactive Protein 33.80 H Total Protein 5.9 L Albumin 3.3 L Lipase Salicylates Acetaminophen 08/10/20 08/10/20 08/10/20 08:56 08:56 08:56 WBC RBC Hgb Hct Lymph % (Auto) Lymph # (Auto) Seg Neutrophils % Seg Neuts % (Manual) Lymphocytes % (Manual) Monocytes % (Manual) Seg Neutrophils # Man Lymphocytes # (Manual) Monocytes # (Manual) PT INR D-Dimer Sodium Chloride BUN Creatinine Glucose Lactic Acid 4.20 H* Calcium Ferritin 429.8 H C-Reactive Protein Total Protein Albumin Lipase Salicylates < 0.3 L Acetaminophen 08/10/20 08/10/20 08/10/20 08:56 08:56 22:55 WBC RBC Hgb Hct Lymph % (Auto) Lymph # (Auto) Seg Neutrophils % Seg Neuts % (Manual) Lymphocytes % (Manual) Monocytes % (Manual) Seg Neutrophils # Man Lymphocytes # (Manual) Monocytes # (Manual) PT INR D-Dimer Sodium Chloride BUN Creatinine Glucose Lactic Acid 2.70 H* Calcium Ferritin C-Reactive Protein Total Protein Albumin Lipase 9 L Salicylates Acetaminophen 5.0 L 08/10/20 08/10/20 08/11/20 Unknown Unknown 08:17 WBC RBC Hgb Hct Lymph % (Auto) Lymph # (Auto) Seg Neutrophils % Seg Neuts % (Manual) Lymphocytes % (Manual) Monocytes % (Manual) Seg Neutrophils # Man Lymphocytes # (Manual) Monocytes # (Manual) PT 17.6 H INR 1.38 H D-Dimer Sodium 135 L Chloride 97.7 L BUN 65 H Creatinine 1.6 H Glucose 126 H Lactic Acid 4.30 H* Calcium 7.9 L Ferritin C-Reactive Protein Total Protein Albumin Lipase Salicylates Acetaminophen 08/12/20 08/12/20 05:56 05:56 WBC RBC Hgb 11.5 L Hct 33.6 L D Lymph % (Auto) 9.0 L Lymph # (Auto) 0.7 L Seg Neutrophils % 83.8 H Seg Neuts % (Manual) Lymphocytes % (Manual) Monocytes % (Manual) Seg Neutrophils # Man Lymphocytes # (Manual) Monocytes # (Manual) PT INR D-Dimer Sodium Chloride 107.3 H BUN 40 H Creatinine Glucose 108 H Lactic Acid Calcium 8.1 L Ferritin C-Reactive Protein Total Protein Albumin Lipase Salicylates Acetaminophen Allied health notes reviewed: nursing
[2020-08-13] MEDS: KETOROLAC 30 MG/1 ML INJ IV SCH ×4 (00:59→18:21)
[2020-08-13] MEDS: HEPARIN 5,000 UNIT/1 ML VIAL SUB-Q SCH ×2 (05:55→18:22)
[2020-08-13] MEDS: metroNIDAZOLE/NS 500 MG/100 ML 500 MG/100 ML BAG IV SCH ×3 (05:55→22:13)
[2020-08-13 06:24] LABS: Basophils % (Auto) 0.1 % (0.0-1.8); Eosinophils # (Auto) 0.1 K/mm3 (0.0-0.4); Eosinophils % (Auto) 1.5 % (0.0-4.3); Hematocrit 31.9 % (35.5-45.6); Hemoglobin 10.8 gm/dl (11.8-15.2); Lymphocytes # (Auto) 1.1 K/mm3 (1.2-5.4); Lymphocytes % (Auto) 14.8 % (13.4-35.0); Mean Corpuscular HGB Conc 34 % (32-34); Mean Corpuscular Volume 89 fl (84-94); Monocytes # (Auto) 0.6 K/mm3 (0.0-0.8); Monocytes % (Auto) 7.9 % (0.0-7.3); Platelet Count 170 K/mm3 (140-440); Red Blood Count 3.59 M/mm3 (3.65-5.03); Red Cell Distribution Width 14.2 % (13.2-15.2)
[2020-08-13 06:50] LABS: Blood Urea Nitrogen 22 mg/dL (9-20); Calcium 7.7 mg/dL (8.4-10.2); Hemolysis Index 4
[2020-08-13 06:51] LABS: BUN/Creatinine Ratio 37
[2020-08-13] MEDS: PANTOPRAZOLE 40 MG INJ IV SCH (09:36)
[2020-08-13] MEDS: D5W/0.9% NACL 1,000 ML IV SCH ×2 (13:21→22:30)
--- NOTE | 2020-08-13 13:51 | Progress Note ---
Assessment and Plan 45 year old male presented to ED with a history of peptic ulcer disease presented to ER with two day history of worsening abdominal pain, and coffee ground emesis. CT scan shows free air in the upper part of the abdomen. Pt presented tachycardic and hypotensive. General surgery was consulted. Patient has perforated viscous. Patient undergone sigmoidectomy. Patient also developed peritonitis and sepsis. Patient is on Levaquin and metronidazole. Patient alert, awake. denies chest pain, shortness of breath or cough. Patient resting on room air. O2 saturation 97%. Patient has no history of smoking, alcohol or drug abuse. 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 No known drug allergies. Patient afebrile. Blood pressure 124/79. No Leukocytosis Chest xray 08/10/20 reported no acute process. CT scan of chest done on 08/10/20 reported There is mild dependent bilateral atelectasis without other significant abnormalities. Patient is on Metronidazole, Levaquin, S/C Heparin, Protonix. Patients sister at bed side. I spent critical care time of 45 minutes, obtaining history, reviewing the chart, examine the patient, review chest xray, Catscan of chest, lab results, talking to the nursing staff , respiratory therapist and work out plan of treatment in this critically ill patient. - Patient Problems (1) Acute kidney injury (BONY) with acute tubular necrosis (ATN) Current Visit: Yes Status: Acute Plan to address problem: Management as per nephrology. (2) Perforated abdominal viscus Current Visit: Yes Status: Acute Plan to address problem: Patient S/P sigmoidectomy. (3) Peritonitis Current Visit: Yes Status: Acute Plan to address problem: Patient is on Levaquin and Metronidazole. (4) Severe sepsis Current Visit: Yes Status: Acute Plan to address problem: Patient is on Levaquin and metronidazole. Subjective Date of service: 08/13/20 Principal diagnosis: Severe sepsis; Perforated Abd. viscus; Peritonitis; Lactic acidosis Interval history: 45 year old male presented to ED with a history of peptic ulcer disease presented to ER with two day history of worsening abdominal pain, and coffee ground emesis. CT scan shows free air in the upper part of the abdomen. Pt presented tachycardic and hypotensive. General surgery was consulted. Patient has perforated viscous. Patient undergone sigmoidectomy. Patient also developed peritonitis and sepsis. Patient is on Levaquin and metronidazole. Patient alert, awake. denies chest pain, shortness of breath or cough. Patient resting on room air. O2 saturation 97%. Patient has no history of smoking, alcohol or drug abuse. 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 No known drug allergies. Patient afebrile. Blood pressure 124/79. No Leukocytosis Chest xray 08/10/20 reported no acute process. CT scan of chest done on 08/10/20 reported There is mild dependent bilateral atelectasis without other significant abnormalities. Patient is on Metronidazole, Levaquin, S/C Heparin, Protonix. Patients sister at bed side. Objective Vital Signs - 12hr 08/13/20 08/13/20 08/13/20 02:00 03:00 04:00 Temperature 99.2 F Pulse Rate 74 71 Pulse Rate [ 75 From Monitor] Respiratory 13 12 14 Rate Blood Pressure 116/64 134/81 O2 Sat by Pulse 97 95 95 Oximetry 08/13/20 08/13/20 08/13/20 04:01 05:00 06:00 Temperature Pulse Rate 70 75 72 Pulse Rate [ From Monitor] Respiratory 12 12 17 Rate Blood Pressure 117/65 122/76 118/65 O2 Sat by Pulse 97 97 95 Oximetry 08/13/20 08/13/20 08/13/20 07:00 07:54 08:00 Temperature 98.7 F Pulse Rate 69 74 Pulse Rate [ 74 From Monitor] Respiratory 14 14 Rate Blood Pressure 111/62 133/79 O2 Sat by Pulse 96 96 96 Oximetry 08/13/20 08/13/20 08/13/20 09:00 10:00 11:00 Temperature Pulse Rate 69 71 65 Pulse Rate [ From Monitor] Respiratory 14 13 17 Rate Blood Pressure 126/70 112/81 118/75 O2 Sat by Pulse 95 97 97 Oximetry 08/13/20 12:00 Temperature Pulse Rate 72 Pulse Rate [ From Monitor] Respiratory 19 Rate Blood Pressure 129/82 O2 Sat by Pulse 96 Oximetry Constitutional: no acute distress, alert, other (middle aged male with mildly increased respiratory effort at rest) Eyes: non-icteric ENT: oropharynx moist, other (NGT) Neck: supple, no lymphadenopathy, no JVD Effort: mildly labored Ascultation: Bilateral: diminished breath sounds (bases) Percussion: Bilateral: not dull Cardiovascular: regular rate and rhythm Gastrointestinal: normoactive bowel sounds, soft, non-tender, non-distended, oth er (colostomy in place) Integumentary: normal, other (post-op changes) Extremities: no cyanosis, no edema, pink and warm, pulses normal Neurologic: non-focal exam, pupils equal and round, CN II-XII normal, motor strength normal and Psychiatric: anxious CBC and BMP: 08/14/20 04:25 08/14/20 04:25 ABG, PT/INR, D-dimer: PT/INR, D-dimer PT 17.6 Sec. (12.2-14.9) H 08/10/20 Unknown INR 1.38 (0.87-1.13) H 08/10/20 Unknown D-Dimer 4279.32 ng/mlDDU (0-234) H 08/10/20 08:56 Abnormal lab findings: Abnormal Labs 08/10/20 08/10/20 08/10/20 08:56 08:56 08:56 WBC 17.8 H RBC 5.31 H Hgb 16.0 H Hct 47.5 H Lymph % (Auto) [place] % (Auto) Lymph # (Auto) Seg Neutrophils % Seg Neuts % (Manual) 73.0 H Lymphocytes % (Manual) 4.0 L Monocytes % (Manual) 8.0 H Seg Neutrophils # Man 13.0 H Lymphocytes # (Manual) 0.7 L Monocytes # (Manual) 1.4 H PT INR D-Dimer 4279.32 H Sodium 135 L Chloride 94.4 L BUN 56 H Creatinine 3.2 H Glucose 153 H Lactic Acid Calcium Ferritin C-Reactive Protein 33.80 H Total Protein 5.9 L Albumin 3.3 L Lipase Salicylates Acetaminophen 08/10/20 08/10/20 08/10/20 08:56 08:56 08:56 WBC RBC Hgb Hct Lymph % (Auto) [place] % (Auto) Lymph # (Auto) Seg Neutrophils % Seg Neuts % (Manual) Lymphocytes % (Manual) Monocytes % (Manual) Seg Neutrophils # Man Lymphocytes # (Manual) Monocytes # (Manual) PT INR D-Dimer Sodium Chloride BUN Creatinine Glucose Lactic Acid 4.20 H* Calcium Ferritin 429.8 H C-Reactive Protein Total Protein Albumin Lipase Salicylates < 0.3 L Acetaminophen 08/10/20 08/10/20 08/10/20 08:56 08:56 22:55 WBC RBC Hgb Hct Lymph % (Auto) [place] % (Auto) Lymph # (Auto) Seg Neutrophils % Seg Neuts % (Manual) Lymphocytes % (Manual) Monocytes % (Manual) Seg Neutrophils # Man Lymphocytes # (Manual) Monocytes # (Manual) PT INR D-Dimer Sodium Chloride BUN Creatinine Glucose Lactic Acid 2.70 H* Calcium Ferritin C-Reactive Protein Total Protein Albumin Lipase 9 L Salicylates Acetaminophen 5.0 L 08/10/20 08/10/20 08/11/20 Unknown Unknown 08:17 WBC RBC Hgb Hct Lymph % (Auto) [place] % (Auto) Lymph # (Auto) Seg Neutrophils % Seg Neuts % (Manual) Lymphocytes % (Manual) Monocytes % (Manual) Seg Neutrophils # Man Lymphocytes # (Manual) Monocytes # (Manual) PT 17.6 H INR 1.38 H D-Dimer Sodium 135 L Chloride 97.7 L BUN 65 H Creatinine 1.6 H Glucose 126 H Lactic Acid 4.30 H* Calcium 7.9 L Ferritin C-Reactive Protein Total Protein Albumin Lipase Salicylates Acetaminophen 08/12/20 08/12/20 08/13/20 05:56 05:56 05:55 WBC RBC 3.59 L Hgb 11.5 L 10.8 L Hct 33.6 L D 31.9 L Lymph % (Auto) 9.0 L [place] % (Auto) 7.9 H Lymph # (Auto) 0.7 L 1.1 L Seg Neutrophils % 83.8 H 75.7 H Seg Neuts % (Manual) Lymphocytes % (Manual) Monocytes % (Manual) Seg Neutrophils # Man Lymphocytes # (Manual) Monocytes # (Manual) PT INR D-Dimer Sodium Chloride 107.3 H BUN 40 H Creatinine Glucose 108 H Lactic Acid Calcium 8.1 L Ferritin C-Reactive Protein Total Protein Albumin Lipase Salicylates Acetaminophen 08/13/20 05:55 WBC RBC Hgb Hct Lymph % (Auto) [place] % (Auto) Lymph # (Auto) Seg Neutrophils % Seg Neuts % (Manual) Lymphocytes % (Manual) Monocytes % (Manual) Seg Neutrophils # Man Lymphocytes # (Manual) Monocytes # (Manual) PT INR D-Dimer Sodium Chloride BUN 22 H Creatinine 0.6 L Glucose Lactic Acid Calcium 7.7 L Ferritin C-Reactive Protein Total Protein Albumin Lipase Salicylates Acetaminophen Chest x-ray: report reviewed, image reviewed CT scan - chest: report reviewed, image reviewed Additional Studies: CHEST 1 VIEW 08/10/20 INDICATION: Hypoxia, nausea and vomiting COMPARISON: None FINDINGS: Support devices: None Heart: Normal Lungs/Pleura: No acute pulmonary or pleural findings. IMPRESSION: 1. No acute disease. CT CHEST, ABDOMEN, AND PELVIS WITHOUT CONTRAST 08/10/20 INDICATION: Chest and abdominal pain, nausea with vomiting. Onset of symptoms on Thursday. TECHNIQUE: Axial CT images were obtained through the chest, abdomen, and pelvis without contrast. All CT scans at this location are performed using CT dose reduction for ALARA by means of automated exposure control. COMPARISON: None available. FINDINGS: HEART: No significant abnormality. THORACIC AORTA AND ARTERIES: No significant abnormality. MEDIASTINUM and JANE: No mass or lymphadenopathy. The esophagus is fluid-filled and moderately distended. The trachea and main bronchi are patent and normal in caliber. LUNGS: There is mild dependent bilateral atelectasis without other significant abnormalities. PLEURA: No significant pleural effusion. No pneumothorax. LIVER: No significant abnormality. GALLBLADDER: Prior cholecystectomy. BILE DUCTS: No significant abnormality. PANCREAS: No significant abnormality. SPLEEN: No significant abnormality. ADRENALS: No significant abnormality. RIGHT KIDNEY and URETER: No significant abnormality. LEFT KIDNEY and URETER: No significant abnormality. STOMACH and SMALL BOWEL: The stomach is fluid-filled and markedly distended. There is moderate generalized small bowel dilatation with mild thickening of multiple small bowel loops as well as mild to moderate surrounding inflammation. There is a questionable abscess versus conglomerate loops of small bowel seen along the pelvis posterior to the bladder on image 263 of series 2 measuring approximately 6.4 x 5.0 cm. No other significant abnormality. COLON: No significant abnormality. APPENDIX: No significant abnormality. PERITONEUM: Trace free fluid is seen along the liver and spleen. A moderate amount of free air is present, mainly along the upper abdomen. Questional abscess in the pelvis as described above. No other organized fluid collection is seen. LYMPH NODES: No significant adenopathy. ABDOMINAL AORTA and ARTERIES: No significant abnormality. IVC and VEINS: No significant abnormality. URINARY BLADDER: No significant abnormality. REPRODUCTIVE ORGANS: No significant abnormality. ADDITIONAL FINDINGS: None. BONES: No significant abnormality. IMPRESSION: 1. CT evidence of gastroenteritis complicated by bowel perforation with a pe lvic abscess versus conglomerate loops of small bowel as described above. 2. Additional findings as above. Allied health notes reviewed: nursing
--- NOTE | 2020-08-13 17:15 | Progress Note ---
Assessment and Plan POD#3 s/p sigmoidectomy with hartmans pouch for sigmoid perforation. Afebrile and stable. Pt has post op ileus will await return of bowel function and continue NGT decompression. Will close eye on colostomy stoma. Hopefully dark color is due to congestion and will resolve. Pt is cleared to go to surgical floor from surgery perspective. Subjective Date of service: 08/13/20 Narrative: no acute events overnight. Pt denies pain or nausea. Objective Vital Signs - 12hr 08/13/20 08/13/20 08/13/20 06:00 07:00 07:54 Temperature Pulse Rate 72 69 Pulse Rate [ From Monitor] Respiratory 17 14 Rate Blood Pressure 118/65 111/62 O2 Sat by Pulse 95 96 96 Oximetry 08/13/20 08/13/20 08/13/20 08:00 09:00 10:00 Temperature 98.7 F Pulse Rate 74 69 71 Pulse Rate [ 74 From Monitor] Respiratory 14 14 13 Rate Blood Pressure 133/79 126/70 112/81 O2 Sat by Pulse 96 95 97 Oximetry 08/13/20 08/13/20 08/13/20 11:00 12:00 13:01 Temperature Pulse Rate 65 72 78 Pulse Rate [ From Monitor] Respiratory 17 19 12 Rate Blood Pressure 118/75 129/82 135/88 O2 Sat by Pulse 97 96 97 Oximetry 08/13/20 08/13/20 14:00 16:00 Temperature 98.2 F Pulse Rate 68 Pulse Rate [ From Monitor] Respiratory 18 Rate Blood Pressure 125/77 O2 Sat by Pulse 95 Oximetry - General physical appearance well developed, well nourished, no distress, no pain - Respiratory normal expansion, normal respiratory effort - Abdomen soft, other (incision c/d/i, appropriately tender to palpation, ostomy purple at surface. pink at the level of skin and more proximal. Air in the ostomy bag. NGT bilious) - Labs 08/13/20 05:55 08/13/20 05:55 Diabetes panel 08/13/20 Range/Units 05:55 Sodium 139 (137-145) mmol/L Potassium 3.9 (3.6-5.0) mmol/L Chloride 106.7 (98-107) mmol/L Carbon Dioxide 25 (22-30) mmol/L BUN 22 H (9-20) mg/dL Creatinine 0.6 L (0.8-1.3) mg/dL Glucose 98 (75-100) mg/dL Calcium 7.7 L (8.4-10.2) mg/dL Calcium panel 08/13/20 Range/Units 05:55 Calcium 7.7 L (8.4-10.2) mg/dL Pituitary panel 08/13/20 Range/Units 05:55 Sodium 139 (137-145) mmol/L Potassium 3.9 (3.6-5.0) mmol/L Chloride 106.7 (98-107) mmol/L Carbon Dioxide 25 (22-30) mmol/L BUN 22 H (9-20) mg/dL Creatinine 0.6 L (0.8-1.3) mg/dL Glucose 98 (75-100) mg/dL Calcium 7.7 L (8.4-10.2) mg/dL Adrenal panel 08/13/20 Range/Units 05:55 Sodium 139 (137-145) mmol/L Potassium 3.9 (3.6-5.0) mmol/L Chloride 106.7 (98-107) mmol/L Carbon Dioxide 25 (22-30) mmol/L BUN 22 H (9-20) mg/dL Creatinine 0.6 L (0.8-1.3) mg/dL Glucose 98 (75-100) mg/dL Calcium 7.7 L (8.4-10.2) mg/dL
--- NOTE | 2020-08-13 18:17 | Progress Note ---
Assessment and Plan 45 year old male presented to ED with a history of peptic ulcer disease presented to ER with two day history of worsening abdominal pain, and coffee ground emesis. CT scan shows free air in the upper part of the abdomen. Pt presented tachycardic and hypotensive. General surgery was consulted in ED. A/P -- Perforated viscus Surgical team consulted in ED, s/p sigmoidectomy with hartmans pouch for sigmoid perforation on 08/10/20. Patient currently n.p.o., continue IV fluid hydration Post op care per general surgeon -- Sepsis likely due to perforated viscus Continue empiric antibiotics, follow culture, IV fluid -- Acute kidney injury (BONY) with acute tubular necrosis (ATN) Likely due to sepsis Continue IV fluid resuscitation therapy, monitor urine output every shift, repeat BMP in a.m. to monitor serum creatinine as well as GFR. -- Metabolic acidosis IV fluid resuscitation therapy, serial lactic acid level, supportive care. --Postoperative ileus Continue n.p.o. status, continue IV fluid, serial abdominal examination, abdominal x-ray in the am --History of peptic ulcer disease, continue Protonix --DVT prophylaxis SCD to bilateral lower extremities while in bed, heparin Daily clinical Course: 08/11/20: POD#1 s/p sigmoidectomy with hartmans pouch for sigmoid perforation. Afebrile and stable. Pt has post op ileus will await return of bowel function and continue NGT decompression. 08/12/20: POD#2 Remains Afebrile and stable. Pt has post op ileus and continue N GT decompression. Keep NPO, cont iv fluid 08/13/20; POD#2 Remains Afebrile and stable. Pt has post op ileus and continue NGT decompression. Keep NPO, cont iv fluid. Transfer to surgical unit. Subjective Date of service: 08/13/20 Principal diagnosis: Severe sepsis; Perforated Abd. viscus; Peritonitis; Lactic acidosis Interval history: Patient seen and examined. Medical records and medication list reviewed. No acute event overnight noted by the RN. s/p sigmoidectomy with hartmans pouch for sigmoid perforation. Patient remains n.p.o. with NG suction Discussed plan of care at bedside with patient. Objective - Exam Narrative Exam: GENERAL: well-developed and well-nourished male lying on bed appeared to be in no discomfort. HEENT: Normocephalic. Atraumatic. No conjunctival congestion or icterus. Patient has moist mucous membranes. NECK: Supple. Trachea midline. CHEST/LUNGS: Clear to auscultated bilaterally, breathing nonlabored. No wheezes crackles or rhonchi. HEART/CARDIOVASCULAR: Regular in rate and rhythm. S1 and S2 positive. ABDOMEN: Abdomen is soft, colostomy bag in place SKIN: There is no rash. Warm and dry. NEURO: No focal motor deficit. Follows command. MUSCULOSKELETAL: No joint effusion or tenderness. EXTRIMITY: No edema, no cyanosis or clubbing. PSYCH: Cooperative. - Constitutional Vitals: Vital Signs - 12hr 08/13/20 08/13/20 08/13/20 07:00 07:54 08:00 Temperature 98.7 F Pulse Rate 69 74 Pulse Rate [ 74 From Monitor] Respiratory 14 14 Rate Blood Pressure 111/62 133/79 O2 Sat by Pulse 96 96 96 Oximetry 08/13/20 08/13/20 08/13/20 09:00 10:00 11:00 Temperature Pulse Rate 69 71 65 Pulse Rate [ From Monitor] Respiratory 14 13 17 Rate Blood Pressure 126/70 112/81 118/75 O2 Sat by Pulse 95 97 97 Oximetry 08/13/20 08/13/20 08/13/20 12:00 13:01 14:00 Temperature Pulse Rate 72 78 68 Pulse Rate [ From Monitor] Respiratory 19 12 18 Rate Blood Pressure 129/82 135/88 125/77 O2 Sat by Pulse 96 97 95 Oximetry 08/13/20 16:00 Temperature 98.2 F Pulse Rate Pulse Rate [ From Monitor] Respiratory Rate Blood Pressure O2 Sat by Pulse Oximetry - Labs CBC & Chem 7: 08/13/20 05:55 08/13/20 05:55 Labs: Abnormal lab results 08/13/20 08/13/20 Range/Units 05:55 05:55 RBC 3.59 L (3.65-5.03) M/mm3 Hgb 10.8 L (11.8-15.2) gm/dl Hct 31.9 L (35.5-45.6) % [place] % (Auto) 7.9 H (0.0-7.3) % Lymph # (Auto) 1.1 L (1.2-5.4) K/mm3 Seg Neutrophils % 75.7 H (40.0-70.0) % BUN 22 H (9-20) mg/dL Creatinine 0.6 L (0.8-1.3) mg/dL Calcium 7.7 L (8.4-10.2) mg/dL HEART Score - HEART Score Troponin: Troponin T < 0.010 ng/mL (0.00-0.029) 08/10/20 08:56
[2020-08-14] MEDS: KETOROLAC 30 MG/1 ML INJ IV SCH ×4 (04:29→17:34)
[2020-08-14 04:58] LABS: Hematocrit 34.2 % (35.5-45.6); Hemoglobin 11.6 gm/dl (11.8-15.2); Mean Corpuscular HGB Conc 34 % (32-34); Mean Corpuscular Volume 88 fl (84-94); Platelet Count 212 K/mm3 (140-440); Red Blood Count 3.87 M/mm3 (3.65-5.03); Red Cell Distribution Width 14.2 % (13.2-15.2)
[2020-08-14 05:10] LABS: Blood Urea Nitrogen 20 mg/dL (9-20); Hemolysis Index 3
[2020-08-14 05:11] LABS: BUN/Creatinine Ratio 33
[2020-08-14] MEDS: metroNIDAZOLE/NS 500 MG/100 ML 500 MG/100 ML BAG IV SCH ×3 (05:30→22:08)
[2020-08-14] MEDS: HEPARIN 5,000 UNIT/1 ML VIAL SUB-Q SCH ×2 (06:00→17:35)
[2020-08-14 06:03] LABS: Band Neutrophils # (Manual) 0.1 K/mm3; Total Cells Counted 100
[2020-08-14 06:04] LABS: Platelet Estimate Consistent w Auto; RBC Morphology Normal
--- NOTE | 2020-08-14 08:22 | Progress Note ---
Assessment and Plan Assessment and plan: 45 year old male presented to ED with a history of peptic ulcer disease presented to ER with two day history of worsening abdominal pain, and coffee ground emesis. CT scan shows free air in the upper part of the abdomen. Pt presented tachycardic and hypotensive. General surgery was consulted in ED. A/P -- Perforated viscus Surgical team consulted in ED, s/p sigmoidectomy with hartmans pouch for sigmoid perforation on 08/10/20. Patient currently n.p.o., continue IV fluid hydration Post op care per general surgeon -- Sepsis likely due to perforated viscus Continue empiric antibiotics, follow culture, IV fluid -- Acute kidney injury (BONY) with acute tubular necrosis (ATN) Likely due to sepsis Continue IV fluid resuscitation therapy, monitor urine output every shift, repeat BMP in a.m. to monitor serum creatinine as well as GFR. -- Metabolic acidosis IV fluid resuscitation therapy, serial lactic acid level, supportive care. --Postoperative ileus Continue n.p.o. status, continue IV fluid, serial abdominal examination, abdominal x-ray in the am --History of peptic ulcer disease, continue Protonix --DVT prophylaxis SCD to bilateral lower extremities while in bed, heparin Daily clinical Course: 08/11/20: POD#1 s/p sigmoidectomy with hartmans pouch for sigmoid perforation. Afebrile and stable. Pt has post op ileus will await return of bowel function and continue NGT decompression. 08/12/20: POD#2 Remains Afebrile and stable. Pt has post op ileus and continue NGT decompression. Keep NPO, cont iv fluid 08/13/20; POD#2 Remains Afebrile and stable. Pt has post op ileus and continue NGT decompression. Keep NPO, cont iv fluid. Transfer to surgical unit. 08/14/2020; postop day 3. Patient afebrile, stable. Patient has postop ileus and no bowel movement, continue with NG tube decompression. Continue with IV fluids. Surgery is following. History Interval history: Patient was seen and evaluated this morning Patient denied any pain, patient did not have any bowel movement Patient is on NG tube decompression Hospitalist Physical - Physical exam Narrative exam: Not in cardiopulmonary distress. The patient appeared well nourished and normally developed. Vital signs as documented. Head exam is unremarkable. No scleral icterus . Neck is without jugular venous distension, thyromegaly, or carotid bruits. Lungs are clear to auscultation. Cardiac exam reveals regular rate and Rhythm. Abdominal exam reveals colostomy, clean midline surgical dressing. Extremities are nonedematous and both femoral and pedal pulses are normal. 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 No focal weakness. - Constitutional Vitals: Temp Pulse Resp BP Pulse Ox 98.3 F 67 16 124/79 97 08/14/20 07:08 08/14/20 07:08 08/14/20 07:08 08/14/20 07:08 08/14/20 07:08 HEART Score - HEART Score Troponin: Troponin T < 0.010 ng/mL (0.00-0.029) 08/10/20 08:56 Results - Labs CBC & Chem 7: 08/14/20 04:25 08/14/20 04:25 Labs: Laboratory Last Values WBC 8.6 K/mm3 (4.5-11.0) 08/14/20 04:25 RBC 3.87 M/mm3 (3.65-5.03) 08/14/20 04:25 Hgb 11.6 gm/dl (11.8-15.2) L 08/14/20 04:25 Hct 34.2 % (35.5-45.6) L 08/14/20 04:25 MCV 88 fl (84-94) 08/14/20 04:25 MCH 30 pg (28-32) 08/14/20 04:25 MCHC 34 % (32-34) 08/14/20 04:25 RDW 14.2 % (13.2-15.2) 08/14/20 04:25 Plt Count 212 K/mm3 (140-440) 08/14/20 04:25 Lymph % (Auto) 14.8 % (13.4-35.0) 08/13/20 05:55 [place] % (Auto) 7.9 % (0.0-7.3) H 08/13/20 05:55 Eos % (Auto) 1.5 % (0.0-4.3) 08/13/20 05:55 Baso % (Auto) 0.1 % (0.0-1.8) 08/13/20 05:55 Lymph # (Auto) 1.1 K/mm3 (1.2-5.4) L 08/13/20 05:55 [place] # (Auto) 0.6 K/mm3 (0.0-0.8) 08/13/20 05:55 Eos # (Auto) 0.1 K/mm3 (0.0-0.4) 08/13/20 05:55 Baso # (Auto) 0.0 K/mm3 (0.0-0.1) 08/13/20 05:55 Add Manual Diff Complete 08/14/20 04:25 Total Counted 100 08/14/20 04:25 Seg Neutrophils % 75.7 % (40.0-70.0) H 08/13/20 05:55 Seg Neuts % (Manual) 84.0 % (40.0-70.0) H 08/14/20 04:25 Band Neutrophils % 1.0 % 08/14/20 04:25 Lymphocytes % (Manual) 8.0 % (13.4-35.0) L 08/14/20 04:25 Monocytes % (Manual) 5.0 % (0.0-7.3) 08/14/20 04:25 Eosinophils % (Manual) 2.0 % (0.0-4.3) 08/14/20 04:25 Metamyelocytes % 1.0 % 08/10/20 08:56 Nucleated RBC % Not Reportable 08/14/20 04:25 Seg Neutrophils # 5.6 K/mm3 (1.8-7.7) 08/13/20 05:55 Seg Neutrophils # Man 7.2 K/mm3 (1.8-7.7) 08/14/20 04:25 Band Neutrophils # 0.1 K/mm3 08/14/20 04:25 Lymphocytes # (Manual) 0.7 K/mm3 (1.2-5.4) L 08/14/20 04:25 Abs React Lymphs (Man) 0.0 K/mm3 08/14/20 04:25 Monocytes # (Manual) 0.4 K/mm3 (0.0-0.8) 08/14/20 04:25 Eosinophils # (Manual) 0.2 K/mm3 (0.0-0.4) 08/14/20 04:25 Basophils # (Manual) 0.0 K/mm3 (0.0-0.1) 08/14/20 04:25 Metamyelocytes # 0.0 K/mm3 08/14/20 04:25 Myelocytes # 0.0 K/mm3 08/14/20 04:25 Promyelocytes # 0.0 K/mm3 08/14/20 04:25 Blast Cells # 0.0 K/mm3 08/14/20 04:25 WBC Morphology Not Reportable 08/14/20 04:25 Hypersegmented Neuts Not Reportable 08/14/20 04:25 Hyposegmented Neuts Not Reportable 08/14/20 04:25 Hypogranular Neuts Not Reportable 08/14/20 04:25 Smudge Cells Not Reportable 08/14/20 04:25 Toxic Granulation Not Reportable 08/14/20 04:25 Toxic Vacuolation Not Reportable 08/14/20 04:25 Dohle Bodies Not Reportable 08/14/20 04:25 Pelger-Huet Anomaly Not Reportable 08/14/20 04:25 Amrit Rods Not Reportable 08/14/20 04:25 Platelet Estimate Consistent w auto 08/14/20 04:25 Clumped Platelets Not Reportable 08/14/20 04:25 Plt Clumps, EDTA Not Reportable 08/14/20 04:25 Large Platelets Not Reportable 08/14/20 04:25 Giant Platelets Not Reportable 08/14/20 04:25 Platelet Satelliting Not Reportable 08/14/20 04:25 Plt Morphology Comment Not Reportable 08/14/20 04:25 RBC Morphology Normal 08/14/20 04:25 Dimorphic RBCs Not Reportable 08/14/20 04:25 Polychromasia Not Reportable 08/14/20 04:25 Hypochromasia Not Reportable 08/14/20 04:25 Poikilocytosis Not Reportable 08/14/20 04:25 Anisocytosis Not Reportable 08/14/20 04:25 Microcytosis Not Reportable 08/14/20 04:25 Macrocytosis Not Reportable 08/14/20 04:25 Spherocytes Not Reportable 08/14/20 04:25 Pappenheimer Bodies Not Reportable 08/14/20 04:25 Sickle Cells Not Reportable 08/14/20 04:25 Target Cells Not Reportable 08/14/20 04:25 Tear Drop Cells Not Reportable 08/14/20 04:25 Ovalocytes Not Reportable 08/14/20 04:25 Helmet Cells Not Reportable 08/14/20 04:25 [place] Bodies Not Reportable 08/14/20 04:25 [place] Rings Not Reportable 08/14/20 04:25 Anita Cells Not Reportable 08/14/20 04:25 Bite Cells Not Reportable 08/14/20 04:25 Crenated Cell Not Reportable 08/14/20 04:25 Elliptocytes Not Reportable 08/14/20 04:25 Acanthocytes (Spur) Not Reportable 08/14/20 04:25 Rouleaux Not Reportable 08/14/20 04:25 Hemoglobin C Crystals Not Reportable 08/14/20 04:25 Schistocytes Not Reportable 08/14/20 04:25 Malaria parasites Not Reportable 08/14/20 04:25 [place] Bodies Not Reportable 08/14/20 04:25 Hem Pathologist Commnt No 08/14/20 04:25 PT 17.6 Sec. (12.2-14.9) H 08/10/20 Unknown INR 1.38 (0.87-1.13) H 08/10/20 Unknown APTT 33.0 Sec. (24.2-36.6) 08/10/20 08:56 D-Dimer 4279.32 ng/mlDDU (0-234) H 08/10/20 08:56 Sodium 136 mmol/L (137-145) L 08/14/20 04:25 Potassium 3.8 mmol/L (3.6-5.0) 08/14/20 04:25 Chloride 102.9 mmol/L (98-107) 08/14/20 04:25 Carbon Dioxide 24 mmol/L (22-30) 08/14/20 04:25 Anion Gap 13 mmol/L 08/14/20 04:25 BUN 20 mg/dL (9-20) 08/14/20 04:25 Creatinine 0.6 mg/dL (0.8-1.3) L 08/14/20 04:25 Estimated GFR > 60 ml/min 08/14/20 04:25 BUN/Creatinine Ratio 33 % 08/14/20 04:25 Glucose 103 mg/dL (75-100) H 08/14/20 04:25 Lactic Acid 1.70 mmol/L (0.7-2.0) 08/11/20 06:31 Calcium 8.0 mg/dL (8.4-10.2) L 08/14/20 04:25 Ferritin 429.8 ng/mL (30.0-300.0) H 08/10/20 08:56 Total Bilirubin 0.70 mg/dL (0.1-1.2) 08/10/20 08:56 AST 13 units/L (5-40) 08/10/20 08:56 ALT 11 units/L (7-56) 08/10/20 08:56 Alkaline Phosphatase 39 units/L (35-129) 08/10/20 08:56 Lactate Dehydrogenase 160 units/L (91-180) 08/10/20 08:56 Troponin T < 0.010 ng/mL (0.00-0.029) 08/10/20 08:56 C-Reactive Protein 33.80 mg/dL (0.00-1.30) H 08/10/20 08:56 Total Protein 5.9 g/dL (6.3-8.2) L 08/10/20 08:56 Albumin 3.3 g/dL (3.9-5) L 08/10/20 08:56 Albumin/Globulin Ratio 1.3 % 08/10/20 08:56 Lipase 9 units/L (13-60) L 08/10/20 08:56 Procalcitonin > 200.00 ng/mL (<0.15) 08/10/20 08:56 TSH 3.870 mlU/mL (0.270-4.200) 08/10/20 08:56 Urine Color Yellow (Yellow) 08/10/20 17:39 Urine Turbidity Clear (Clear) 08/10/20 17:39 Urine pH 5.0 (5.0-7.0) 08/10/20 17:39 Ur Specific [place] 1.020 (1.003-1.030) 08/10/20 17:39 Urine Protein <15 mg/dl mg/dL (Negative) 08/10/20 17:39 Urine Glucose (UA) Neg mg/dL (Negative) 08/10/20 17:39 Urine Ketones Neg mg/dL (Negative) 08/10/20 17:39 Urine Blood Sm (Negative) 08/10/20 17:39 Urine Nitrite Neg (Negative) 08/10/20 17:39 Urine Bilirubin Neg (Negative) 08/10/20 17:39 Urine Urobilinogen < 2.0 mg/dL (<2.0) 08/10/20 17:39 Ur Leukocyte Esterase Neg (Negative) 08/10/20 17:39 Urine WBC (Auto) 2.0 /HPF (0.0-6.0) 08/10/20 17:39 Urine RBC (Auto) 2.0 /HPF (0.0-6.0) 08/10/20 17:39 U Epithel Cells (Auto) < 1.0 /HPF (0-13.0) 08/10/20 17:39 Urine Mucus Few /HPF 08/10/20 17:39 Salicylates < 0.3 mg/dL (2.8-20.0) L 08/10/20 08:56 Acetaminophen 5.0 ug/mL (10.0-30.0) L 08/10/20 08:56 Plasma/Serum Alcohol < 0.01 % (0-0.07) 08/10/20 08:56 Coronavirus (PCR) Negative (Negative) 08/10/20 08:19 Blood Type O POSITIVE 08/10/20 08:56 Antibody Screen Negative 08/10/20 08:56 Microbiology: Microbiology 08/10/20 08:56 Peripheral/Venous Blood Culture - Preliminary NO GROWTH AFTER 72 HOURS 08/10/20 08:56 Peripheral/Venous Blood Culture - Preliminary NO GROWTH AFTER 72 HOURS Herrmann/IV: Voiding Method Condom Catheter Active Medications - Current Medications Current Medications: Generic Name Dose Route Start Last Admin Trade Name Freq PRN Reason Stop Dose Admin Albuterol 2.5 mg 08/10/20 11:01 Albuterol 2.5 Mg/3 Ml Nebu IH Q3HRT PRN Shortness Of Breath Heparin Sodium (Porcine) 5,000 unit 08/11/20 18:00 08/13/20 18:22 Heparin 5,000 Unit/1 Ml Vial SUB-Q 5,000 unit Q12H DARYA Administration Hydromorphone HCl 0.5 mg 08/10/20 16:20 Hydromorphone 1 Mg/1 Ml Inj IV Q3H PRN Pain , Severe (7-10) Metronidazole 500 mg in 100 mls @ 100 mls/hr 08/10/20 14:00 08/14/20 05:30 Flagyl 500 Mg/100 Ml IV 100 mls/hr Q8HR DARYA Administration Protocol Dextrose/Sodium Chloride 1,000 mls @ 75 mls/hr 08/11/20 10:00 08/13/20 22:30 D5ns IV 75 mls/hr DIRECT DARYA Administration Levofloxacin/Dextrose 750 mg in 150 mls @ 100 mls/hr 08/12/20 18:00 08/13/20 18:22 Levaquin 750mg/150ml IV 100 mls/hr Q24H DARYA Administration Ketorolac Tromethamine 15 mg 08/10/20 18:00 08/14/20 05:29 Ketorolac 30 Mg/1 Ml Inj IV 08/15/20 17:59 15 mg Q6HR DARYA Administration Pantoprazole Sodium 40 mg 08/12/20 10:00 08/13/20 09:36 Pantoprazole 40 Mg Inj IV 40 mg QDAY DARYA Administration Sodium Chloride 10 ml 08/10/20 22:00 08/13/20 22:29 Sodium Chloride 0.9% 10 Ml Flush Syringe IV 10 ml BID DARYA Administration Sodium Chloride 10 ml 08/10/20 11:01 Sodium Chloride 0.9% 10 Ml Flush Syringe IV PRN PRN LINE FLUSH
[2020-08-14] MEDS: PANTOPRAZOLE 40 MG INJ IV SCH (11:24)
[2020-08-14] MEDS: D5W/0.9% NACL 1,000 ML IV SCH (11:25)
--- NOTE | 2020-08-14 12:21 | Progress Note ---
Assessment and Plan 45 year old male presented to ED with a history of peptic ulcer disease presented to ER with two day history of worsening abdominal pain, and coffee ground emesis. CT scan shows free air in the upper part of the abdomen. Pt presented tachycardic and hypotensive. General surgery was consulted. Patient has perforated viscous. Patient undergone sigmoidectomy. Patient also developed peritonitis and sepsis. Patient is on Levaquin and metronidazole. Patient alert, awake. denies chest pain, shortness of breath or cough. Patient resting on room air. O2 saturation 97%. Patient has no history of smoking, alcohol or drug abuse. 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 No known drug allergies. Patient transfered to surgical floor. Patient sleeping on room air. No acute respiratory distress. O2 saturation 96%. Patient afebrile. Blood pressure 112/74. No Leukocytosis Chest xray 08/10/20 reported no acute process. CT scan of chest done 08/10/20 reported HEART: No significant abnormality. THORACIC AORTA AND ARTERIES: No significant abnormality. MEDIASTINUM and JANE: No mass or lymphadenopathy. The esophagus is fluid-filled and moderately distended. The trachea and main bronchi are patent and normal in caliber. LUNGS: There is mild dependent bilateral atelectasis without other significant abnormalities. PLEURA: No significant pleural effusion. No pneumothorax - Patient Problems (1) Acute kidney injury (BONY) with acute tubular necrosis (ATN) Current Visit: Yes Status: Acute Plan to address problem: Management as per nephrology. (2) Perforated abdominal viscus Current Visit: Yes Status: Acute Plan to address problem: Patient S/P sigmoidectomy. (3) Peritonitis Current Visit: Yes Status: Acute Plan to address problem: Patient is on Levaquin and Metronidazole. (4) Severe sepsis Current Visit: Yes Status: Acute Plan to address problem: Patient is on Levaquin and metronidazole. Subjective Date of service: 08/14/20 Principal diagnosis: Severe sepsis; Perforated Abd. viscus; Peritonitis; Lactic acidosis Interval history: 45 year old male presented to ED with a history of peptic ulcer disease presented to ER with two day history of worsening abdominal pain, and coffee ground emesis. CT scan shows free air in the upper part of the abdomen. Pt presented tachycardic and hypotensive. General surgery was consulted. Patient has perforated viscous. Patient undergone sigmoidectomy. Patient also developed peritonitis and sepsis. Patient is on Levaquin and metronidazole. Patient alert, awake. denies chest pain, shortness of breath or cough. Patient resting on room air. O2 saturation 97%. Patient has no history of smoking, alcohol or drug abuse. 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 No known drug allergies. Patient transfered to surgical floor. Patient sleeping on room air. No acute respiratory distress. O2 saturation 96%. Patient afebrile. Blood pressure 112/74. No Leukocytosis Chest xray 08/10/20 reported no acute process. CT scan of chest done 08/10/20 reported HEART: No significant abnormality. THORACIC AORTA AND ARTERIES: No significant abnormality. MEDIASTINUM and JANE: No mass or lymphadenopathy. The esophagus is fluid-filled and moderately distended. The trachea and main bronchi are patent and normal in caliber. LUNGS: There is mild dependent bilateral atelectasis without other significant abnormalities. PLEURA: No significant pleural effusion. No pneumothorax Objective Vital Signs - 12hr 08/14/20 08/14/20 08/14/20 04:29 04:44 05:29 Temperature 97.9 F Pulse Rate 67 Respiratory 17 18 17 Rate Blood Pressure Blood Pressure 117/76 [Left] O2 Sat by Pulse 97 Oximetry 08/14/20 08/14/20 08/14/20 05:59 07:08 09:36 Temperature 98.3 F Pulse Rate 67 Respiratory 17 16 Rate Blood Pressure 124/79 Blood Pressure [Left] O2 Sat by Pulse 97 97 Oximetry Constitutional: no acute distress, asleep Eyes: non-icteric ENT: oropharynx moist, other (NGT) Neck: supple, no lymphadenopathy, no JVD Effort: mildly labored Ascultation: Bilateral: diminished breath sounds (bases) Percussion: Bilateral: not dull Cardiovascular: regular rate and rhythm Gastrointestinal: normoactive bowel sounds, soft, non-tender, non-distended, other (colostomy in place) Integumentary: normal, other (post-op changes) Extremities: no cyanosis, no edema, pink and warm, pulses normal Neurologic: non-focal exam, pupils equal and round, CN II-XII normal, motor strength normal and Psychiatric: other (Sleeping at this time.) CBC and BMP: 08/14/20 04:25 08/14/20 04:25 ABG, PT/INR, D-dimer: PT/INR, D-dimer PT 17.6 Sec. (12.2-14.9) H 08/10/20 Unknown INR 1.38 (0.87-1.13) H 08/10/20 Unknown D-Dimer 4279.32 ng/mlDDU (0-234) H 08/10/20 08:56 Abnormal lab findings: Abnormal Labs 08/10/20 08/10/20 08/10/20 08:56 08:56 08:56 WBC 17.8 H RBC 5.31 H Hgb 16.0 H Hct 47.5 H Lymph % (Auto) [place] % (Auto) Lymph # (Auto) Seg Neutrophils % Seg Neuts % (Manual) 73.0 H Lymphocytes % (Manual) 4.0 L Monocytes % (Manual) 8.0 H Seg Neutrophils # Man 13.0 H Lymphocytes # (Manual) 0.7 L Monocytes # (Manual) 1.4 H PT INR D-Dimer 4279.32 H Sodium 135 L Chloride 94.4 L BUN 56 H Creatinine 3.2 H Glucose 153 H Lactic Acid Calcium Ferritin C-Reactive Protein 33.80 H Total Protein 5.9 L Albumin 3.3 L Lipase Salicylates Acetaminophen 08/10/20 08/10/20 08/10/20 08:56 08:56 08:56 WBC RBC Hgb Hct Lymph % (Auto) [place] % (Auto) Lymph # (Auto) Seg Neutrophils % Seg Neuts % (Manual) Lymphocytes % (Manual) Monocytes % (Manual) Seg Neutrophils # Man Lymphocytes # (Manual) Monocytes # (Manual) PT INR D-Dimer Sodium Chloride BUN Creatinine Glucose Lactic Acid 4.20 H* Calcium Ferritin 429.8 H C-Reactive Protein Total Protein Albumin Lipase Salicylates < 0.3 L Acetaminophen 08/10/20 08/10/20 08/10/20 08:56 08:56 22:55 WBC RBC Hgb Hct Lymph % (Auto) [place] % (Auto) Lymph # (Auto) Seg Neutrophils % Seg Neuts % (Manual) Lymphocytes % (Manual) Monocytes % (Manual) Seg Neutrophils # Man Lymphocytes # (Manual) Monocytes # (Manual) PT INR D-Dimer Sodium Chloride BUN Creatinine Glucose Lactic Acid 2.70 H* Calcium Ferritin C-Reactive Protein Total Protein Albumin Lipase 9 L Salicylates Acetaminophen 5.0 L 08/10/20 08/10/2021 Unknown Unknown 08:17 WBC RBC Hgb Hct Lymph % (Auto) [place] % (Auto) Lymph # (Auto) Seg Neutrophils % Seg Neuts % (Manual) Lymphocytes % (Manual) Monocytes % (Manual) Seg Neutrophils # Man Lymphocytes # (Manual) Monocytes # (Manual) PT 17.6 H INR 1.38 H D-Dimer Sodium 135 L Chloride 97.7 L BUN 65 H Creatinine 1.6 H Glucose 126 H Lactic Acid 4.30 H* Calcium 7.9 L Ferritin C-Reactive Protein Total Protein Albumin Lipase Salicylates Acetaminophen 08/12/20 08/12/20 08/13/20 05:56 05:56 05:55 WBC RBC 3.59 L Hgb 11.5 L 10.8 L Hct 33.6 L D 31.9 L Lymph % (Auto) 9.0 L [place] % (Auto) 7.9 H Lymph # (Auto) 0.7 L 1.1 L Seg Neutrophils % 83.8 H 75.7 H Seg Neuts % (Manual) Lymphocytes % (Manual) Monocytes % (Manual) Seg Neutrophils # Man Lymphocytes # (Manual) Monocytes # (Manual) PT INR D-Dimer Sodium Chloride 107.3 H BUN 40 H Creatinine Glucose 108 H Lactic Acid Calcium 8.1 L Ferritin C-Reactive Protein Total Protein Albumin Lipase Salicylates Acetaminophen 08/13/20 08/14/20 08/14/20 05:55 04:25 04:25 WBC RBC Hgb 11.6 L Hct 34.2 L Lymph % (Auto) [place] % (Auto) Lymph # (Auto) Seg Neutrophils % Seg Neuts % (Manual) 84.0 H Lymphocytes % (Manual) 8.0 L Monocytes % (Manual) Seg Neutrophils # Man Lymphocytes # (Manual) 0.7 L Monocytes # (Manual) PT INR D-Dimer Sodium 136 L Chloride BUN 22 H Creatinine 0.6 L 0.6 L Glucose 103 H Lactic Acid Calcium 7.7 L 8.0 L Ferritin C-Reactive Protein Total Protein Albumin Lipase Salicylates Acetaminophen CT scan - chest: report reviewed, image reviewed Additional Studies: CT CHEST, ABDOMEN, AND PELVIS WITHOUT CONTRAST 08/10/20 INDICATION: Chest and abdominal pain, nausea with vomiting. Onset of symptoms on Thursday. TECHNIQUE: Axial CT images were obtained through the chest, abdomen, and pelvis without contrast. All CT scans at this location are performed using CT dose reduction for ALARA by means of automated exposure control. COMPARISON: None available. FINDINGS: HEART: No significant abnormality. THORACIC AORTA AND ARTERIES: No significant abnormality. MEDIASTINUM and JANE: No mass or lymphadenopathy. The esophagus is fluid-filled and moderately distended. The trachea and main bronchi are patent and normal in caliber. LUNGS: There is mild dependent bilateral atelectasis without other significant abnormalities. PLEURA: No significant pleural effusion. No pneumothorax. LIVER: No significant abnormality. GALLBLADDER: Prior cholecystectomy. BILE DUCTS: No significant abnormality. PANCREAS: No significant abnormality. SPLEEN: No significant abnormality. ADRENALS: No significant abnormality. RIGHT KIDNEY and URETER: No significant abnormality. LEFT KIDNEY and URETER: No significant abnormality. STOMACH and SMALL BOWEL: The stomach is fluid-filled and markedly distended. There is moderate generalized small bowel dilatation with mild thickening of multiple small bowel loops as well as mild to moderate surrounding inflammation. There is a questionable abscess versus conglomerate loops of small bowel seen along the pelvis posterior to the bladder on image 263 of series 2 measuring approximately 6.4 x 5.0 cm. No other significant abnormality. COLON: No significant abnormality. APPENDIX: No significant abnormality. PERITONEUM: Trace free fluid is seen along the liver and spleen. A moderate amount of free air is present, mainly along the upper abdomen. Questional abscess in the pelvis as described above. No other organized fluid collection is seen. LYMPH NODES: No significant adenopathy. ABDOMINAL AORTA and ARTERIES: No significant abnormality. IVC and VEINS: No significant abnormality. URINARY BLADDER: No significant abnormality. REPRODUCTIVE ORGANS: No significant abnormality. ADDITIONAL FINDINGS: None. BONES: No significant abnormality. IMPRESSION: 1. CT evidence of gastroenteritis complicated by bowel perforation with a pelvic abscess versus conglomerate loops of small bowel as described above. 2. Additional findings as above. Allied health notes reviewed: nursing
--- NOTE | 2020-08-14 20:35 | Progress Note ---
Assessment and Plan POD#4 s/p sigmoidectomy with hartmans pouch for sigmoid perforation. Afebrile and stable. Pt has post op ileus will await return of bowel function and continue NGT decompression. Will keep close eye on colostomy stoma. Hopefully dark color is due to congestion and will resolve. Will start on PPN due to prolonged return of bowel function. Subjective Date of service: 08/14/20 Narrative: No acute events overnight. Patient was transferred to surgical floor. Patient denies pain. Patient says he is passing flatus although there is no gas in his colostomy bag. Patient denies any nausea or vomiting. Objective Vital Signs - 12hr 08/14/20 08/14/20 08/14/20 09:36 11:37 16:23 Temperature 98.1 F 97.9 F Pulse Rate 68 72 Respiratory 16 16 Rate Blood Pressure 115/79 121/77 O2 Sat by Pulse 97 96 95 Oximetry 08/14/20 08/14/20 18:01 19:42 Temperature 98.7 F Pulse Rate 72 Respiratory 18 Rate Blood Pressure 112/70 O2 Sat by Pulse 98 97 Oximetry - General physical appearance well developed, no distress, no pain - Respiratory normal expansion, normal respiratory effort - Abdomen soft, other (dressings c/d/i, colostomy mucosa is purple with visible pink mucosa at the level of the skin and below. patent to digital intubation. Scant SS fluid in bag with no gas. ) - Labs 08/14/20 04:25 08/14/20 04:25 Diabetes panel 08/14/20 Range/Units 04:25 Sodium 136 L (137-145) mmol/L Potassium 3.8 (3.6-5.0) mmol/L Chloride 102.9 (98-107) mmol/L Carbon Dioxide 24 (22-30) mmol/L BUN 20 (9-20) mg/dL Creatinine 0.6 L (0.8-1.3) mg/dL Glucose 103 H (75-100) mg/dL Calcium 8.0 L (8.4-10.2) mg/dL Calcium panel 08/14/20 Range/Units 04:25 Calcium 8.0 L (8.4-10.2) mg/dL Pituitary panel 08/14/20 Range/Units 04:25 Sodium 136 L (137-145) mmol/L Potassium 3.8 (3.6-5.0) mmol/L Chloride 102.9 (98-107) mmol/L Carbon Dioxide 24 (22-30) mmol/L BUN 20 (9-20) mg/dL Creatinine 0.6 L (0.8-1.3) mg/dL Glucose 103 H (75-100) mg/dL Calcium 8.0 L (8.4-10.2) mg/dL Adrenal panel 08/14/20 Range/Units 04:25 Sodium 136 L (137-145) mmol/L Potassium 3.8 (3.6-5.0) mmol/L Chloride 102.9 (98-107) mmol/L Carbon Dioxide 24 (22-30) mmol/L BUN 20 (9-20) mg/dL Creatinine 0.6 L (0.8-1.3) mg/dL Glucose 103 H (75-100) mg/dL Calcium 8.0 L (8.4-10.2) mg/dL
[2020-08-15] MEDS: KETOROLAC 30 MG/1 ML INJ IV SCH ×3 (00:03→12:28)
[2020-08-15] MEDS: metroNIDAZOLE/NS 500 MG/100 ML 500 MG/100 ML BAG IV SCH ×3 (05:40→22:34)
[2020-08-15] MEDS: HEPARIN 5,000 UNIT/1 ML VIAL SUB-Q SCH ×2 (05:41→17:38)
[2020-08-15] MEDS: D5W/0.9% NACL 1,000 ML IV SCH ×2 (05:43→22:53)
--- NOTE | 2020-08-15 08:09 | Progress Note ---
Assessment and Plan Assessment and plan: 45 year old male presented to ED with a history of peptic ulcer disease presented to ER with two day history of worsening abdominal pain, and coffee ground emesis. CT scan shows free air in the upper part of the abdomen. Pt presented tachycardic and hypotensive. General surgery was consulted in ED. A/P -- Perforated viscus Surgical team consulted in ED, s/p sigmoidectomy with hartmans pouch for sigmoid perforation on 08/10/20. Patient currently n.p.o., continue IV fluid hydration Post op care per general surgeon -- Sepsis likely due to perforated viscus Continue empiric antibiotics, follow culture, IV fluid -- Acute kidney injury (BONY) with acute tubular necrosis (ATN) Likely due to sepsis Continue IV fluid resuscitation therapy, monitor urine output every shift, repeat BMP in a.m. to monitor serum creatinine as well as GFR. -- Metabolic acidosis IV fluid resuscitation therapy, serial lactic acid level, supportive care. --Postoperative ileus Continue n.p.o. status, continue IV fluid, serial abdominal examination, abdominal x-ray in the am --History of peptic ulcer disease, continue Protonix --DVT prophylaxis SCD to bilateral lower extremities while in bed, heparin Daily clinical Course: 08/11/20: POD#1 s/p sigmoidectomy with hartmans pouch for sigmoid perforation. Afebrile and stable. Pt has post op ileus will await return of bowel function and continue NGT decompression. 08/12/20: POD#2 Remains Afebrile and stable. Pt has post op ileus and continue NGT decompression. Keep NPO, cont iv fluid 08/13/20; POD#2 Remains Afebrile and stable. Pt has post op ileus and continue NGT decompression. Keep NPO, cont iv fluid. Transfer to surgical unit. 08/14/2020; postop day 3. Patient afebrile, stable. Patient has postop ileus and no bowel movement, continue with NG tube decompression. Continue with IV fluids. Surgery is following. 08/15/2020; patient did not have any bowel movement. Continue with NG tube decompression. Patient started on PPN. Surgery is following. History Interval history: Patient was seen and evaluated this morning Patient denied any pain, patient did not have any bowel movement Patient is on NG tube decompression Hospitalist Physical - Physical exam Narrative exam: Not in cardiopulmonary distress. The patient appeared well nourished and normally developed. Vital signs as documented. Head exam is unremarkable. No scleral icterus . Neck is without jugular venous distension, thyromegaly, or carotid bruits. Lungs are clear to auscultation. Cardiac exam reveals regular rate and Rhythm. Abdominal exam reveals colostomy, clean midline surgical dressing. Extremities are nonedematous and both femoral and pedal pulses are normal. MASTER COSMETOLOGIST: Alert and oriented 3. No focal weakness. - Constitutional Vitals: Temp Pulse Resp BP Pulse Ox 98.3 F 62 16 112/74 96 08/15/20 07:18 08/15/20 07:18 08/15/20 07:18 08/15/20 07:18 08/15/20 07:18 HEART Score - HEART Score Troponin: Troponin T < 0.010 ng/mL (0.00-0.029) 08/10/20 08:56 Results - Labs CBC & Chem 7: 08/14/20 04:25 08/14/20 04:25 Labs: Laboratory Last Values WBC 8.6 K/mm3 (4.5-11.0) 08/14/20 04:25 RBC 3.87 M/mm3 (3.65-5.03) 08/14/20 04:25 Hgb 11.6 gm/dl (11.8-15.2) L 08/14/20 04:25 Hct 34.2 % (35.5-45.6) L 08/14/20 04:25 MCV 88 fl (84-94) 08/14/20 04:25 MCH 30 pg (28-32) 08/14/20 04:25 MCHC 34 % (32-34) 08/14/20 04:25 RDW 14.2 % (13.2-15.2) 08/14/20 04:25 Plt Count 212 K/mm3 (140-440) 08/14/20 04:25 Lymph % (Auto) 14.8 % (13.4-35.0) 08/13/20 05:55 [place] % (Auto) 7.9 % (0.0-7.3) H 08/13/20 05:55 Eos % (Auto) 1.5 % (0.0-4.3) 08/13/20 05:55 Baso % (Auto) 0.1 % (0.0-1.8) 08/13/20 05:55 Lymph # (Auto) 1.1 K/mm3 (1.2-5.4) L 08/13/20 05:55 [place] # (Auto) 0.6 K/mm3 (0.0-0.8) 08/13/20 05:55 Eos # (Auto) 0.1 K/mm3 (0.0-0.4) 08/13/20 05:55 Baso # (Auto) 0.0 K/mm3 (0.0-0.1) 08/13/20 05:55 Add Manual Diff Complete 08/14/20 04:25 Total Counted 100 08/14/20 04:25 Seg Neutrophils % 75.7 % (40.0-70.0) H 08/13/20 05:55 Seg Neuts % (Manual) 84.0 % (40.0-70.0) H 08/14/20 04:25 Band Neutrophils % 1.0 % 08/14/20 04:25 Lymphocytes % (Manual) 8.0 % (13.4-35.0) L 08/14/20 04:25 Monocytes % (Manual) 5.0 % (0.0-7.3) 08/14/20 04:25 Eosinophils % (Manual) 2.0 % (0.0-4.3) 08/14/20 04:25 Metamyelocytes % 1.0 % 08/10/20 08:56 Nucleated RBC % Not Reportable 08/14/20 04:25 Seg Neutrophils # 5.6 K/mm3 (1.8-7.7) 08/13/20 05:55 Seg Neutrophils # Man 7.2 K/mm3 (1.8-7.7) 08/14/20 04:25 Band Neutrophils # 0.1 K/mm3 08/14/20 04:25 Lymphocytes # (Manual) 0.7 K/mm3 (1.2-5.4) L 08/14/20 04:25 Abs React Lymphs (Man) 0.0 K/mm3 08/14/20 04:25 Monocytes # (Manual) 0.4 K/mm3 (0.0-0.8) 08/14/20 04:25 Eosinophils # (Manual) 0.2 K/mm3 (0.0-0.4) 08/14/20 04:25 Basophils # (Manual) 0.0 K/mm3 (0.0-0.1) 08/14/20 04:25 Metamyelocytes # 0.0 K/mm3 08/14/20 04:25 Myelocytes # 0.0 K/mm3 08/14/20 04:25 Promyelocytes # 0.0 K/mm3 08/14/20 04:25 Blast Cells # 0.0 K/mm3 08/14/20 04:25 WBC Morphology Not Reportable 08/14/20 04:25 Hypersegmented Neuts Not Reportable 08/14/20 04:25 Hyposegmented Neuts Not Reportable 08/14/20 04:25 Hypogranular Neuts Not Reportable 08/14/20 04:25 Smudge Cells Not Reportable 08/14/20 04:25 Toxic Granulation Not Reportable 08/14/20 04:25 Toxic Vacuolation Not Reportable 08/14/20 04:25 Dohle Bodies Not Reportable 08/14/20 04:25 Pelger-Huet Anomaly Not Reportable 08/14/20 04:25 Amrit Rods Not Reportable 08/14/20 04:25 Platelet Estimate Consistent w auto 08/14/20 04:25 Clumped Platelets Not Reportable 08/14/20 04:25 Plt Clumps, EDTA Not Reportable 08/14/20 04:25 Large Platelets Not Reportable 08/14/20 04:25 Giant Platelets Not Reportable 08/14/20 04:25 Platelet Satelliting Not Reportable 08/14/20 04:25 Plt Morphology Comment Not Reportable 08/14/20 04:25 RBC Morphology Normal 08/14/20 04:25 Dimorphic RBCs Not Reportable 08/14/20 04:25 Polychromasia Not Reportable 08/14/20 04:25 Hypochromasia Not Reportable 08/14/20 04:25 Poikilocytosis Not Reportable 08/14/20 04:25 Anisocytosis Not Reportable 08/14/20 04:25 Microcytosis Not Reportable 08/14/20 04:25 Macrocytosis Not Reportable 08/14/20 04:25 Spherocytes Not Reportable 08/14/20 04:25 Pappenheimer Bodies Not Reportable 08/14/20 04:25 Sickle Cells Not Reportable 08/14/20 04:25 Target Cells Not Reportable 08/14/20 04:25 Tear Drop Cells Not Reportable 08/14/20 04:25 Ovalocytes Not Reportable 08/14/20 04:25 Helmet Cells Not Reportable 08/14/20 04:25 [place] Bodies Not Reportable 08/14/20 04:25 [place] Rings Not Reportable 08/14/20 04:25 Anita Cells Not Reportable 08/14/20 04:25 Bite Cells Not Reportable 08/14/20 04:25 Crenated Cell Not Reportable 08/14/20 04:25 Elliptocytes Not Reportable 08/14/20 04:25 Acanthocytes (Spur) Not Reportable 08/14/20 04:25 Rouleaux Not Reportable 08/14/20 04:25 Hemoglobin C Crystals Not Reportable 08/14/20 04:25 Schistocytes Not Reportable 08/14/20 04:25 Malaria parasites Not Reportable 08/14/20 04:25 Oscar Bodies Not Reportable 08/14/20 04:25 Hem Pathologist Commnt No 08/14/20 04:25 PT 17.6 Sec. (12.2-14.9) H 08/10/20 Unknown INR 1.38 (0.87-1.13) H 08/10/20 Unknown APTT 33.0 Sec. (24.2-36.6) 08/10/20 08:56 D-Dimer 4279.32 ng/mlDDU (0-234) H 08/10/20 08:56 Sodium 136 mmol/L (137-145) L 08/14/20 04:25 Potassium 3.8 mmol/L (3.6-5.0) 08/14/20 04:25 Chloride 102.9 mmol/L (98-107) 08/14/20 04:25 Carbon Dioxide 24 mmol/L (22-30) 08/14/20 04:25 Anion Gap 13 mmol/L 08/14/20 04:25 BUN 20 mg/dL (9-20) 08/14/20 04:25 Creatinine 0.6 mg/dL (0.8-1.3) L 08/14/20 04:25 Estimated GFR > 60 ml/min 08/14/20 04:25 BUN/Creatinine Ratio 33 % 08/14/20 04:25 Glucose 103 mg/dL (75-100) H 08/14/20 04:25 POC Glucose 100 mg/dL (70-105) 08/15/20 05:25 Lactic Acid 1.70 mmol/L (0.7-2.0) 08/11/20 06:31 Calcium 8.0 mg/dL (8.4-10.2) L 08/14/20 04:25 Ferritin 429.8 ng/mL (30.0-300.0) H 08/10/20 08:56 Total Bilirubin 0.70 mg/dL (0.1-1.2) 08/10/20 08:56 AST 13 units/L (5-40) 08/10/20 08:56 ALT 11 units/L (7-56) 08/10/20 08:56 Alkaline Phosphatase 39 units/L (35-129) 08/10/20 08:56 Lactate Dehydrogenase 160 units/L (91-180) 08/10/20 08:56 Troponin T < 0.010 ng/mL (0.00-0.029) 08/10/20 08:56 C-Reactive Protein 33.80 mg/dL (0.00-1.30) H 08/10/20 08:56 Total Protein 5.9 g/dL (6.3-8.2) L 08/10/20 08:56 Albumin 3.3 g/dL (3.9-5) L 08/10/20 08:56 Albumin/Globulin Ratio 1.3 % 08/10/20 08:56 Lipase 9 units/L (13-60) L 08/10/20 08:56 Procalcitonin > 200.00 ng/mL (<0.15) 08/10/20 08:56 TSH 3.870 mlU/mL (0.270-4.200) 08/10/20 08:56 Urine Color Yellow (Yellow) 08/10/20 17:39 Urine Turbidity Clear (Clear) 08/10/20 17:39 Urine pH 5.0 (5.0-7.0) 08/10/20 17:39 Ur Specific [place] 1.020 (1.003-1.030) 08/10/20 17:39 Urine Protein <15 mg/dl mg/dL (Negative) 08/10/20 17:39 Urine Glucose (UA) Neg mg/dL (Negative) 08/10/20 17:39 Urine Ketones Neg mg/dL (Negative) 08/10/20 17:39 Urine Blood Sm (Negative) 08/10/20 17:39 Urine Nitrite Neg (Negative) 08/10/20 17:39 Urine Bilirubin Neg (Negative) 08/10/20 17:39 Urine Urobilinogen < 2.0 mg/dL (<2.0) 08/10/20 17:39 Ur Leukocyte Esterase Neg (Negative) 08/10/20 17:39 Urine WBC (Auto) 2.0 /HPF (0.0-6.0) 08/10/20 17:39 Urine RBC (Auto) 2.0 /HPF (0.0-6.0) 08/10/20 17:39 U Epithel Cells (Auto) < 1.0 /HPF (0-13.0) 08/10/20 17:39 Urine Mucus Few /HPF 08/10/20 17:39 Salicylates < 0.3 mg/dL (2.8-20.0) L 08/10/20 08:56 Acetaminophen 5.0 ug/mL (10.0-30.0) L 08/10/20 08:56 Plasma/Serum Alcohol < 0.01 % (0-0.07) 08/10/20 08:56 Coronavirus (PCR) Negative (Negative) 08/10/20 08:19 Blood Type O POSITIVE 08/10/20 08:56 Antibody Screen Negative 08/10/20 08:56 Microbiology: Microbiology 08/10/20 08:56 Peripheral/Venous Blood Culture - Preliminary NO GROWTH AFTER 4 DAYS 08/10/20 08:56 Peripheral/Venous Blood Culture - Preliminary NO GROWTH AFTER 4 DAYS Herrmann/IV: Voiding Method Urinal Active Medications - Current Medications Current Medications: Generic Name Dose Route Start Last Admin Trade Name Freq PRN Reason Stop Dose Admin Albuterol 2.5 mg 08/10/20 11:01 Albuterol 2.5 Mg/3 Ml Nebu IH Q3HRT PRN Shortness Of Breath Heparin Sodium (Porcine) 5,000 unit 08/11/20 18:00 08/15/20 05:41 Heparin 5,000 Unit/1 Ml Vial SUB-Q 5,000 unit Q12H DARYA Administration Hydromorphone HCl 0.5 mg 08/10/20 16:20 Hydromorphone 1 Mg/1 Ml Inj IV Q3H PRN Pain , Severe (7-10) Metronidazole 500 mg in 100 mls @ 100 mls/hr 08/10/20 14:00 08/15/20 05:40 Flagyl 500 Mg/100 Ml IV 100 mls/hr Q8HR DARYA Administration Protocol Dextrose/Sodium Chloride 1,000 mls @ 75 mls/hr 08/11/20 10:00 08/15/20 05:43 D5ns IV 75 mls/hr DIRECT DARYA Administration Levofloxacin/Dextrose 750 mg in 150 mls @ 100 mls/hr 08/12/20 18:00 08/14/20 17:34 Levaquin 750mg/150ml IV 100 mls/hr Q24H DARYA Administration Ketorolac Tromethamine 15 mg 08/10/20 18:00 08/15/20 05:40 Ketorolac 30 Mg/1 Ml Inj IV 08/15/20 17:59 15 mg Q6HR DARYA Administration Pantoprazole Sodium 40 mg 08/12/20 10:00 08/14/20 11:24 Pantoprazole 40 Mg Inj IV 40 mg QDAY DARYA Administration Sodium Chloride 10 ml 08/10/20 22:00 08/14/20 22:10 Sodium Chloride 0.9% 10 Ml Flush Syringe IV 10 ml BID DARYA Administration Sodium Chloride 10 ml 08/10/20 11:01 Sodium Chloride 0.9% 10 Ml Flush Syringe IV PRN PRN LINE FLUSH
[2020-08-15] MEDS: PANTOPRAZOLE 40 MG INJ IV SCH (09:09)
--- NOTE | 2020-08-15 10:18 | Progress Note ---
Assessment and Plan POD#5 s/p sigmoidectomy with hartmans pouch for sigmoid perforation. Afebrile and stable. Pt has post op ileus will await return of bowel function and continue NGT decompression. Will keep close eye on colostomy stoma. Hopefully dark color is due to congestion and will resolve. Will start on PPN due to prolonged return of bowel function. Will do NGT clamping trials since no signs of SBO on imaging. will also try dulcolax suppository via stoma and poured some sugar on ostomy to see if that will decrease edema. Subjective Date of service: 08/15/20 Narrative: no acute events. Pt had abdominal x-ray that showed gas and stool in colon up to level of colostomy. no dilated small bowel loops. Pt denies pain, n/v. Pt says he feels gas rumbling in his abdomen. Objective Vital Signs - 12hr 08/14/20 08/15/20 08/15/20 22:56 05:20 07:18 Temperature 97.8 F 98.3 F 98.3 F Pulse Rate 65 69 62 Respiratory 18 18 16 Rate Blood Pressure 121/74 105/72 112/74 O2 Sat by Pulse 96 97 96 Oximetry - General physical appearance well developed, well nourished, no distress, no pain - Respiratory normal expansion, normal respiratory effort - Abdomen soft, not tender, other (incision c/d/i, colostomy continues to be purple, congested and swollen and the surface. no gas in bag.) - Labs 08/14/20 04:25 08/14/20 04:25
--- NOTE | 2020-08-15 10:33 | XRay Report ---
XR abd series w cxr 1V INDICATION / CLINICAL INFORMATION: s/p exlap high ngt output. COMPARISON: CT from 08/10/2020 FINDINGS: CHEST: Nasogastric tube tip extends below the diaphragm with side-port located just past the GE junction. He art size is normal. Lungs are clear. No pleural effusion or pneumothorax. Moderate colonic stool burden. Bowel gas pattern is nonspecific with relative paucity of small bowel gas seen. No evidence of obstruction. Cholecystomy clips. Midline skin rachel. Surgical drain overli es the left lower pelvis. IMPRESSION: Nonspecific bowel gas pattern without radiographic evidence of obstruction. Signer Name: Дмитрий Rivers MD Signed: 08/15/2020 10:28 AM Workstation Name: [id number]
--- NOTE | 2020-08-15 14:12 | Progress Note ---
Assessment and Plan 45 year old male presented to ED with a history of peptic ulcer disease presented to ER with two day history of worsening abdominal pain, and coffee ground emesis. CT scan shows free air in the upper part of the abdomen. Pt presented tachycardic and hypotensive. General surgery was consulted. Patient has perforated viscous. Patient undergone sigmoidectomy. Patient also developed peritonitis and sepsis. Patient is on Levaquin and metronidazole. Patient alert, awake. denies chest pain, shortness of breath or cough. Patient resting on room air. O2 saturation 97%. Patient has no history of smoking, alcohol or drug abuse. 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 No known drug allergies. Patient transfered to surgical floor. Patient Awake. Resting on room air. No acute respiratory distress. O2 saturation 97%. Denies chest pain, abdominal pain or shortness of breath. Patient afebrile. Blood pressure 111/70. No Leukocytosis Chest xray 08/10/20 reported no acute process. CT scan of chest done 08/10/20 reported HEART: No significant abnormality. THORACIC AORTA AND ARTERIES: No significant abnormality. MEDIASTINUM and JANE: No mass or lymphadenopathy. The esophagus is fluid-filled and moderately distended. The trachea and main bronchi are patent and normal in caliber. LUNGS: There is mild dependent bilateral atelectasis without other significant abnormalities. PLEURA: No significant pleural effusion. No pneumothorax Patient starting on TPN. Patient is on S/C Heparin, Protonix, Levaquin and Metronidazole. - Patient Problems (1) Acute kidney injury (BONY) with acute tubular necrosis (ATN) Current Visit: Yes Status: Acute Plan to address problem: Management as per nephrology. (2) Perforated abdominal viscus Current Visit: Yes Status: Acute Plan to address problem: Patient S/P sigmoidectomy. (3) Peritonitis Current Visit: Yes Status: Acute Plan to address problem: Patient is on Levaquin and Metronidazole. (4) Severe sepsis Current Visit: Yes Status: Acute Plan to address problem: Patient is on Levaquin and metronidazole. Subjective Date of service: 08/15/20 Principal diagnosis: Severe sepsis; Perforated Abd. viscus; Peritonitis; Lactic acidosis Interval history: 45 year old male presented to ED with a history of peptic ulcer disease presented to ER with two day history of worsening abdominal pain, and coffee ground emesis. CT scan shows free air in the upper part of the abdomen. Pt presented tachycardic and hypotensive. General surgery was consulted. Patient has perforated viscous. Patient undergone sigmoidectomy. Patient also developed peritonitis and sepsis. Patient is on Levaquin and metronidazole. Patient alert, awake. denies chest pain, shortness of breath or cough. Patient resting on room air. O2 saturation 97%. Patient has no history of smoking, alcohol or drug abuse. 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 No known drug allergies. Patient transfered to surgical floor. Patient Awake. Resting on room air. No acute respiratory distress. O2 saturation 97%. Denies chest pain, abdominal pain or shortness of breath. Patient afebrile. Blood pressure 111/70. No Leukocytosis Chest xray 08/10/20 reported no acute process. CT scan of chest done 08/10/20 reported HEART: No significant abnormality. THORACIC AORTA AND ARTERIES: No significant abnormality. MEDIASTINUM and JANE: No mass or lymphadenopathy. The esophagus is fluid-filled and moderately distended. The trachea and main bronchi are patent and normal in caliber. LUNGS: There is mild dependent bilateral atelectasis without other significant abnormalities. PLEURA: No significant pleural effusion. No pneumothorax Patient starting on TPN. Patient is on S/C Heparin, Protonix, Levaquin and Metronidazole. Objective Vital Signs - 12hr 08/15/20 08/15/20 08/15/20 05:20 07:18 11:40 Temperature 98.3 F 98.3 F 98.4 F Pulse Rate 69 62 66 Respiratory 18 16 16 Rate Blood Pressure 105/72 112/74 111/70 O2 Sat by Pulse 97 96 97 Oximetry Constitutional: no acute distress, alert Eyes: non-icteric ENT: oropharynx moist, other (NGT) Neck: supple, no lymphadenopathy, no JVD Effort: mildly labored Ascultation: Bilateral: diminished breath sounds (bases) Percussion: Bilateral: not dull Cardiovascular: regular rate and rhythm Gastrointestinal: normoactive bowel sounds, soft, non-tender, non-distended, other (colostomy in place) Integumentary: normal, other (post-op changes) Extremities: no cyanosis, no edema, pink and warm, pulses normal Neurologic: non-focal exam, pupils equal and round, CN II-XII normal, motor strength normal and Psychiatric: anxious CBC and BMP: 08/14/20 04:25 08/14/20 04:25 ABG, PT/INR, D-dimer: PT/INR, D-dimer PT 17.6 Sec. (12.2-14.9) H 08/10/20 Unknown INR 1.38 (0.87-1.13) H 08/10/20 Unknown D-Dimer 4279.32 ng/mlDDU (0-234) H 08/10/20 08:56 Abnormal lab findings: Abnormal Labs 08/10/20 08/10/20 08/10/20 08:56 08:56 08:56 WBC 17.8 H RBC 5.31 H Hgb 16.0 H Hct 47.5 H Lymph % (Auto) [place] % (Auto) Lymph # (Auto) Seg Neutrophils % Seg Neuts % (Manual) 73.0 H Lymphocytes % (Manual) 4.0 L Monocytes % (Manual) 8.0 H Seg Neutrophils # Man 13.0 H Lymphocytes # (Manual) 0.7 L Monocytes # (Manual) 1.4 H PT INR D-Dimer 4279.32 H Sodium 135 L Chloride 94.4 L BUN 56 H Creatinine 3.2 H Glucose 153 H Lactic Acid Calcium Ferritin C-Reactive Protein 33.80 H Total Protein 5.9 L Albumin 3.3 L Lipase Salicylates Acetaminophen 08/10/20 08/10/20 08/10/20 08:56 08:56 08:56 WBC RBC Hgb Hct Lymph % (Auto) [place] % (Auto) Lymph # (Auto) Seg Neutrophils % Seg Neuts % (Manual) Lymphocytes % (Manual) Monocytes % (Manual) Seg Neutrophils # Man Lymphocytes # (Manual) Monocytes # (Manual) PT INR D-Dimer Sodium Chloride BUN Creatinine Glucose Lactic Acid 4.20 H* Calcium Ferritin 429.8 H C-Reactive Protein Total Protein Albumin Lipase Salicylates < 0.3 L Acetaminophen 08/10/20 08/10/20 08/10/20 08:56 08:56 22:55 WBC RBC Hgb Hct Lymph % (Auto) [place] % (Auto) Lymph # (Auto) Seg Neutrophils % Seg Neuts % (Manual) Lymphocytes % (Manual) Monocytes % (Manual) Seg Neutrophils # Man Lymphocytes # (Manual) Monocytes # (Manual) PT INR D-Dimer Sodium Chloride BUN Creatinine Glucose Lactic Acid 2.70 H* Calcium Ferritin C-Reactive Protein Total Protein Albumin Lipase 9 L Salicylates Acetaminophen 5.0 L 08/10/20 08/10/20 08/11/20 Unknown Unknown 08:17 WBC RBC Hgb Hct Lymph % (Auto) [place] % (Auto) Lymph # (Auto) Seg Neutrophils % Seg Neuts % (Manual) Lymphocytes % (Manual) Monocytes % (Manual) Seg Neutrophils # Man Lymphocytes # (Manual) Monocytes # (Manual) PT 17.6 H INR 1.38 H D-Dimer Sodium 135 L Chloride 97.7 L BUN 65 H Creatinine 1.6 H Glucose 126 H Lactic Acid 4.30 H* Calcium 7.9 L Ferritin C-Reactive Protein Total Protein Albumin Lipase Salicylates Acetaminophen 08/12/20 08/12/20 08/13/20 05:56 05:56 05:55 WBC RBC 3.59 L Hgb 11.5 L 10.8 L Hct 33.6 L D 31.9 L Lymph % (Auto) 9.0 L [place] % (Auto) 7.9 H Lymph # (Auto) 0.7 L 1.1 L Seg Neutrophils % 83.8 H 75.7 H Seg Neuts % (Manual) Lymphocytes % (Manual) Monocytes % (Manual) Seg Neutrophils # Man Lymphocytes # (Manual) Monocytes # (Manual) PT INR D-Dimer Sodium Chloride 107.3 H BUN 40 H Creatinine Glucose 108 H Lactic Acid Calcium 8.1 L Ferritin C-Reactive Protein Total Protein Albumin Lipase Salicylates Acetaminophen 08/13/20 08/14/20 08/14/20 05:55 04:25 04:25 WBC RBC Hgb 11.6 L Hct 34.2 L Lymph % (Auto) [place] % (Auto) Lymph # (Auto) Seg Neutrophils % Seg Neuts % (Manual) 84.0 H Lymphocytes % (Manual) 8.0 L Monocytes % (Manual) Seg Neutrophils # Man Lymphocytes # (Manual) 0.7 L Monocytes # (Manual) PT INR D-Dimer Sodium 136 L Chloride BUN 22 H Creatinine 0.6 L 0.6 L Glucose 103 H Lactic Acid Calcium 7.7 L 8.0 L Ferritin C-Reactive Protein Total Protein Albumin Lipase Salicylates Acetaminophen Chest x-ray: report reviewed, image reviewed Additional Studies: XR abd series w cxr 1V 08/15/20 INDICATION / CLINICAL INFORMATION: s/p exlap high ngt output. COMPARISON: CT from 08/10/2020 FINDINGS: CHEST: Nasogastric tube tip extends below the diaphragm with side-port located just past the GE junction. Heart size is normal. Lungs are clear. No pleural effusion or pneumothorax. Moderate colonic stool burden. Bowel gas pattern is nonspecific with relative paucity of small bowel gas seen. No evidence of obstruction. Cholecystomy clips. Midline skin rachel. Surgical drain overlies the left lower pelvis. IMPRESSION: Nonspecific bowel gas pattern without radiographic evidence of obstruction. Allied health notes reviewed: nursing
[2020-08-15] MEDS: HYDROmorphone 1 MG/1 ML INJ IV PRN (22:34)
[2020-08-16] MEDS: metroNIDAZOLE/NS 500 MG/100 ML 500 MG/100 ML BAG IV SCH ×3 (05:18→22:43)
[2020-08-16] MEDS: HEPARIN 5,000 UNIT/1 ML VIAL SUB-Q SCH ×2 (05:18→17:02)
[2020-08-16 05:23] LABS: Alanine Aminotransferase 21 units/L (7-56); Albumin 2.7 g/dL (3.9-5); Blood Urea Nitrogen 18 mg/dL (9-20); Calcium 8.2 mg/dL (8.4-10.2); Hemolysis Index 1
[2020-08-16] MEDS: D5W/0.9% NACL 1,000 ML IV SCH ×2 (05:24→17:02)
[2020-08-16 05:36] LABS: BUN/Creatinine Ratio 30
--- NOTE | 2020-08-16 09:01 | Progress Note ---
Assessment and Plan Assessment and plan: 45 year old male presented to ED with a history of peptic ulcer disease presented to ER with two day history of worsening abdominal pain, and coffee ground emesis. CT scan shows free air in the upper part of the abdomen. Pt presented tachycardic and hypotensive. General surgery was consulted in ED. A/P -- Perforated viscus Surgical team consulted in ED, s/p sigmoidectomy with hartmans pouch for sigmoid perforation on 08/10/20. Patient currently n.p.o., continue IV fluid hydration Post op care per general surgeon -- Sepsis likely due to perforated viscus Continue empiric antibiotics, follow culture, IV fluid -- Acute kidney injury (BONY) with acute tubular necrosis (ATN) Likely due to sepsis Continue IV fluid resuscitation therapy, monitor urine output every shift, repeat BMP in a.m. to monitor serum creatinine as well as GFR. -- Metabolic acidosis IV fluid resuscitation therapy, serial lactic acid level, supportive care. --Postoperative ileus Continue n.p.o. status, continue IV fluid, serial abdominal examination, abdominal x-ray in the am --History of peptic ulcer disease, continue Protonix --DVT prophylaxis SCD to bilateral lower extremities while in bed, heparin Daily clinical Course: 08/11/20: POD#1 s/p sigmoidectomy with hartmans pouch for sigmoid perforation. Afebrile and stable. Pt has post op ileus will await return of bowel function and continue NGT decompression. 08/12/20: POD#2 Remains Afebrile and stable. Pt has post op ileus and continue NGT decompression. Keep NPO, cont iv fluid 08/13/20; POD#2 Remains Afebrile and stable. Pt has post op ileus and continue NGT decompression. Keep NPO, cont iv fluid. Transfer to surgical unit. 08/14/2020; postop day 3. Patient afebrile, stable. Patient has postop ileus and no bowel movement, continue with NG tube decompression. Continue with IV fluids. Surgery is following. 08/15/2020; patient did not have any bowel movement. Continue with NG tube decompression. Patient started on PPN. Surgery is following. 08/16/2020; NG tube was clamped. Patient is on PPN. Surgery is following. History Interval history: Patient was seen and evaluated this morning Patient denied any pain, patient did not have any bowel movement NG tube was clamped Hospitalist Physical - Physical exam Narrative exam: Not in cardiopulmonary distress. The patient appeared well nourished and normally developed. Vital signs as documented. Head exam is unremarkable. No scleral icterus . Neck is without jugular venous distension, thyromegaly, or carotid bruits. Lungs are clear to auscultation. Cardiac exam reveals regular rate and Rhythm. Abdominal exam reveals colostomy, clean midline surgical dressing. Extremities are nonedematous and both femoral and pedal pulses are normal. 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 No focal weakness. - Constitutional Vitals: Temp Pulse Resp BP Pulse Ox 98.4 F 68 16 103/62 100 08/16/20 07:00 08/16/20 07:00 08/16/20 07:00 08/16/20 07:00 08/16/20 07:00 HEART Score - HEART Score Troponin: Troponin T < 0.010 ng/mL (0.00-0.029) 08/10/20 08:56 Results - Labs CBC & Chem 7: 08/14/20 04:25 08/16/20 04:13 Labs: Laboratory Last Values WBC 8.6 K/mm3 (4.5-11.0) 08/14/20 04:25 RBC 3.87 M/mm3 (3.65-5.03) 08/14/20 04:25 Hgb 11.6 gm/dl (11.8-15.2) L 08/14/20 04:25 Hct 34.2 % (35.5-45.6) L 08/14/20 04:25 MCV 88 fl (84-94) 08/14/20 04:25 MCH 30 pg (28-32) 08/14/20 04:25 MCHC 34 % (32-34) 08/14/20 04:25 RDW 14.2 % (13.2-15.2) 08/14/20 04:25 Plt Count 212 K/mm3 (140-440) 08/14/20 04:25 Lymph % (Auto) 14.8 % (13.4-35.0) 08/13/20 05:55 Ness % (Auto) 7.9 % (0.0-7.3) H 08/13/20 05:55 Eos % (Auto) 1.5 % (0.0-4.3) 08/13/20 05:55 Baso % (Auto) 0.1 % (0.0-1.8) 08/13/20 05:55 Lymph # (Auto) 1.1 K/mm3 (1.2-5.4) L 08/13/20 05:55 Ness # (Auto) 0.6 K/mm3 (0.0-0.8) 08/13/20 05:55 Eos # (Auto) 0.1 K/mm3 (0.0-0.4) 08/13/20 05:55 Baso # (Auto) 0.0 K/mm3 (0.0-0.1) 08/13/20 05:55 Add Manual Diff Complete 08/14/20 04:25 Total Counted 100 08/14/20 04:25 Seg Neutrophils % 75.7 % (40.0-70.0) H 08/13/20 05:55 Seg Neuts % (Manual) 84.0 % (40.0-70.0) H 08/14/20 04:25 Band Neutrophils % 1.0 % 08/14/20 04:25 Lymphocytes % (Manual) 8.0 % (13.4-35.0) L 08/14/20 04:25 Monocytes % (Manual) 5.0 % (0.0-7.3) 08/14/20 04:25 Eosinophils % (Manual) 2.0 % (0.0-4.3) 08/14/20 04:25 Metamyelocytes % 1.0 % 08/10/20 08:56 Nucleated RBC % Not Reportable 08/14/20 04:25 Seg Neutrophils # 5.6 K/mm3 (1.8-7.7) 08/13/20 05:55 Seg Neutrophils # Man 7.2 K/mm3 (1.8-7.7) 08/14/20 04:25 Band Neutrophils # 0.1 K/mm3 08/14/20 04:25 Lymphocytes # (Manual) 0.7 K/mm3 (1.2-5.4) L 08/14/20 04:25 Abs React Lymphs (Man) 0.0 K/mm3 08/14/20 04:25 Monocytes # (Manual) 0.4 K/mm3 (0.0-0.8) 08/14/20 04:25 Eosinophils # (Manual) 0.2 K/mm3 (0.0-0.4) 08/14/20 04:25 Basophils # (Manual) 0.0 K/mm3 (0.0-0.1) 08/14/20 04:25 Metamyelocytes # 0.0 K/mm3 08/14/20 04:25 Myelocytes # 0.0 K/mm3 08/14/20 04:25 Promyelocytes # 0.0 K/mm3 08/14/20 04:25 Blast Cells # 0.0 K/mm3 08/14/20 04:25 WBC Morphology Not Reportable 08/14/20 04:25 Hypersegmented Neuts Not Reportable 08/14/20 04:25 Hyposegmented Neuts Not Reportable 08/14/20 04:25 Hypogranular Neuts Not Reportable 08/14/20 04:25 Smudge Cells Not Reportable 08/14/20 04:25 Toxic Granulation Not Reportable 08/14/20 04:25 Toxic Vacuolation Not Reportable 08/14/20 04:25 Dohle Bodies Not Reportable 08/14/20 04:25 Pelger-Huet Anomaly Not Reportable 08/14/20 04:25 Amrit Rods Not Reportable 08/14/20 04:25 Platelet Estimate Consistent w auto 08/14/20 04:25 Clumped Platelets Not Reportable 08/14/20 04:25 Plt Clumps, EDTA Not Reportable 08/14/20 04:25 Large Platelets Not Reportable 08/14/20 04:25 Giant Platelets Not Reportable 08/14/20 04:25 Platelet Satelliting Not Reportable 08/14/20 04:25 Plt Morphology Comment Not Reportable 08/14/20 04:25 RBC Morphology Normal 08/14/20 04:25 Dimorphic RBCs Not Reportable 08/14/20 04:25 Polychromasia Not Reportable 08/14/20 04:25 Hypochromasia Not Reportable 08/14/20 04:25 Poikilocytosis Not Reportable 08/14/20 04:25 Anisocytosis Not Reportable 08/14/20 04:25 Microcytosis Not Reportable 08/14/20 04:25 Macrocytosis Not Reportable 08/14/20 04:25 Spherocytes Not Reportable 08/14/20 04:25 Pappenheimer Bodies Not Reportable 08/14/20 04:25 Sickle Cells Not Reportable 08/14/20 04:25 Target Cells Not Reportable 08/14/20 04:25 Tear Drop Cells Not Reportable 08/14/20 04:25 Ovalocytes Not Reportable 08/14/20 04:25 Helmet Cells Not Reportable 08/14/20 04:25 [place] Bodies Not Reportable 08/14/20 04:25 [place] Rings Not Reportable 08/14/20 04:25 [place] Cells Not Reportable 08/14/20 04:25 Bite Cells Not Reportable 08/14/20 04:25 Crenated Cell Not Reportable 08/14/20 04:25 Elliptocytes Not Reportable 08/14/20 04:25 Acanthocytes (Spur) Not Reportable 08/14/20 04:25 Rouleaux Not Reportable 08/14/20 04:25 Hemoglobin C Crystals Not Reportable 08/14/20 04:25 Schistocytes Not Reportable 08/14/20 04:25 Malaria parasites Not Reportable 08/14/20 04:25 [place] Bodies Not Reportable 08/14/20 04:25 Hem Pathologist Commnt No 08/14/20 04:25 PT 17.6 Sec. (12.2-14.9) H 08/10/20 Unknown INR 1.38 (0.87-1.13) H 08/10/20 Unknown APTT 33.0 Sec. (24.2-36.6) 08/10/20 08:56 D-Dimer 4279.32 ng/mlDDU (0-234) H 08/10/20 08:56 Sodium 143 mmol/L (137-145) D 08/16/20 04:13 Potassium 4.0 mmol/L (3.6-5.0) 08/16/20 04:13 Chloride 110.0 mmol/L (98-107) H 08/16/20 04:13 Carbon Dioxide 26 mmol/L (22-30) 08/16/20 04:13 Anion Gap 11 mmol/L 08/16/20 04:13 BUN 18 mg/dL (9-20) 08/16/20 04:13 Creatinine 0.6 mg/dL (0.8-1.3) L 08/16/20 04:13 Estimated GFR > 60 ml/min 08/16/20 04:13 BUN/Creatinine Ratio 30 % 08/16/20 04:13 Glucose 87 mg/dL (75-100) 08/16/20 04:13 POC Glucose 100 mg/dL (70-105) 08/15/20 05:25 Lactic Acid 1.70 mmol/L (0.7-2.0) 08/11/20 06:31 Calcium 8.2 mg/dL (8.4-10.2) L 08/16/20 04:13 Phosphorus 3.00 mg/dL (2.5-4.5) 08/16/20 04:13 Magnesium 2.00 mg/dL (1.7-2.3) 08/16/20 04:13 Ferritin 429.8 ng/mL (30.0-300.0) H 08/10/20 08:56 Total Bilirubin 0.30 mg/dL (0.1-1.2) 08/16/20 04:13 AST 32 units/L (5-40) 08/16/20 04:13 ALT 21 units/L (7-56) 08/16/20 04:13 Alkaline Phosphatase 38 units/L (35-129) 08/16/20 04:13 Lactate Dehydrogenase 160 units/L (91-180) 08/10/20 08:56 Troponin T < 0.010 ng/mL (0.00-0.029) 08/10/20 08:56 C-Reactive Protein 33.80 mg/dL (0.00-1.30) H 08/10/20 08:56 Total Protein 5.1 g/dL (6.3-8.2) L 08/16/20 04:13 Albumin 2.7 g/dL (3.9-5) L 08/16/20 04:13 Albumin/Globulin Ratio 1.1 % 08/16/20 04:13 Triglycerides 85 mg/dL (2-149) 08/16/20 04:13 Lipase 9 units/L (13-60) L 08/10/20 08:56 Procalcitonin > 200.00 ng/mL (<0.15) 08/10/20 08:56 TSH 3.870 mlU/mL (0.270-4.200) 08/10/20 08:56 Urine Color Yellow (Yellow) 08/10/20 17:39 Urine Turbidity Clear (Clear) 08/10/20 17:39 Urine pH 5.0 (5.0-7.0) 08/10/20 17:39 Ur Specific [place] 1.020 (1.003-1.030) 08/10/20 17:39 Urine Protein <15 mg/dl mg/dL (Negative) 08/10/20 17:39 Urine Glucose (UA) Neg mg/dL (Negative) 08/10/20 17:39 Urine Ketones Neg mg/dL (Negative) 08/10/20 17:39 Urine Blood Sm (Negative) 08/10/20 17:39 Urine Nitrite Neg (Negative) 08/10/20 17:39 Urine Bilirubin Neg (Negative) 08/10/20 17:39 Urine Urobilinogen < 2.0 mg/dL (<2.0) 08/10/20 17:39 Ur Leukocyte Esterase Neg (Negative) 08/10/20 17:39 Urine WBC (Auto) 2.0 /HPF (0.0-6.0) 08/10/20 17:39 Urine RBC (Auto) 2.0 /HPF (0.0-6.0) 08/10/20 17:39 U Epithel Cells (Auto) < 1.0 /HPF (0-13.0) 08/10/20 17:39 Urine Mucus Few /HPF 08/10/20 17:39 Salicylates < 0.3 mg/dL (2.8-20.0) L 08/10/20 08:56 Acetaminophen 5.0 ug/mL (10.0-30.0) L 08/10/20 08:56 Plasma/Serum Alcohol < 0.01 % (0-0.07) 08/10/20 08:56 Coronavirus (PCR) Negative (Negative) 08/10/20 08:19 Blood Type O POSITIVE 08/10/20 08:56 Antibody Screen Negative 08/10/20 08:56 Microbiology: Microbiology 08/10/20 08:56 Peripheral/Venous Blood Culture - Final NO GROWTH AFTER 5 DAYS 08/10/20 08:56 Peripheral/Venous Blood Culture - Final NO GROWTH AFTER 5 DAYS Herrmann/IV: Voiding Method Urinal Active Medications - Current Medications Current Medications: Generic Name Dose Route Start Last Admin Trade Name Freq PRN Reason Stop Dose Admin Albuterol 2.5 mg 08/10/20 11:01 Albuterol 2.5 Mg/3 Ml Nebu IH Q3HRT PRN Shortness Of Breath Bisacodyl 10 mg 08/15/20 18:00 08/15/20 17:38 Bisacodyl 10 Mg Rect Supp MT 10 mg QDAY DARYA Administration Heparin Sodium (Porcine) 5,000 unit 08/11/20 18:00 08/16/20 05:18 Heparin 5,000 Unit/1 Ml Vial SUB-Q 5,000 unit Q12H DARYA Administration Hydromorphone HCl 0.5 mg 08/10/20 16:20 08/15/20 22:34 Hydromorphone 1 Mg/1 Ml Inj IV 0.5 mg Q3H PRN Administration Pain , Severe (7-10) Metronidazole 500 mg in 100 mls @ 100 mls/hr 08/10/20 14:00 08/16/20 05:18 Flagyl 500 Mg/100 Ml IV 100 mls/hr Q8HR DARYA Administration Protocol Dextrose/Sodium Chloride 1,000 mls @ 75 mls/hr 08/11/20 10:00 08/16/20 05:24 D5ns IV 75 mls/hr DIRECT DARYA Administration Levofloxacin/Dextrose 750 mg in 150 mls @ 100 mls/hr 08/12/20 18:00 08/15/20 17:38 Levaquin 750mg/150ml IV 100 mls/hr Q24H DARYA Administration Pantoprazole Sodium 40 mg 08/12/20 10:00 08/15/20 09:09 Pantoprazole 40 Mg Inj IV 40 mg QDAY DARYA Administration Sodium Chloride 10 ml 08/10/20 22:00 08/15/20 22:34 Sodium Chloride 0.9% 10 Ml Flush Syringe IV 10 ml BID DARYA Administration Sodium Chloride 10 ml 08/10/20 11:01 Sodium Chloride 0.9% 10 Ml Flush Syringe IV PRN PRN LINE FLUSH Nutrition/Malnutrition Assess - Dietary Evaluation Nutrition/Malnutrition Findings: Nutrition Notes Start: 08/15/20 12:14 Freq: Status: Active Protocol: Document 08/15/20 12:14 KE (Rec: 08/15/20 12:23 KE [id number]) Nutrition Notes Need for Assessment generated from: MD Order Initial or Follow up Assessment Current Diagnosis Acute Kidney Injury,Sepsis Other Pertinent Diagnosis PVD, peritonitis, bowel perforation Current Diet TPN Labs/Tests No labs today although ordered Pertinent Medications D5NS at 75 ml/hr Height 5 ft 7 in Weight 70.307 kg Usual Body Weight 72.72 kg [place] Body Weight (kg) 67.27 BMI 24.3 Intake Prior to Admission Poor Weight change and time frame 3% wt loss in 7 days Weight Status Appropriate Subjective/Other Information MD order for TPN/PPN. Pt has not eaten in 7 days. Pt with perforated bowel and prolonged post op ileus. Will start PPN tomorrow as STAT labs this AM did not arrive in time to order PPN. Pt with NGT to LIS. Burn Absent Trauma Absent GI Symptoms Other Current % PO Negligible Minimum of two criteria Yes Energy Intake (non-severe) <75% Estimated Energy Requirement >7 days Interpretation of Weight Loss (severe) >2% in 1 week #1 Nutrition Diagnosis Malnutrition Etiology bowel perforation As Evidenced by Signs and Symptoms <75% of EER in > or = to 7 days, 3% wt loss in 1 week Is patient on ventilator? No Is Patient Ambulatory and/or Out of Bed No REE-([place]-St. Jeor-confined to bed) [phone] Calculation Used for Recommendations [place]-St Jeor Additional Notes Protein: (1.2-1.5g/kg) 84-105g Fluid: 1 ml/kcal or per MD Nutrition Intervention Change Diet Order: Advance as able Goal #1 Start PPN Follow-Up By: 08/16/20 Additional Comments Labs in AM: CMP, Mg, Phos, TG
--- NOTE | 2020-08-16 11:14 | Electrocardiograph Report ---
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
[2020-08-16] MEDS: PANTOPRAZOLE 40 MG INJ IV SCH (11:21)
--- NOTE | 2020-08-16 13:09 | Progress Note ---
Assessment and Plan POD#6 s/p sigmoidectomy with hartmans pouch for sigmoid perforation. Afebrile and stable. Pt has post op ileus will await return of bowel function and continue NGT decompression. Will keep close eye on colostomy stoma. Hopefully dark color is due to congestion and will resolve. Will start on PPN due to prolonged return of bowel function. Will do NGT clamping trials since no signs of SBO on imaging. will also try dulcolax suppository via stoma and poured some sugar on ostomy to see if that will decrease edema. Subjective Date of service: 08/16/20 Narrative: no acute events overnight. Pt denies pain, nausea or vomiting. Says he feels a litter better compared to yesterday. Pt says he can feel gas moving NGT was calamped most of yesterday with minimal residuals. Objective Vital Signs - 12hr 08/16/20 08/16/20 05:06 07:00 Temperature 98.3 F 98.4 F Pulse Rate 66 68 Respiratory 18 16 Rate Blood Pressure 114/70 Blood Pressure 103/62 [Left] O2 Sat by Pulse 98 100 Oximetry - General physical appearance well developed, well nourished, no distress, no pain - Respiratory normal expansion, normal respiratory effort - Abdomen soft, not tender, other (ostomy mucosa dark and edemetous, SS drainage in bag. no gas in bag. incision c/d/i) - Labs 08/14/20 04:25 08/16/20 04:13 Diabetes panel 08/16/20 Range/Units 04:13 Sodium 143 D (137-145) mmol/L Potassium 4.0 (3.6-5.0) mmol/L Chloride 110.0 H (98-107) mmol/L Carbon Dioxide 26 (22-30) mmol/L BUN 18 (9-20) mg/dL Creatinine 0.6 L (0.8-1.3) mg/dL Glucose 87 (75-100) mg/dL Calcium 8.2 L (8.4-10.2) mg/dL AST 32 (5-40) units/L ALT 21 (7-56) units/L Alkaline Phosphatase 38 (35-129) units/L Total Protein 5.1 L (6.3-8.2) g/dL Albumin 2.7 L (3.9-5) g/dL Triglycerides 85 (2-149) mg/dL Calcium panel 08/16/20 Range/Units 04:13 Calcium 8.2 L (8.4-10.2) mg/dL Phosphorus 3.00 (2.5-4.5) mg/dL Albumin 2.7 L (3.9-5) g/dL Pituitary panel 08/16/20 Range/Units 04:13 Sodium 143 D (137-145) mmol/L Potassium 4.0 (3.6-5.0) mmol/L Chloride 110.0 H (98-107) mmol/L Carbon Dioxide 26 (22-30) mmol/L BUN 18 (9-20) mg/dL Creatinine 0.6 L (0.8-1.3) mg/dL Glucose 87 (75-100) mg/dL Calcium 8.2 L (8.4-10.2) mg/dL Adrenal panel 08/16/20 Range/Units 04:13 Sodium 143 D (137-145) mmol/L Potassium 4.0 (3.6-5.0) mmol/L Chloride 110.0 H (98-107) mmol/L Carbon Dioxide 26 (22-30) mmol/L BUN 18 (9-20) mg/dL Creatinine 0.6 L (0.8-1.3) mg/dL Glucose 87 (75-100) mg/dL Calcium 8.2 L (8.4-10.2) mg/dL Total Bilirubin 0.30 (0.1-1.2) mg/dL AST 32 (5-40) units/L ALT 21 (7-56) units/L Alkaline Phosphatase 38 (35-129) units/L Total Protein 5.1 L (6.3-8.2) g/dL Albumin 2.7 L (3.9-5) g/dL
--- NOTE | 2020-08-16 14:21 | Progress Note ---
Assessment and Plan Severe sepsis Perforated abdominal viscus Peritonitis History of substance abuse Leukocytosis Hemoconcentration Mild hyponatremia Lactic acidosis (Hemodynamically stable but still at risk for DT's and needs close observation) - continue CIWA protocolo for EtOH withdrawal - MVI supplementation - wound care per RN/WCT - supplemental oxygen to keep O2 sats > 90% - prn Bronchodilators (JUNIE) with pulm hygiene per RT - avoid nephrotoxins, renally dose all medications - mobility protocols to prevent pressure ulcers - PT/OT as tolerated - continue accuchecks with glycemic control per SSI for target blood glucose < 180 mg/dL - Smoking cessation strongly counseled at the bedside - home oxygen evaluation at discharge - GI & VTE prophylaxis - Flu & pneumovax per protocol - continue other care per attending / other consultants - prn analgesia per pain score ... re-evaluate in am & prn Subjective Date of service: 08/16/20 Principal diagnosis: Severe sepsis; Perforated Abd. viscus; Peritonitis; Lactic acidosis Interval history: Patient is seen today for: Severe sepsis; Perforated abdominal viscus; Peritonitis; H/O substance abuse; Mild hyponatremia; Lactic acidosis Seen and examined at bedside; 24hour events reviewed; nursing and respiratory care staff consulted; no adverse overnight events reported to me; restring peacefully in bed; Objective Vital Signs - 12hr 08/16/20 08/16/20 05:06 07:00 Temperature 98.3 F 98.4 F Pulse Rate 66 68 Respiratory 18 16 Rate Blood Pressure 114/70 Blood Pressure 103/62 [Left] O2 Sat by Pulse 98 100 Oximetry Constitutional: no acute distress, other (middle aged male with mildly increased respiratory effort at rest) Eyes: non-icteric ENT: oropharynx moist, other (NGT) Neck: supple, no lymphadenopathy, no JVD Effort: mildly labored Ascultation: Bilateral: clear, diminished breath sounds (bases) Percussion: Bilateral: not dull Cardiovascular: regular rate and rhythm Gastrointestinal: normoactive bowel sounds, soft, non-tender, non-distended, other (colostomy in place) Integumentary: normal, other (post-op changes) Extremities: no cyanosis, no edema, pink and warm, pulses normal Neurologic: non-focal exam, pupils equal and round, CN II-XII normal, motor strength normal and Psychiatric: mood appropriate, affect normal CBC and BMP: 08/14/20 04:25 08/16/20 04:13 ABG, PT/INR, D-dimer: PT/INR, D-dimer PT 17.6 Sec. (12.2-14.9) H 08/10/20 Unknown INR 1.38 (0.87-1.13) H 08/10/20 Unknown D-Dimer 4279.32 ng/mlDDU (0-234) H 08/10/20 08:56 Abnormal lab findings: Abnormal Labs 08/10/20 08/10/20 08/10/20 08:56 08:56 08:56 WBC 17.8 H RBC 5.31 H Hgb 16.0 H Hct 47.5 H Lymph % (Auto) [place] % (Auto) Lymph # (Auto) Seg Neutrophils % Seg Neuts % (Manual) 73.0 H Lymphocytes % (Manual) 4.0 L Monocytes % (Manual) 8.0 H Seg Neutrophils # Man 13.0 H Lymphocytes # (Manual) 0.7 L Monocytes # (Manual) 1.4 H PT INR D-Dimer 4279.32 H Sodium 135 L Chloride 94.4 L BUN 56 H Creatinine 3.2 H Glucose 153 H Lactic Acid Calcium Ferritin C-Reactive Protein 33.80 H Total Protein 5.9 L Albumin 3.3 L Lipase Salicylates Acetaminophen 08/10/20 08/10/20 08/10/20 08:56 08:56 08:56 WBC RBC Hgb Hct Lymph % (Auto) [place] % (Auto) Lymph # (Auto) Seg Neutrophils % Seg Neuts % (Manual) Lymphocytes % (Manual) Monocytes % (Manual) Seg Neutrophils # Man Lymphocytes # (Manual) Monocytes # (Manual) PT INR D-Dimer Sodium Chloride BUN Creatinine Glucose Lactic Acid 4.20 H* Calcium Ferritin 429.8 H C-Reactive Protein Total Protein Albumin Lipase Salicylates < 0.3 L Acetaminophen 08/10/20 08/10/20 08/10/20 08:56 08:56 22:55 WBC RBC Hgb Hct Lymph % (Auto) [place] % (Auto) Lymph # (Auto) Seg Neutrophils % Seg Neuts % (Manual) Lymphocytes % (Manual) Monocytes % (Manual) Seg Neutrophils # Man Lymphocytes # (Manual) Monocytes # (Manual) PT INR D-Dimer Sodium Chloride BUN Creatinine Glucose Lactic Acid 2.70 H* Calcium Ferritin C-Reactive Protein Total Protein Albumin Lipase 9 L Salicylates Acetaminophen 5.0 L 08/10/20 08/10/20 08/11/20 Unknown Unknown 08:17 WBC RBC Hgb Hct Lymph % (Auto) [place] % (Auto) Lymph # (Auto) Seg Neutrophils % Seg Neuts % (Manual) Lymphocytes % (Manual) Monocytes % (Manual) Seg Neutrophils # Man Lymphocytes # (Manual) Monocytes # (Manual) PT 17.6 H INR 1.38 H D-Dimer Sodium 135 L Chloride 97.7 L BUN 65 H Creatinine 1.6 H Glucose 126 H Lactic Acid 4.30 H* Calcium 7.9 L Ferritin C-Reactive Protein Total Protein Albumin Lipase Salicylates Acetaminophen 08/12/20 08/12/20 08/13/20 05:56 05:56 05:55 WBC RBC 3.59 L Hgb 11.5 L 10.8 L Hct 33.6 L D 31.9 L Lymph % (Auto) 9.0 L [place] % (Auto) 7.9 H Lymph # (Auto) 0.7 L 1.1 L Seg Neutrophils % 83.8 H 75.7 H Seg Neuts % (Manual) Lymphocytes % (Manual) Monocytes % (Manual) Seg Neutrophils # Man Lymphocytes # (Manual) Monocytes # (Manual) PT INR D-Dimer Sodium Chloride 107.3 H BUN 40 H Creatinine Glucose 108 H Lactic Acid Calcium 8.1 L Ferritin C-Reactive Protein Total Protein Albumin Lipase Salicylates Acetaminophen 08/13/20 08/14/20 08/14/20 05:55 04:25 04:25 WBC RBC Hgb 11.6 L Hct 34.2 L Lymph % (Auto) [place] % (Auto) Lymph # (Auto) Seg Neutrophils % Seg Neuts % (Manual) 84.0 H Lymphocytes % (Manual) 8.0 L Monocytes % (Manual) Seg Neutrophils # Man Lymphocytes # (Manual) 0.7 L Monocytes # (Manual) PT INR D-Dimer Sodium 136 L Chloride BUN 22 H Creatinine 0.6 L 0.6 L Glucose 103 H Lactic Acid Calcium 7.7 L 8.0 L Ferritin C-Reactive Protein Total Protein Albumin Lipase Salicylates Acetaminophen 08/16/20 04:13 WBC RBC Hgb Hct Lymph % (Auto) [place] % (Auto) Lymph # (Auto) Seg Neutrophils % Seg Neuts % (Manual) Lymphocytes % (Manual) Monocytes % (Manual) Seg Neutrophils # Man Lymphocytes # (Manual) Monocytes # (Manual) PT INR D-Dimer Sodium Chloride 110.0 H BUN Creatinine 0.6 L Glucose Lactic Acid Calcium 8.2 L Ferritin C-Reactive Protein Total Protein 5.1 L Albumin 2.7 L Lipase Salicylates Acetaminophen Allied health notes reviewed: nursing
[2020-08-17] MEDS: metroNIDAZOLE/NS 500 MG/100 ML 500 MG/100 ML BAG IV SCH ×3 (05:09→21:13)
[2020-08-17] MEDS: HEPARIN 5,000 UNIT/1 ML VIAL SUB-Q SCH ×2 (05:10→18:12)
[2020-08-17 08:08] LABS: Blood Urea Nitrogen 15 mg/dL (9-20); Calcium 8.3 mg/dL (8.4-10.2); Hemolysis Index 5
[2020-08-17 08:20] LABS: BUN/Creatinine Ratio 25
--- NOTE | 2020-08-17 09:55 | Progress Note ---
Assessment and Plan Assessment and plan: 45 year old male presented to ED with a history of peptic ulcer disease presented to ER with two day history of worsening abdominal pain, and coffee ground emesis. CT scan shows free air in the upper part of the abdomen. Pt presented tachycardic and hypotensive. General surgery was consulted in ED. A/P -- Perforated viscus Surgical team consulted in ED, s/p sigmoidectomy with hartmans pouch for sigmoid perforation on 08/10/20. Patient currently n.p.o., continue IV fluid hydration Post op care per general surgeon -- Sepsis likely due to perforated viscus Continue empiric antibiotics, follow culture, IV fluid -- Acute kidney injury (BONY) with acute tubular necrosis (ATN) Likely due to sepsis Continue IV fluid resuscitation therapy, monitor urine output every shift, repeat BMP in a.m. to monitor serum creatinine as well as GFR. -- Metabolic acidosis IV fluid resuscitation therapy, serial lactic acid level, supportive care. --Postoperative ileus Continue n.p.o. status, continue IV fluid, serial abdominal examination, abdominal x-ray in the am --History of peptic ulcer disease, continue Protonix --DVT prophylaxis SCD to bilateral lower extremities while in bed, heparin Daily clinical Course: 08/11/20: POD#1 s/p sigmoidectomy with hartmans pouch for sigmoid perforation. Afebrile and stable. Pt has post op ileus will await return of bowel function and continue NGT decompression. 08/12/20: POD#2 Remains Afebrile and stable. Pt has post op ileus and continue NGT decompression. Keep NPO, cont iv fluid 08/13/20; POD#2 Remains Afebrile and stable. Pt has post op ileus and continue NGT decompression. Keep NPO, cont iv fluid. Transfer to surgical unit. 08/14/2020; postop day 3. Patient afebrile, stable. Patient has postop ileus and no bowel movement, continue with NG tube decompression. Continue with IV fluids. Surgery is following. 08/15/2020; patient did not have any bowel movement. Continue with NG tube decompression. Patient started on PPN. Surgery is following. 08/16/2020; NG tube was clamped. Patient is on PPN. Surgery is following. 08/17/2020; patient is on PPN, no fever or abdominal pain. Surgery is following. History Interval history: Patient was seen and evaluated this morning Patient denied any pain, patient did not have any bowel movement NG tube was clamped Hospitalist Physical - Physical exam Narrative exam: Not in cardiopulmonary distress. The patient appeared well nourished and normally developed. Vital signs as documented. Head exam is unremarkable. No scleral icterus . Neck is without jugular venous distension, thyromegaly, or carotid bruits. Lungs are clear to auscultation. Cardiac exam reveals regular rate and Rhythm. Abdominal exam reveals colostomy, clean midline surgical dressing. Extremities are nonedematous and both femoral and pedal pulses are normal. YARD SWITCHER: Alert and oriented 3. No focal weakness. - Constitutional Vitals: Temp Pulse Resp BP Pulse Ox 98.3 F 59 L 18 103/70 98 08/17/20 05:51 08/17/20 05:51 08/17/20 05:51 08/17/20 05:51 08/17/20 08:33 HEART Score - HEART Score Troponin: Troponin T < 0.010 ng/mL (0.00-0.029) 08/10/20 08:56 Results - Labs CBC & Chem 7: 08/14/20 04:25 08/17/20 07:12 Labs: Laboratory Last Values WBC 8.6 K/mm3 (4.5-11.0) 08/14/20 04:25 RBC 3.87 M/mm3 (3.65-5.03) 08/14/20 04:25 Hgb 11.6 gm/dl (11.8-15.2) L 08/14/20 04:25 Hct 34.2 % (35.5-45.6) L 08/14/20 04:25 MCV 88 fl (84-94) 08/14/20 04:25 MCH 30 pg (28-32) 08/14/20 04:25 MCHC 34 % (32-34) 08/14/20 04:25 RDW 14.2 % (13.2-15.2) 08/14/20 04:25 Plt Count 212 K/mm3 (140-440) 08/14/20 04:25 Lymph % (Auto) 14.8 % (13.4-35.0) 08/13/20 05:55 [place] % (Auto) 7.9 % (0.0-7.3) H 08/13/20 05:55 Eos % (Auto) 1.5 % (0.0-4.3) 08/13/20 05:55 Baso % (Auto) 0.1 % (0.0-1.8) 08/13/20 05:55 Lymph # (Auto) 1.1 K/mm3 (1.2-5.4) L 08/13/20 05:55 [place] # (Auto) 0.6 K/mm3 (0.0-0.8) 08/13/20 05:55 Eos # (Auto) 0.1 K/mm3 (0.0-0.4) 08/13/20 05:55 Baso # (Auto) 0.0 K/mm3 (0.0-0.1) 08/13/20 05:55 Add Manual Diff Complete 08/14/20 04:25 Total Counted 100 08/14/20 04:25 Seg Neutrophils % 75.7 % (40.0-70.0) H 08/13/20 05:55 Seg Neuts % (Manual) 84.0 % (40.0-70.0) H 08/14/20 04:25 Band Neutrophils % 1.0 % 08/14/20 04:25 Lymphocytes % (Manual) 8.0 % (13.4-35.0) L 08/14/20 04:25 Monocytes % (Manual) 5.0 % (0.0-7.3) 08/14/20 04:25 Eosinophils % (Manual) 2.0 % (0.0-4.3) 08/14/20 04:25 Metamyelocytes % 1.0 % 08/10/20 08:56 Nucleated RBC % Not Reportable 08/14/20 04:25 Seg Neutrophils # 5.6 K/mm3 (1.8-7.7) 08/13/20 05:55 Seg Neutrophils # Man 7.2 K/mm3 (1.8-7.7) 08/14/20 04:25 Band Neutrophils # 0.1 K/mm3 08/14/20 04:25 Lymphocytes # (Manual) 0.7 K/mm3 (1.2-5.4) L 08/14/20 04:25 Abs React Lymphs (Man) 0.0 K/mm3 08/14/20 04:25 Monocytes # (Manual) 0.4 K/mm3 (0.0-0.8) 08/14/20 04:25 Eosinophils # (Manual) 0.2 K/mm3 (0.0-0.4) 08/14/20 04:25 Basophils # (Manual) 0.0 K/mm3 (0.0-0.1) 08/14/20 04:25 Metamyelocytes # 0.0 K/mm3 08/14/20 04:25 Myelocytes # 0.0 K/mm3 08/14/20 04:25 Promyelocytes # 0.0 K/mm3 08/14/20 04:25 Blast Cells # 0.0 K/mm3 08/14/20 04:25 WBC Morphology Not Reportable 08/14/20 04:25 Hypersegmented Neuts Not Reportable 08/14/20 04:25 Hyposegmented Neuts Not Reportable 08/14/20 04:25 Hypogranular Neuts Not Reportable 08/14/20 04:25 Smudge Cells Not Reportable 08/14/20 04:25 Toxic Granulation Not Reportable 08/14/20 04:25 Toxic Vacuolation Not Reportable 08/14/20 04:25 Dohle Bodies Not Reportable 08/14/20 04:25 Pelger-Huet Anomaly Not Reportable 08/14/20 04:25 Amrit Rods Not Reportable 08/14/20 04:25 Platelet Estimate Consistent w auto 08/14/20 04:25 Clumped Platelets Not Reportable 08/14/20 04:25 Plt Clumps, EDTA Not Reportable 08/14/20 04:25 Large Platelets Not Reportable 08/14/20 04:25 Giant Platelets Not Reportable 08/14/20 04:25 Platelet Satelliting Not Reportable 08/14/20 04:25 Plt Morphology Comment Not Reportable 08/14/20 04:25 RBC Morphology Normal 08/14/20 04:25 Dimorphic RBCs Not Reportable 08/14/20 04:25 Polychromasia Not Reportable 08/14/20 04:25 Hypochromasia Not Reportable 08/14/20 04:25 Poikilocytosis Not Reportable 08/14/20 04:25 Anisocytosis Not Reportable 08/14/20 04:25 Microcytosis Not Reportable 08/14/20 04:25 Macrocytosis Not Reportable 08/14/20 04:25 Spherocytes Not Reportable 08/14/20 04:25 Pappenheimer Bodies Not Reportable 08/14/20 04:25 Sickle Cells Not Reportable 08/14/20 04:25 Target Cells Not Reportable 08/14/20 04:25 Tear Drop Cells Not Reportable 08/14/20 04:25 Ovalocytes Not Reportable 08/14/20 04:25 Helmet Cells Not Reportable 08/14/20 04:25 Andersen-Carefree Bodies Not Reportable 08/14/20 04:25 [place] Rings Not Reportable 08/14/20 04:25 Anita Cells Not Reportable 08/14/20 04:25 Bite Cells Not Reportable 08/14/20 04:25 Crenated Cell Not Reportable 08/14/20 04:25 Elliptocytes Not Reportable 08/14/20 04:25 Acanthocytes (Spur) Not Reportable 08/14/20 04:25 Rouleaux Not Reportable 08/14/20 04:25 Hemoglobin C Crystals Not Reportable 08/14/20 04:25 Schistocytes Not Reportable 08/14/20 04:25 Malaria parasites Not Reportable 08/14/20 04:25 Oscar Bodies Not Reportable 08/14/20 04:25 Hem Pathologist Commnt No 08/14/20 04:25 PT 17.6 Sec. (12.2-14.9) H 08/10/20 Unknown INR 1.38 (0.87-1.13) H 08/10/20 Unknown APTT 33.0 Sec. (24.2-36.6) 08/10/20 08:56 D-Dimer 4279.32 ng/mlDDU (0-234) H 08/10/20 08:56 Sodium 140 mmol/L (137-145) 08/17/20 07:12 Potassium 4.0 mmol/L (3.6-5.0) 08/17/20 07:12 Chloride 107.5 mmol/L (98-107) H 08/17/20 07:12 Carbon Dioxide 24 mmol/L (22-30) 08/17/20 07:12 Anion Gap 13 mmol/L 08/17/20 07:12 BUN 15 mg/dL (9-20) 08/17/20 07:12 Creatinine 0.6 mg/dL (0.8-1.3) L 08/17/20 07:12 Estimated GFR > 60 ml/min 08/17/20 07:12 BUN/Creatinine Ratio 25 % 08/17/20 07:12 Glucose 138 mg/dL (75-100) H 08/17/20 07:12 POC Glucose 100 mg/dL (70-105) 08/15/20 05:25 Lactic Acid 1.70 mmol/L (0.7-2.0) 08/11/20 06:31 Calcium 8.3 mg/dL (8.4-10.2) L 08/17/20 07:12 Phosphorus 2.90 mg/dL (2.5-4.5) 08/17/20 07:12 Magnesium 1.80 mg/dL (1.7-2.3) 08/17/20 07:12 Ferritin 429.8 ng/mL (30.0-300.0) H 08/10/20 08:56 Total Bilirubin 0.30 mg/dL (0.1-1.2) 08/16/20 04:13 AST 32 units/L (5-40) 08/16/20 04:13 ALT 21 units/L (7-56) 08/16/20 04:13 Alkaline Phosphatase 38 units/L (35-129) 08/16/20 04:13 Lactate Dehydrogenase 160 units/L (91-180) 08/10/20 08:56 Troponin T < 0.010 ng/mL (0.00-0.029) 08/10/20 08:56 C-Reactive Protein 33.80 mg/dL (0.00-1.30) H 08/10/20 08:56 Total Protein 5.1 g/dL (6.3-8.2) L 08/16/20 04:13 Albumin 2.7 g/dL (3.9-5) L 08/16/20 04:13 Albumin/Globulin Ratio 1.1 % 08/16/20 04:13 Triglycerides 85 mg/dL (2-149) 08/16/20 04:13 Lipase 9 units/L (13-60) L 08/10/20 08:56 Procalcitonin > 200.00 ng/mL (<0.15) 08/10/20 08:56 TSH 3.870 mlU/mL (0.270-4.200) 08/10/20 08:56 Urine Color Yellow (Yellow) 08/10/20 17:39 Urine Turbidity Clear (Clear) 08/10/20 17:39 Urine pH 5.0 (5.0-7.0) 08/10/20 17:39 Ur Specific [place] 1.020 (1.003-1.030) 08/10/20 17:39 Urine Protein <15 mg/dl mg/dL (Negative) 08/10/20 17:39 Urine Glucose (UA) Neg mg/dL (Negative) 08/10/20 17:39 Urine Ketones Neg mg/dL (Negative) 08/10/20 17:39 Urine Blood Sm (Negative) 08/10/20 17:39 Urine Nitrite Neg (Negative) 08/10/20 17:39 Urine Bilirubin Neg (Negative) 08/10/20 17:39 Urine Urobilinogen < 2.0 mg/dL (<2.0) 08/10/20 17:39 Ur Leukocyte Esterase Neg (Negative) 08/10/20 17:39 Urine WBC (Auto) 2.0 /HPF (0.0-6.0) 08/10/20 17:39 Urine RBC (Auto) 2.0 /HPF (0.0-6.0) 08/10/20 17:39 U Epithel Cells (Auto) < 1.0 /HPF (0-13.0) 08/10/20 17:39 Urine Mucus Few /HPF 08/10/20 17:39 Salicylates < 0.3 mg/dL (2.8-20.0) L 08/10/20 08:56 Acetaminophen 5.0 ug/mL (10.0-30.0) L 08/10/20 08:56 Plasma/Serum Alcohol < 0.01 % (0-0.07) 08/10/20 08:56 Coronavirus (PCR) Negative (Negative) 08/10/20 08:19 Blood Type O POSITIVE 08/10/20 08:56 Antibody Screen Negative 08/10/20 08:56 Herrmann/IV: Voiding Method Urinal Active Medications - Current Medications Current Medications: Generic Name Dose Route Start Last Admin Trade Name Freq PRN Reason Stop Dose Admin Albuterol 2.5 mg 08/10/20 11:01 Albuterol 2.5 Mg/3 Ml Nebu IH Q3HRT PRN Shortness Of Breath Bisacodyl 10 mg 08/15/20 18:00 08/16/20 11:22 Bisacodyl 10 Mg Rect Supp NV 10 mg QDAY DARYA Administration Heparin Sodium (Porcine) 5,000 unit 08/11/20 18:00 08/17/20 05:10 Heparin 5,000 Unit/1 Ml Vial SUB-Q 5,000 unit Q12H DARYA Administration Hydromorphone HCl 0.5 mg 08/10/20 16:20 08/15/20 22:34 Hydromorphone 1 Mg/1 Ml Inj IV 0.5 mg Q3H PRN Administration Pain , Severe (7-10) Metronidazole 500 mg in 100 mls @ 100 mls/hr 08/10/20 14:00 08/17/20 05:09 Flagyl 500 Mg/100 Ml IV 100 mls/hr Q8HR DARYA Administration Protocol Dextrose/Sodium Chloride 1,000 mls @ 75 mls/hr 08/11/20 10:00 08/16/20 17:02 D5ns IV 75 mls/hr DIRECT DARYA Administration Levofloxacin/Dextrose 750 mg in 150 mls @ 100 mls/hr 08/12/20 18:00 08/16/20 17:02 Levaquin 750mg/150ml IV 100 mls/hr Q24H DARYA Administration Pantoprazole Sodium 40 mg 08/12/20 10:00 08/16/20 11:21 Pantoprazole 40 Mg Inj IV 40 mg QDAY DARYA Administration Sodium Chloride 10 ml 08/10/20 22:00 08/16/20 22:43 Sodium Chloride 0.9% 10 Ml Flush Syringe IV 10 ml BID DARYA Administration Sodium Chloride 10 ml 08/10/20 11:01 Sodium Chloride 0.9% 10 Ml Flush Syringe IV PRN PRN LINE FLUSH Nutrition/Malnutrition Assess - Dietary Evaluation Nutrition/Malnutrition Findings: Nutrition Notes Start: 08/15/20 12:14 Freq: Status: Active Protocol: Document 08/16/20 15:06 ANTHONY (Rec: 08/16/20 15:08 [email or web address] [id number]) Nutrition Notes Initial or Follow up Brief Note Subjective/Other Information RD unaware that pt to receive PN; labs ordered for tomorrow; continue current IVF. Pt with peripheral iv access. PPN to start tomorrow. Nutrition Intervention Follow-Up By: 08/17/20 Additional Comments F/U: Start PPN (Day 1)
[2020-08-17] MEDS: PANTOPRAZOLE 40 MG INJ IV SCH (11:30)
[2020-08-17] MEDS: HYDROmorphone 1 MG/1 ML INJ IV PRN (11:58)
--- NOTE | 2020-08-17 13:02 | Progress Note ---
Assessment and Plan Severe sepsis Perforated abdominal viscus Peritonitis History of substance abuse Leukocytosis Hemoconcentration Mild hyponatremia Lactic acidosis -Incentive spirometry, airway clearance - continue [facility] protocol for alcohol withdrawal -Wound and ostomy care per RN/WCT - avoid nephrotoxins, dose all medications for GFR and CrCL -Supportive transfusions as clinically indicated, keep HgB >7g/dL -Electrolyte replacement, keep K at 4, Mag at 2, Phos at 2.5 -Continue with TPN -Antibiotics- Levofloxacin/Metronidazole - PT/OT , increase activity - continue accuchecks with glycemic control per SSI for target blood glucose < 180 mg/dL -VTE prophylaxis - prn analgesia per pain score Updated patient and family at the bedside. Timing of enteric nutritional support per General Surgery Subjective Date of service: 08/17/20 Principal diagnosis: Severe sepsis; Perforated Abd. viscus; Peritonitis; Lactic acidosis Interval history: Patient is seen today for: Severe sepsis; Perforated abdominal viscus; Peritonitis; H/O substance abuse; Mild hyponatremia; Lactic acidosis Seen and examined at bedside; 24hour events reviewed; nursing and respiratory care staff consulted; no adverse overnight events reported to me; restring peacefully in bed; NGT to LIS, denies any chest pain, no shortness of breath, no fevers, no chills,no fevers. He wants to know if he can eat Objective Vital Signs - 12hr 08/17/20 08/17/20 08/17/20 05:51 08:17 08:33 Temperature 98.3 F 98.3 F Pulse Rate 59 L 67 Respiratory 18 16 Rate Blood Pressure 103/70 103/61 O2 Sat by Pulse 98 98 98 Oximetry Constitutional: no acute distress, alert Eyes: non-icteric ENT: oropharynx moist, other (NGT) Neck: supple, no lymphadenopathy, no JVD Effort: normal Ascultation: Bilateral: clear, diminished breath sounds (bases) Percussion: Bilateral: not dull Cardiovascular: regular rate and rhythm, other (S1,S2) Gastrointestinal: normoactive bowel sounds, soft, non-tender, non-distended, other (colostomy in place, midline dressing) Integumentary: normal, other (post-op changes) Extremities: no cyanosis, no edema, pink and warm, pulses normal Neurologic: non-focal exam, pupils equal and round, CN II-XII normal, motor strength normal and Psychiatric: mood appropriate, affect normal CBC and BMP: 08/14/20 04:25 08/17/20 07:12 ABG, PT/INR, D-dimer: PT/INR, D-dimer PT 17.6 Sec. (12.2-14.9) H 08/10/20 Unknown INR 1.38 (0.87-1.13) H 08/10/20 Unknown D-Dimer 4279.32 ng/mlDDU (0-234) H 08/10/20 08:56 Abnormal lab findings: Abnormal Labs 08/10/20 08/10/20 08/10/20 08:56 08:56 08:56 WBC 17.8 H RBC 5.31 H Hgb 16.0 H Hct 47.5 H Lymph % (Auto) [place] % (Auto) Lymph # (Auto) Seg Neutrophils % Seg Neuts % (Manual) 73.0 H Lymphocytes % (Manual) 4.0 L Monocytes % (Manual) 8.0 H Seg Neutrophils # Man 13.0 H Lymphocytes # (Manual) 0.7 L Monocytes # (Manual) 1.4 H PT INR D-Dimer 4279.32 H Sodium 135 L Chloride 94.4 L BUN 56 H Creatinine 3.2 H Glucose 153 H Lactic Acid Calcium Ferritin C-Reactive Protein 33.80 H Total Protein 5.9 L Albumin 3.3 L Lipase Salicylates Acetaminophen 08/10/20 08/10/20 08/10/20 08:56 08:56 08:56 WBC RBC Hgb Hct Lymph % (Auto) [place] % (Auto) Lymph # (Auto) Seg Neutrophils % Seg Neuts % (Manual) Lymphocytes % (Manual) Monocytes % (Manual) Seg Neutrophils # Man Lymphocytes # (Manual) Monocytes # (Manual) PT INR D-Dimer Sodium Chloride BUN Creatinine Glucose Lactic Acid 4.20 H* Calcium Ferritin 429.8 H C-Reactive Protein Total Protein Albumin Lipase Salicylates < 0.3 L Acetaminophen 08/10/20 08/10/20 08/10/20 08:56 08:56 22:55 WBC RBC Hgb Hct Lymph % (Auto) [place] % (Auto) Lymph # (Auto) Seg Neutrophils % Seg Neuts % (Manual) Lymphocytes % (Manual) Monocytes % (Manual) Seg Neutrophils # Man Lymphocytes # (Manual) Monocytes # (Manual) PT INR D-Dimer Sodium Chloride BUN Creatinine Glucose Lactic Acid 2.70 H* Calcium Ferritin C-Reactive Protein Total Protein Albumin Lipase 9 L Salicylates Acetaminophen 5.0 L 08/10/20 08/10/20 08/11/20 Unknown Unknown 08:17 WBC RBC Hgb Hct Lymph % (Auto) [place] % (Auto) Lymph # (Auto) Seg Neutrophils % Seg Neuts % (Manual) Lymphocytes % (Manual) Monocytes % (Manual) Seg Neutrophils # Man Lymphocytes # (Manual) Monocytes # (Manual) PT 17.6 H INR 1.38 H D-Dimer Sodium 135 L Chloride 97.7 L BUN 65 H Creatinine 1.6 H Glucose 126 H Lactic Acid 4.30 H* Calcium 7.9 L Ferritin C-Reactive Protein Total Protein Albumin Lipase Salicylates Acetaminophen 08/12/20 08/12/20 08/13/20 05:56 05:56 05:55 WBC RBC 3.59 L Hgb 11.5 L 10.8 L Hct 33.6 L D 31.9 L Lymph % (Auto) 9.0 L [place] % (Auto) 7.9 H Lymph # (Auto) 0.7 L 1.1 L Seg Neutrophils % 83.8 H 75.7 H Seg Neuts % (Manual) Lymphocytes % (Manual) Monocytes % (Manual) Seg Neutrophils # Man Lymphocytes # (Manual) Monocytes # (Manual) PT INR D-Dimer Sodium Chloride 107.3 H BUN 40 H Creatinine Glucose 108 H Lactic Acid Calcium 8.1 L Ferritin C-Reactive Protein Total Protein Albumin Lipase Salicylates Acetaminophen 08/13/20 08/14/20 08/14/20 05:55 04:25 04:25 WBC RBC Hgb 11.6 L Hct 34.2 L Lymph % (Auto) [place] % (Auto) Lymph # (Auto) Seg Neutrophils % Seg Neuts % (Manual) 84.0 H Lymphocytes % (Manual) 8.0 L Monocytes % (Manual) Seg Neutrophils # Man Lymphocytes # (Manual) 0.7 L Monocytes # (Manual) PT INR D-Dimer Sodium 136 L Chloride BUN 22 H Creatinine 0.6 L 0.6 L Glucose 103 H Lactic Acid Calcium 7.7 L 8.0 L Ferritin C-Reactive Protein Total Protein Albumin Lipase Salicylates Acetaminophen 08/16/20 08/17/20 04:13 07:12 WBC RBC Hgb Hct Lymph % (Auto) [place] % (Auto) Lymph # (Auto) Seg Neutrophils % Seg Neuts % (Manual) Lymphocytes % (Manual) Monocytes % (Manual) Seg Neutrophils # Man Lymphocytes # (Manual) Monocytes # (Manual) PT INR D-Dimer Sodium Chloride 110.0 H 107.5 H BUN Creatinine 0.6 L 0.6 L Glucose 138 H Lactic Acid Calcium 8.2 L 8.3 L Ferritin C-Reactive Protein Total Protein 5.1 L Albumin 2.7 L Lipase Salicylates Acetaminophen Allied health notes reviewed: nursing
--- NOTE | 2020-08-17 15:12 | Progress Note ---
Assessment and Plan POD#7 s/p sigmoidectomy with hartmans pouch for sigmoid perforation. Afebrile and stable. Pt has post op ileus will await return of bowel function and continue NGT decompression. Will keep close eye on colostomy stoma. Hopefully dark color is due to congestion and will resolve. Showing signs of some ostomy function. Will start on PPN due to prolonged return of bowel function. will also try dulcolax suppository via stoma. continue ambulation Subjective Date of service: 08/17/20 Narrative: No acute events overnight. Patient continues to tolerate clamped NG tube with minimal residual. Patient denies nausea and vomiting. Patient denies pain. Objective Vital Signs - 12hr 08/17/20 08/17/20 08/17/20 05:51 08:17 08:33 Temperature 98.3 F 98.3 F Pulse Rate 59 L 67 Respiratory 18 16 Rate Blood Pressure 103/70 103/61 O2 Sat by Pulse 98 98 98 Oximetry - General physical appearance well developed, well nourished, no distress, no pain - Respiratory normal expansion, normal respiratory effort - Abdomen soft, not tender, other (staple line intact, ostomy continues to be purple and edemetous. Gas in bag with scant liquid stool. ) - Labs 08/14/20 04:25 08/17/20 07:12 Diabetes panel 08/17/20 Range/Units 07:12 Sodium 140 (137-145) mmol/L Potassium 4.0 (3.6-5.0) mmol/L Chloride 107.5 H (98-107) mmol/L Carbon Dioxide 24 (22-30) mmol/L BUN 15 (9-20) mg/dL Creatinine 0.6 L (0.8-1.3) mg/dL Glucose 138 H (75-100) mg/dL Calcium 8.3 L (8.4-10.2) mg/dL Calcium panel 08/17/20 Range/Units 07:12 Calcium 8.3 L (8.4-10.2) mg/dL Phosphorus 2.90 (2.5-4.5) mg/dL Pituitary panel 08/17/20 Range/Units 07:12 Sodium 140 (137-145) mmol/L Potassium 4.0 (3.6-5.0) mmol/L Chloride 107.5 H (98-107) mmol/L Carbon Dioxide 24 (22-30) mmol/L BUN 15 (9-20) mg/dL Creatinine 0.6 L (0.8-1.3) mg/dL Glucose 138 H (75-100) mg/dL Calcium 8.3 L (8.4-10.2) mg/dL Adrenal panel 08/17/20 Range/Units 07:12 Sodium 140 (137-145) mmol/L Potassium 4.0 (3.6-5.0) mmol/L Chloride 107.5 H (98-107) mmol/L Carbon Dioxide 24 (22-30) mmol/L BUN 15 (9-20) mg/dL Creatinine 0.6 L (0.8-1.3) mg/dL Glucose 138 H (75-100) mg/dL Calcium 8.3 L (8.4-10.2) mg/dL
[2020-08-17] MEDS ORDERED: FAT EMULSIONS 20% 250 ML IV SCH (20:00)
[2020-08-17] MEDS ORDERED: TOTAL PARENTERAL NUTRITION 1,800 ML IV SCH (20:00)
[2020-08-18 05:19] LABS: BUN/Creatinine Ratio 32; Blood Urea Nitrogen 16 mg/dL (9-20); Calcium 8.2 mg/dL (8.4-10.2); Hemolysis Index 3
[2020-08-18] MEDS: metroNIDAZOLE/NS 500 MG/100 ML 500 MG/100 ML BAG IV SCH (06:50)
[2020-08-18] MEDS: HEPARIN 5,000 UNIT/1 ML VIAL SUB-Q SCH ×2 (06:59→17:20)
--- NOTE | 2020-08-18 08:29 | Progress Note ---
Assessment and Plan Assessment and plan: 45 year old male presented to ED with a history of peptic ulcer disease presented to ER with two day history of worsening abdominal pain, and coffee ground emesis. CT scan shows free air in the upper part of the abdomen. Pt presented tachycardic and hypotensive. General surgery was consulted in ED. A/P -- Perforated viscus Surgical team consulted in ED, s/p sigmoidectomy with hartmans pouch for sigmoid perforation on 08/10/20. Patient currently n.p.o., continue IV fluid hydration Post op care per general surgeon -- Sepsis likely due to perforated viscus Continue empiric antibiotics, follow culture, IV fluid -- Acute kidney injury (BONY) with acute tubular necrosis (ATN) Likely due to sepsis Continue IV fluid resuscitation therapy, monitor urine output every shift, repeat BMP in a.m. to monitor serum creatinine as well as GFR. -- Metabolic acidosis IV fluid resuscitation therapy, serial lactic acid level, supportive care. --Postoperative ileus Continue n.p.o. status, continue IV fluid, serial abdominal examination, abdominal x-ray in the am --History of peptic ulcer disease, continue Protonix --DVT prophylaxis SCD to bilateral lower extremities while in bed, heparin Daily clinical Course: 08/11/20: POD#1 s/p sigmoidectomy with hartmans pouch for sigmoid perforation. Afebrile and stable. Pt has post op ileus will await return of bowel function and continue NGT decompression. 08/12/20: POD#2 Remains Afebrile and stable. Pt has post op ileus and continue NGT decompression. Keep NPO, cont iv fluid 08/13/20; POD#2 Remains Afebrile and stable. Pt has post op ileus and continue NGT decompression. Keep NPO, cont iv fluid. Transfer to surgical unit. 08/14/2020; postop day 3. Patient afebrile, stable. Patient has postop ileus and no bowel movement, continue with NG tube decompression. Continue with IV fluids. Surgery is following. 08/15/2020; patient did not have any bowel movement. Continue with NG tube decompression. Patient started on PPN. Surgery is following. 08/16/2020; NG tube was clamped. Patient is on PPN. Surgery is following. 08/17/2020; patient is on PPN, no fever or abdominal pain. Surgery is following. 08/18/2020; patient is on PPN. Patient is on IV antibiotics. Surgery is following the patient. History Interval history: Patient was seen and evaluated this morning Patient denied any pain, patient did not have any bowel movement On NG tube decompression Hospitalist Physical - Physical exam Narrative exam: Not in cardiopulmonary distress. The patient appeared well nourished and normally developed. Vital signs as documented. Head exam is unremarkable. No scleral icterus . Neck is without jugular venous distension, thyromegaly, or carotid bruits. Lungs are clear to auscultation. Cardiac exam reveals regular rate and Rhythm. Abdominal exam reveals colostomy, clean midline surgical dressing. The tip of the stoma is dark. Extremities are nonedematous and both femoral and pedal pulses are normal. RISK ADVISOR: Alert and oriented 3. No focal weakness. - Constitutional Vitals: Temp Pulse Resp BP Pulse Ox 98.2 F 62 22 120/75 99 08/18/20 07:22 08/18/20 07:22 08/18/20 07:22 08/18/20 07:22 08/18/20 07:22 HEART Score - HEART Score Troponin: Troponin T < 0.010 ng/mL (0.00-0.029) 08/10/20 08:56 Results - Labs CBC & Chem 7: 08/14/20 04:25 08/18/20 04:28 Labs: Laboratory Last Values WBC 8.6 K/mm3 (4.5-11.0) 08/14/20 04:25 RBC 3.87 M/mm3 (3.65-5.03) 08/14/20 04:25 Hgb 11.6 gm/dl (11.8-15.2) L 08/14/20 04:25 Hct 34.2 % (35.5-45.6) L 08/14/20 04:25 MCV 88 fl (84-94) 08/14/20 04:25 MCH 30 pg (28-32) 08/14/20 04:25 MCHC 34 % (32-34) 08/14/20 04:25 RDW 14.2 % (13.2-15.2) 08/14/20 04:25 Plt Count 212 K/mm3 (140-440) 08/14/20 04:25 Lymph % (Auto) 14.8 % (13.4-35.0) 08/13/20 05:55 [place] % (Auto) 7.9 % (0.0-7.3) H 08/13/20 05:55 Eos % (Auto) 1.5 % (0.0-4.3) 08/13/20 05:55 Baso % (Auto) 0.1 % (0.0-1.8) 08/13/20 05:55 Lymph # (Auto) 1.1 K/mm3 (1.2-5.4) L 08/13/20 05:55 [place] # (Auto) 0.6 K/mm3 (0.0-0.8) 08/13/20 05:55 Eos # (Auto) 0.1 K/mm3 (0.0-0.4) 08/13/20 05:55 Baso # (Auto) 0.0 K/mm3 (0.0-0.1) 08/13/20 05:55 Add Manual Diff Complete 08/14/20 04:25 Total Counted 100 08/14/20 04:25 Seg Neutrophils % 75.7 % (40.0-70.0) H 08/13/20 05:55 Seg Neuts % (Manual) 84.0 % (40.0-70.0) H 08/14/20 04:25 Band Neutrophils % 1.0 % 08/14/20 04:25 Lymphocytes % (Manual) 8.0 % (13.4-35.0) L 08/14/20 04:25 Monocytes % (Manual) 5.0 % (0.0-7.3) 08/14/20 04:25 Eosinophils % (Manual) 2.0 % (0.0-4.3) 08/14/20 04:25 Metamyelocytes % 1.0 % 08/10/20 08:56 Nucleated RBC % Not Reportable 08/14/20 04:25 Seg Neutrophils # 5.6 K/mm3 (1.8-7.7) 08/13/20 05:55 Seg Neutrophils # Man 7.2 K/mm3 (1.8-7.7) 08/14/20 04:25 Band Neutrophils # 0.1 K/mm3 08/14/20 04:25 Lymphocytes # (Manual) 0.7 K/mm3 (1.2-5.4) L 08/14/20 04:25 Abs React Lymphs (Man) 0.0 K/mm3 08/14/20 04:25 Monocytes # (Manual) 0.4 K/mm3 (0.0-0.8) 08/14/20 04:25 Eosinophils # (Manual) 0.2 K/mm3 (0.0-0.4) 08/14/20 04:25 Basophils # (Manual) 0.0 K/mm3 (0.0-0.1) 08/14/20 04:25 Metamyelocytes # 0.0 K/mm3 08/14/20 04:25 Myelocytes # 0.0 K/mm3 08/14/20 04:25 Promyelocytes # 0.0 K/mm3 08/14/20 04:25 Blast Cells # 0.0 K/mm3 08/14/20 04:25 WBC Morphology Not Reportable 08/14/20 04:25 Hypersegmented Neuts Not Reportable 08/14/20 04:25 Hyposegmented Neuts Not Reportable 08/14/20 04:25 Hypogranular Neuts Not Reportable 08/14/20 04:25 Smudge Cells Not Reportable 08/14/20 04:25 Toxic Granulation Not Reportable 08/14/20 04:25 Toxic Vacuolation Not Reportable 08/14/20 04:25 Dohle Bodies Not Reportable 08/14/20 04:25 Pelger-Huet Anomaly Not Reportable 08/14/20 04:25 Amrit Rods Not Reportable 08/14/20 04:25 Platelet Estimate Consistent w auto 08/14/20 04:25 Clumped Platelets Not Reportable 08/14/20 04:25 Plt Clumps, EDTA Not Reportable 08/14/20 04:25 Large Platelets Not Reportable 08/14/20 04:25 Giant Platelets Not Reportable 08/14/20 04:25 Platelet Satelliting Not Reportable 08/14/20 04:25 Plt Morphology Comment Not Reportable 08/14/20 04:25 RBC Morphology Normal 08/14/20 04:25 Dimorphic RBCs Not Reportable 08/14/20 04:25 Polychromasia Not Reportable 08/14/20 04:25 Hypochromasia Not Reportable 08/14/20 04:25 Poikilocytosis Not Reportable 08/14/20 04:25 Anisocytosis Not Reportable 08/14/20 04:25 Microcytosis Not Reportable 08/14/20 04:25 Macrocytosis Not Reportable 08/14/20 04:25 Spherocytes Not Reportable 08/14/20 04:25 Pappenheimer Bodies Not Reportable 08/14/20 04:25 Sickle Cells Not Reportable 08/14/20 04:25 Target Cells Not Reportable 08/14/20 04:25 Tear Drop Cells Not Reportable 08/14/20 04:25 Ovalocytes Not Reportable 08/14/20 04:25 Helmet Cells Not Reportable 08/14/20 04:25 Andersen-Cobalt Bodies Not Reportable 08/14/20 04:25 Spearman Rings Not Reportable 08/14/20 04:25 Anita Cells Not Reportable 08/14/20 04:25 Bite Cells Not Reportable 08/14/20 04:25 Crenated Cell Not Reportable 08/14/20 04:25 Elliptocytes Not Reportable 08/14/20 04:25 Acanthocytes (Spur) Not Reportable 08/14/20 04:25 Rouleaux Not Reportable 08/14/20 04:25 Hemoglobin C Crystals Not Reportable 08/14/20 04:25 Schistocytes Not Reportable 08/14/20 04:25 Malaria parasites Not Reportable 08/14/20 04:25 Oscar Bodies Not Reportable 08/14/20 04:25 Hem Pathologist Commnt No 08/14/20 04:25 PT 17.6 Sec. (12.2-14.9) H 08/10/20 Unknown INR 1.38 (0.87-1.13) H 08/10/20 Unknown APTT 33.0 Sec. (24.2-36.6) 08/10/20 08:56 D-Dimer 4279.32 ng/mlDDU (0-234) H 08/10/20 08:56 Sodium 136 mmol/L (137-145) L 08/18/20 04:28 Potassium 3.8 mmol/L (3.6-5.0) 08/18/20 04:28 Chloride 102.4 mmol/L (98-107) 08/18/20 04:28 Carbon Dioxide 26 mmol/L (22-30) 08/18/20 04:28 Anion Gap 11 mmol/L 08/18/20 04:28 BUN 16 mg/dL (9-20) 08/18/20 04:28 Creatinine 0.5 mg/dL (0.8-1.3) L 08/18/20 04:28 Estimated GFR > 60 ml/min 08/18/20 04:28 BUN/Creatinine Ratio 32 % 08/18/20 04:28 Glucose 101 mg/dL (75-100) H 08/18/20 04:28 POC Glucose 87 mg/dL (70-105) 08/18/20 06:27 Lactic Acid 1.70 mmol/L (0.7-2.0) 08/11/20 06:31 Calcium 8.2 mg/dL (8.4-10.2) L 08/18/20 04:28 Phosphorus 2.80 mg/dL (2.5-4.5) 08/18/20 04:28 Magnesium 1.80 mg/dL (1.7-2.3) 08/18/20 04:28 Ferritin 429.8 ng/mL (30.0-300.0) H 08/10/20 08:56 Total Bilirubin 0.30 mg/dL (0.1-1.2) 08/16/20 04:13 AST 32 units/L (5-40) 08/16/20 04:13 ALT 21 units/L (7-56) 08/16/20 04:13 Alkaline Phosphatase 38 units/L (35-129) 08/16/20 04:13 Lactate Dehydrogenase 160 units/L (91-180) 08/10/20 08:56 Troponin T < 0.010 ng/mL (0.00-0.029) 08/10/20 08:56 C-Reactive Protein 33.80 mg/dL (0.00-1.30) H 08/10/20 08:56 Total Protein 5.1 g/dL (6.3-8.2) L 08/16/20 04:13 Albumin 2.7 g/dL (3.9-5) L 08/16/20 04:13 Albumin/Globulin Ratio 1.1 % 08/16/20 04:13 Triglycerides 85 mg/dL (2-149) 08/16/20 04:13 Lipase 9 units/L (13-60) L 08/10/20 08:56 Procalcitonin > 200.00 ng/mL (<0.15) 08/10/20 08:56 TSH 3.870 mlU/mL (0.270-4.200) 08/10/20 08:56 Urine Color Yellow (Yellow) 08/10/20 17:39 Urine Turbidity Clear (Clear) 08/10/20 17:39 Urine pH 5.0 (5.0-7.0) 08/10/20 17:39 Ur Specific [place] 1.020 (1.003-1.030) 08/10/20 17:39 Urine Protein <15 mg/dl mg/dL (Negative) 08/10/20 17:39 Urine Glucose (UA) Neg mg/dL (Negative) 08/10/20 17:39 Urine Ketones Neg mg/dL (Negative) 08/10/20 17:39 Urine Blood Sm (Negative) 08/10/20 17:39 Urine Nitrite Neg (Negative) 08/10/20 17:39 Urine Bilirubin Neg (Negative) 08/10/20 17:39 Urine Urobilinogen < 2.0 mg/dL (<2.0) 08/10/20 17:39 Ur Leukocyte Esterase Neg (Negative) 08/10/20 17:39 Urine WBC (Auto) 2.0 /HPF (0.0-6.0) 08/10/20 17:39 Urine RBC (Auto) 2.0 /HPF (0.0-6.0) 08/10/20 17:39 U Epithel Cells (Auto) < 1.0 /HPF (0-13.0) 08/10/20 17:39 Urine Mucus Few /HPF 08/10/20 17:39 Salicylates < 0.3 mg/dL (2.8-20.0) L 08/10/20 08:56 Acetaminophen 5.0 ug/mL (10.0-30.0) L 08/10/20 08:56 Plasma/Serum Alcohol < 0.01 % (0-0.07) 08/10/20 08:56 Coronavirus (PCR) Negative (Negative) 08/10/20 08:19 Blood Type O POSITIVE 08/10/20 08:56 Antibody Screen Negative 08/10/20 08:56 Herrmann/IV: Voiding Method Urinal Active Medications - Current Medications Current Medications: Generic Name Dose Route Start Last Admin Trade Name Freq PRN Reason Stop Dose Admin Albuterol 2.5 mg 08/10/20 11:01 Albuterol 2.5 Mg/3 Ml Nebu IH Q3HRT PRN Shortness Of Breath Bisacodyl 10 mg 08/15/20 18:00 08/17/20 11:58 Bisacodyl 10 Mg Rect Supp NV 10 mg QDAY DARYA Administration Heparin Sodium (Porcine) 5,000 unit 08/11/20 18:00 08/18/20 06:59 Heparin 5,000 Unit/1 Ml Vial SUB-Q 5,000 unit Q12H DARYA Administration Hydromorphone HCl 0.5 mg 08/10/20 16:20 08/17/20 11:58 Hydromorphone 1 Mg/1 Ml Inj IV 0.5 mg Q3H PRN Administration Pain , Severe (7-10) Metronidazole 500 mg in 100 mls @ 100 mls/hr 08/10/20 14:00 08/18/20 06:50 Flagyl 500 Mg/100 Ml IV 08/18/20 13:59 100 mls/hr Q8HR DARYA Administration Protocol Levofloxacin/Dextrose 750 mg in 150 mls @ 100 mls/hr 08/12/20 18:00 08/17/20 18:13 Levaquin 750mg/150ml IV 08/18/20 19:29 100 mls/hr Q24H DARYA Administration Amino Acids/Electrolytes/Dextrose 1,800 mls @ 75 mls/hr 08/17/20 20:00 08/17/20 21:12 Tpn Adult IV 08/18/20 19:59 75 mls/hr DAILY@2000 DARYA Administration Protocol Pantoprazole Sodium 40 mg 08/12/20 10:00 08/17/20 11:30 Pantoprazole 40 Mg Inj IV 40 mg QDAY DARYA Administration Sodium Chloride 10 ml 08/10/20 22:00 08/17/20 21:12 Sodium Chloride 0.9% 10 Ml Flush Syringe IV 10 ml BID DARYA Administration Sodium Chloride 10 ml 08/10/20 11:01 Sodium Chloride 0.9% 10 Ml Flush Syringe IV PRN PRN LINE FLUSH Nutrition/Malnutrition Assess - Dietary Evaluation Nutrition/Malnutrition Findings: Nutrition Notes Start: 08/15/20 12:14 Freq: Status: Active Protocol: Document 08/17/20 09:36 CW (Rec: 08/17/20 10:17 CW [id number]) Nutrition Notes Initial or Follow up Reassessment Current Diagnosis Acute Kidney Injury,Sepsis Other Pertinent Diagnosis PVD, peritonitis, bowel perforation Current Diet TPN Labs/Tests Cl 107.5 Cr 0.6 BG 138 AdjCa 7.42 Pertinent Medications D5NS at 75 ml/hr Ducolax Height 5 ft 7 in Weight 70.307 kg Usual Body Weight 72.72 kg [place] Body Weight (kg) 67.27 BMI 24.3 Intake Prior to Admission Poor Weight change and time frame 3% wt loss in 7 days Weight Status Appropriate Subjective/Other Information PPN day 1 to be intiated. Pt has a peripheral access Percent of energy/protein needs met: 0%/0% Burn Absent Trauma Absent GI Symptoms Other Current % PO Negligible Minimum of two criteria Yes Energy Intake (non-severe) <75% Estimated Energy Requirement >7 days Interpretation of Weight Loss (severe) >2% in 1 week #1 Nutrition Diagnosis Malnutrition Diagnosis Progress(for reassessment Continues documentation) Is patient on ventilator? No Is Patient Ambulatory and/or Out of Bed No REE-([facility]-confined to bed) 3204.494 Calculation Used for Recommendations [facility] Additional Notes Protein: (1.2-1.5g/kg) 84-105g Fluid: 1 ml/kcal or per MD Nutrition Intervention Change Diet Order: Initiate PPN Nutrition Support: PPN at 75 ml/hr.Osm 885; AA 4. 7%, D 6%, lipids Na 75 mEq, K 40 mEq, Ca 5 mEq, phos 10 mmol , Mg 8 mEq, Cl/acetate 0/100, MVI, Thiamine Kcal 1,176 Protein (gm) 84 Carbohydrates (gm) 100 Fat (gm) 50 Fluid (mL) 2,050 Fiber (gm) 0 Goal #1 Start PPN Follow-Up By: 08/18/20 Additional Comments Labs in am, BMP, Mg, Phos
--- NOTE | 2020-08-18 10:58 | Progress Note ---
Assessment and Plan POD#8 s/p sigmoidectomy with hartmans pouch for sigmoid perforation. Afebrile and stable. Pt has post op ileus will await return of bowel function and continue NGT clamping and prn decompression. Will keep close eye on colostomy stoma. Showing improvement in both color and function. Awaiting more gas and stool output. continue PPN due to prolonged return of bowel function. continue ambulation Subjective Date of service: 08/18/20 Narrative: No acute events overnight. Patient denies pain nausea vomiting. Patient continues to have gas from his ostomy but not much stool. Objective Vital Signs - 12hr 08/18/20 08/18/20 08/18/20 00:16 04:00 07:22 Temperature 98.4 F 98.6 F 98.2 F Pulse Rate 62 63 62 Respiratory 18 18 22 Rate Blood Pressure 120/75 Blood Pressure 110/65 107/65 [Left] O2 Sat by Pulse 96 96 99 Oximetry - General physical appearance well developed, no distress, no pain - Respiratory normal expansion, normal respiratory effort - Abdomen soft, not tender, other (incision c/d/i, ostomy less purple. continues to be edemetous. Air in colostomy bag with scant liquid stool.) - Labs 08/14/20 04:25 08/18/20 04:28 Diabetes panel 08/18/20 Range/Units 04:28 Sodium 136 L (137-145) mmol/L Potassium 3.8 (3.6-5.0) mmol/L Chloride 102.4 (98-107) mmol/L Carbon Dioxide 26 (22-30) mmol/L BUN 16 (9-20) mg/dL Creatinine 0.5 L (0.8-1.3) mg/dL Glucose 101 H (75-100) mg/dL Calcium 8.2 L (8.4-10.2) mg/dL Calcium panel 08/18/20 Range/Units 04:28 Calcium 8.2 L (8.4-10.2) mg/dL Phosphorus 2.80 (2.5-4.5) mg/dL Pituitary panel 08/18/20 Range/Units 04:28 Sodium 136 L (137-145) mmol/L Potassium 3.8 (3.6-5.0) mmol/L Chloride 102.4 (98-107) mmol/L Carbon Dioxide 26 (22-30) mmol/L BUN 16 (9-20) mg/dL Creatinine 0.5 L (0.8-1.3) mg/dL Glucose 101 H (75-100) mg/dL Calcium 8.2 L (8.4-10.2) mg/dL Adrenal panel 08/18/20 Range/Units 04:28 Sodium 136 L (137-145) mmol/L Potassium 3.8 (3.6-5.0) mmol/L Chloride 102.4 (98-107) mmol/L Carbon Dioxide 26 (22-30) mmol/L BUN 16 (9-20) mg/dL Creatinine 0.5 L (0.8-1.3) mg/dL Glucose 101 H (75-100) mg/dL Calcium 8.2 L (8.4-10.2) mg/dL
[2020-08-18] MEDS: PANTOPRAZOLE 40 MG INJ IV SCH (12:04)
[2020-08-18] MEDS ORDERED: TOTAL PARENTERAL NUTRITION 2,400 ML IV SCH (20:00)
[2020-08-19 05:02] LABS: Blood Urea Nitrogen 17 mg/dL (9-20); Calcium 8.6 mg/dL (8.4-10.2); Hemolysis Index 5
[2020-08-19 05:19] LABS: BUN/Creatinine Ratio 28
[2020-08-19] MEDS: HEPARIN 5,000 UNIT/1 ML VIAL SUB-Q SCH ×2 (05:27→17:16)
--- NOTE | 2020-08-19 09:32 | Progress Note ---
Assessment and Plan Assessment and plan: 45 year old male presented to ED with a history of peptic ulcer disease presented to ER with two day history of worsening abdominal pain, and coffee ground emesis. CT scan shows free air in the upper part of the abdomen. Pt presented tachycardic and hypotensive. General surgery was consulted in ED. A/P -- Perforated viscus Surgical team consulted in ED, s/p sigmoidectomy with hartmans pouch for sigmoid perforation on 08/10/20. Patient currently n.p.o., continue IV fluid hydration Post op care per general surgeon -- Sepsis likely due to perforated viscus Continue empiric antibiotics, follow culture, IV fluid -- Acute kidney injury (BONY) with acute tubular necrosis (ATN) Likely due to sepsis Continue IV fluid resuscitation therapy, monitor urine output every shift, repeat BMP in a.m. to monitor serum creatinine as well as GFR. -- Metabolic acidosis IV fluid resuscitation therapy, serial lactic acid level, supportive care. --Postoperative ileus Continue n.p.o. status, continue IV fluid, serial abdominal examination, abdominal x-ray in the am --History of peptic ulcer disease, continue Protonix --DVT prophylaxis SCD to bilateral lower extremities while in bed, heparin Daily clinical Course: 08/11/20: POD#1 s/p sigmoidectomy with hartmans pouch for sigmoid perforation. Afebrile and stable. Pt has post op ileus will await return of bowel function and continue NGT decompression. 08/12/20: POD#2 Remains Afebrile and stable. Pt has post op ileus and continue NGT decompression. Keep NPO, cont iv fluid 08/13/20; POD#2 Remains Afebrile and stable. Pt has post op ileus and continue NGT decompression. Keep NPO, cont iv fluid. Transfer to surgical unit. 08/14/2020; postop day 3. Patient afebrile, stable. Patient has postop ileus and no bowel movement, continue with NG tube decompression. Continue with IV fluids. Surgery is following. 08/15/2020; patient did not have any bowel movement. Continue with NG tube decompression. Patient started on PPN. Surgery is following. 08/16/2020; NG tube was clamped. Patient is on PPN. Surgery is following. 08/17/2020; patient is on PPN, no fever or abdominal pain. Surgery is following. 08/18/2020; patient is on PPN. Patient is on IV antibiotics. Surgery is following the patient. 08/19/2020; continue with PPN and IV antibiotics. Surgery is following for further recommendations. History Interval history: Patient was seen and evaluated this morning Patient denied any pain, patient did not have any bowel movement On NG tube decompression Hospitalist Physical - Physical exam Narrative exam: Not in cardiopulmonary distress. The patient appeared well nourished and normally developed. Vital signs as documented. Head exam is unremarkable. No scleral icterus . Neck is without jugular venous distension, thyromegaly, or carotid bruits. Lungs are clear to auscultation. Cardiac exam reveals regular rate and Rhythm. Abdominal exam reveals colostomy, clean midline surgical dressing. Colostomy, the tip of the stoma is dark. Extremities are nonedematous and both femoral and pedal pulses are normal. [place]: Alert and oriented 3. No focal weakness. - Constitutional Vitals: Temp Pulse Resp BP Pulse Ox 98.0 F 79 18 127/61 96 08/19/20 08:00 08/19/20 08:00 08/19/20 08:00 08/19/20 08:00 08/19/20 08:00 HEART Score - HEART Score Troponin: Troponin T < 0.010 ng/mL (0.00-0.029) 08/10/20 08:56 Results - Labs CBC & Chem 7: 08/14/20 04:25 08/19/20 04:17 Labs: Laboratory Last Values WBC 8.6 K/mm3 (4.5-11.0) 08/14/20 04:25 RBC 3.87 M/mm3 (3.65-5.03) 08/14/20 04:25 Hgb 11.6 gm/dl (11.8-15.2) L 08/14/20 04:25 Hct 34.2 % (35.5-45.6) L 08/14/20 04:25 MCV 88 fl (84-94) 08/14/20 04:25 MCH 30 pg (28-32) 08/14/20 04:25 MCHC 34 % (32-34) 08/14/20 04:25 RDW 14.2 % (13.2-15.2) 08/14/20 04:25 Plt Count 212 K/mm3 (140-440) 08/14/20 04:25 Lymph % (Auto) 14.8 % (13.4-35.0) 08/13/20 05:55 [place] % (Auto) 7.9 % (0.0-7.3) H 08/13/20 05:55 Eos % (Auto) 1.5 % (0.0-4.3) 08/13/20 05:55 Baso % (Auto) 0.1 % (0.0-1.8) 08/13/20 05:55 Lymph # (Auto) 1.1 K/mm3 (1.2-5.4) L 08/13/20 05:55 [place] # (Auto) 0.6 K/mm3 (0.0-0.8) 08/13/20 05:55 Eos # (Auto) 0.1 K/mm3 (0.0-0.4) 08/13/20 05:55 Baso # (Auto) 0.0 K/mm3 (0.0-0.1) 08/13/20 05:55 Add Manual Diff Complete 08/14/20 04:25 Total Counted 100 08/14/20 04:25 Seg Neutrophils % 75.7 % (40.0-70.0) H 08/13/20 05:55 Seg Neuts % (Manual) 84.0 % (40.0-70.0) H 08/14/20 04:25 Band Neutrophils % 1.0 % 08/14/20 04:25 Lymphocytes % (Manual) 8.0 % (13.4-35.0) L 08/14/20 04:25 Monocytes % (Manual) 5.0 % (0.0-7.3) 08/14/20 04:25 Eosinophils % (Manual) 2.0 % (0.0-4.3) 08/14/20 04:25 Metamyelocytes % 1.0 % 08/10/20 08:56 Nucleated RBC % Not Reportable 08/14/20 04:25 Seg Neutrophils # 5.6 K/mm3 (1.8-7.7) 08/13/20 05:55 Seg Neutrophils # Man 7.2 K/mm3 (1.8-7.7) 08/14/20 04:25 Band Neutrophils # 0.1 K/mm3 08/14/20 04:25 Lymphocytes # (Manual) 0.7 K/mm3 (1.2-5.4) L 08/14/20 04:25 Abs React Lymphs (Man) 0.0 K/mm3 08/14/20 04:25 Monocytes # (Manual) 0.4 K/mm3 (0.0-0.8) 08/14/20 04:25 Eosinophils # (Manual) 0.2 K/mm3 (0.0-0.4) 08/14/20 04:25 Basophils # (Manual) 0.0 K/mm3 (0.0-0.1) 08/14/20 04:25 Metamyelocytes # 0.0 K/mm3 08/14/20 04:25 Myelocytes # 0.0 K/mm3 08/14/20 04:25 Promyelocytes # 0.0 K/mm3 08/14/20 04:25 Blast Cells # 0.0 K/mm3 08/14/20 04:25 WBC Morphology Not Reportable 08/14/20 04:25 Hypersegmented Neuts Not Reportable 08/14/20 04:25 Hyposegmented Neuts Not Reportable 08/14/20 04:25 Hypogranular Neuts Not Reportable 08/14/20 04:25 Smudge Cells Not Reportable 08/14/20 04:25 Toxic Granulation Not Reportable 08/14/20 04:25 Toxic Vacuolation Not Reportable 08/14/20 04:25 Dohle Bodies Not Reportable 08/14/20 04:25 Pelger-Huet Anomaly Not Reportable 08/14/20 04:25 Amrit Rods Not Reportable 08/14/20 04:25 Platelet Estimate Consistent w auto 08/14/20 04:25 Clumped Platelets Not Reportable 08/14/20 04:25 Plt Clumps, EDTA Not Reportable 08/14/20 04:25 Large Platelets Not Reportable 08/14/20 04:25 Giant Platelets Not Reportable 08/14/20 04:25 Platelet Satelliting Not Reportable 08/14/20 04:25 Plt Morphology Comment Not Reportable 08/14/20 04:25 RBC Morphology Normal 08/14/20 04:25 Dimorphic RBCs Not Reportable 08/14/20 04:25 Polychromasia Not Reportable 08/14/20 04:25 Hypochromasia Not Reportable 08/14/20 04:25 Poikilocytosis Not Reportable 08/14/20 04:25 Anisocytosis Not Reportable 08/14/20 04:25 Microcytosis Not Reportable 08/14/20 04:25 Macrocytosis Not Reportable 08/14/20 04:25 Spherocytes Not Reportable 08/14/20 04:25 Pappenheimer Bodies Not Reportable 08/14/20 04:25 Sickle Cells Not Reportable 08/14/20 04:25 Target Cells Not Reportable 08/14/20 04:25 Tear Drop Cells Not Reportable 08/14/20 04:25 Ovalocytes Not Reportable 08/14/20 04:25 Helmet Cells Not Reportable 08/14/20 04:25 [place] Bodies Not Reportable 08/14/20 04:25 [place] Rings Not Reportable 08/14/20 04:25 Anita Cells Not Reportable 08/14/20 04:25 Bite Cells Not Reportable 08/14/20 04:25 Crenated Cell Not Reportable 08/14/20 04:25 Elliptocytes Not Reportable 08/14/20 04:25 Acanthocytes (Spur) Not Reportable 08/14/20 04:25 Rouleaux Not Reportable 08/14/20 04:25 Hemoglobin C Crystals Not Reportable 08/14/20 04:25 Schistocytes Not Reportable 08/14/20 04:25 Malaria parasites Not Reportable 08/14/20 04:25 Oscar Bodies Not Reportable 08/14/20 04:25 Hem Pathologist Commnt No 08/14/20 04:25 PT 17.6 Sec. (12.2-14.9) H 08/10/20 Unknown INR 1.38 (0.87-1.13) H 08/10/20 Unknown APTT 33.0 Sec. (24.2-36.6) 08/10/20 08:56 D-Dimer 4279.32 ng/mlDDU (0-234) H 08/10/20 08:56 Sodium 135 mmol/L (137-145) L 08/19/20 04:17 Potassium 4.0 mmol/L (3.6-5.0) 08/19/20 04:17 Chloride 99.8 mmol/L (98-107) 08/19/20 04:17 Carbon Dioxide 28 mmol/L (22-30) 08/19/20 04:17 Anion Gap 11 mmol/L 08/19/20 04:17 BUN 17 mg/dL (9-20) 08/19/20 04:17 Creatinine 0.6 mg/dL (0.8-1.3) L 08/19/20 04:17 Estimated GFR > 60 ml/min 08/19/20 04:17 BUN/Creatinine Ratio 28 % 08/19/20 04:17 Glucose 102 mg/dL (75-100) H 08/19/20 04:17 POC Glucose 102 mg/dL (70-105) 08/19/20 05:32 Lactic Acid 1.70 mmol/L (0.7-2.0) 08/11/20 06:31 Calcium 8.6 mg/dL (8.4-10.2) 08/19/20 04:17 Phosphorus 3.60 mg/dL (2.5-4.5) D 08/19/20 04:17 Magnesium 1.90 mg/dL (1.7-2.3) 08/19/20 04:17 Ferritin 429.8 ng/mL (30.0-300.0) H 08/10/20 08:56 Total Bilirubin 0.30 mg/dL (0.1-1.2) 08/16/20 04:13 AST 32 units/L (5-40) 08/16/20 04:13 ALT 21 units/L (7-56) 08/16/20 04:13 Alkaline Phosphatase 38 units/L (35-129) 08/16/20 04:13 Lactate Dehydrogenase 160 units/L (91-180) 08/10/20 08:56 Troponin T < 0.010 ng/mL (0.00-0.029) 08/10/20 08:56 C-Reactive Protein 33.80 mg/dL (0.00-1.30) H 08/10/20 08:56 Total Protein 5.1 g/dL (6.3-8.2) L 08/16/20 04:13 Albumin 2.7 g/dL (3.9-5) L 08/16/20 04:13 Albumin/Globulin Ratio 1.1 % 08/16/20 04:13 Triglycerides 85 mg/dL (2-149) 08/16/20 04:13 Lipase 9 units/L (13-60) L 08/10/20 08:56 Procalcitonin > 200.00 ng/mL (<0.15) 08/10/20 08:56 TSH 3.870 mlU/mL (0.270-4.200) 08/10/20 08:56 Urine Color Yellow (Yellow) 08/10/20 17:39 Urine Turbidity Clear (Clear) 08/10/20 17:39 Urine pH 5.0 (5.0-7.0) 08/10/20 17:39 Ur Specific [place] 1.020 (1.003-1.030) 08/10/20 17:39 Urine Protein <15 mg/dl mg/dL (Negative) 08/10/20 17:39 Urine Glucose (UA) Neg mg/dL (Negative) 08/10/20 17:39 Urine Ketones Neg mg/dL (Negative) 08/10/20 17:39 Urine Blood Sm (Negative) 08/10/20 17:39 Urine Nitrite Neg (Negative) 08/10/20 17:39 Urine Bilirubin Neg (Negative) 08/10/20 17:39 Urine Urobilinogen < 2.0 mg/dL (<2.0) 08/10/20 17:39 Ur Leukocyte Esterase Neg (Negative) 08/10/20 17:39 Urine WBC (Auto) 2.0 /HPF (0.0-6.0) 08/10/20 17:39 Urine RBC (Auto) 2.0 /HPF (0.0-6.0) 08/10/20 17:39 U Epithel Cells (Auto) < 1.0 /HPF (0-13.0) 08/10/20 17:39 Urine Mucus Few /HPF 08/10/20 17:39 Salicylates < 0.3 mg/dL (2.8-20.0) L 08/10/20 08:56 Acetaminophen 5.0 ug/mL (10.0-30.0) L 08/10/20 08:56 Plasma/Serum Alcohol < 0.01 % (0-0.07) 08/10/20 08:56 Coronavirus (PCR) Negative (Negative) 08/10/20 08:19 Blood Type O POSITIVE 08/10/20 08:56 Antibody Screen Negative 08/10/20 08:56 Herrmann/IV: Voiding Method Urinal Active Medications - Current Medications Current Medications: Generic Name Dose Route Start Last Admin Trade Name Freq PRN Reason Stop Dose Admin Albuterol 2.5 mg 08/10/20 11:01 Albuterol 2.5 Mg/3 Ml Nebu IH Q3HRT PRN Shortness Of Breath Bisacodyl 10 mg 08/15/20 18:00 08/18/20 12:04 Bisacodyl 10 Mg Rect Supp ID 10 mg QDAY DARYA Administration Heparin Sodium (Porcine) 5,000 unit 08/11/20 18:00 08/19/20 05:27 Heparin 5,000 Unit/1 Ml Vial SUB-Q 5,000 unit Q12H DARYA Administration Hydromorphone HCl 0.5 mg 08/10/20 16:20 08/17/20 11:58 Hydromorphone 1 Mg/1 Ml Inj IV 0.5 mg Q3H PRN Administration Pain , Severe (7-10) Amino Acids/Electrolytes/Dextrose 2,400 mls @ 100 mls/hr 08/18/20 20:00 08/18/20 20:16 Tpn Adult IV 08/19/20 19:59 100 mls/hr DAILY@2000 DARYA Administration Protocol Pantoprazole Sodium 40 mg 08/12/20 10:00 08/18/20 12:04 Pantoprazole 40 Mg Inj IV 40 mg QDAY DARYA Administration Sodium Chloride 10 ml 08/10/20 22:00 08/18/20 21:44 Sodium Chloride 0.9% 10 Ml Flush Syringe IV 10 ml BID DARYA Administration Sodium Chloride 10 ml 08/10/20 11:01 Sodium Chloride 0.9% 10 Ml Flush Syringe IV PRN PRN LINE FLUSH Nutrition/Malnutrition Assess - Dietary Evaluation Nutrition/Malnutrition Findings: Nutrition Notes Start: 08/15/20 12:14 Freq: Status: Active Protocol: Document 08/18/20 09:30 ANTHONY (Rec: 08/18/20 09:36 ANTHONY [id number]) Nutrition Notes Initial or Follow up Reassessment Current Diagnosis Acute Kidney Injury,Sepsis Other Pertinent Diagnosis Perforated viscus s/p sigmoidectomy, post-op ileus Current Diet PPN at 84ml/hr Labs/Tests Na 136 Pertinent Medications Reviewed Height 5 ft 7 in Weight 70.307 kg [place] Body Weight (kg) 67.27 BMI 24.3 Weight Status Appropriate Subjective/Other Information Day 2 PPN. No BM in colostomy yet. Percent of energy/protein needs met: 63% energy 100% pro Burn Absent Trauma Absent #1 Nutrition Diagnosis Malnutrition Diagnosis Progress(for reassessment Continues documentation) Is patient on ventilator? Yes Is Patient Ambulatory and/or Out of Bed No REE-([facility]-confined to bed) 0730.603 Calculation Used for Recommendations [facility] Additional Notes Protein: (1.2-1.5g/kg) 84-105g Fluid: 1 ml/kcal or per MD Nutrition Intervention Nutrition Support: Increase PPN rate to 100ml/hr: MVI, thiamine, 3.5% amino acids, 6.3% dextrose, 100mEq Na, 20mmol Phos, 10mEq Mg. Osmolality: 791. Kcal 846 Protein (gm) 84 Carbohydrates (gm) 150 Fat (gm) 0 Fluid (mL) 2,400 Fiber (gm) 0 Goal #1 PPN to meet nutrient needs as best possible Follow-Up By: 08/19/20 Additional Comments Labs in am: BMP, Mg, Phos Assess iv access
--- NOTE | 2020-08-19 11:00 | Progress Note ---
Assessment and Plan Severe sepsis Perforated abdominal viscus Peritonitis History of substance abuse Leukocytosis Hemoconcentration Mild hyponatremia Lactic acidosis Continue all care as below -Incentive spirometry, airway clearance - continue [facility] protocol for alcohol withdrawal -Wound and ostomy care per RN/WCT - avoid nephrotoxins, dose all medications for GFR and CrCL -Supportive transfusions as clinically indicated, keep HgB >7g/dL -Electrolyte replacement, keep K at 4, Mag at 2, Phos at 2.5 -Continue with TPN -Antibiotics- Levofloxacin/Metronidazole - PT/OT , increase activity - continue accuchecks with glycemic control per SSI for target blood glucose < 180 mg/dL -VTE prophylaxis - prn analgesia per pain score Timing of enteric nutritional support per General Surgery Subjective Date of service: 08/19/20 Principal diagnosis: Severe sepsis; Perforated Abd. viscus; Peritonitis; Lactic acidosis Interval history: Patient is seen today for: Severe sepsis; Perforated abdominal viscus; Peritonitis; H/O substance abuse; Mild hyponatremia; Lactic acidosis Seen and examined at bedside; 24hour events reviewed; nursing and respiratory care staff consulted; no adverse overnight events reported to me; restring peacefully in bed; NGT to LIS, denies any chest pain, no shortness of breath, no fevers, no chills,no fevers. Objective Vital Signs - 12hr 08/18/20 08/19/20 08/19/20 23:05 05:30 08:00 Temperature 99.0 F 98.2 F 98.0 F Pulse Rate 73 64 79 Respiratory 18 18 18 Rate Blood Pressure 110/65 98/59 Blood Pressure 127/61 [Left] O2 Sat by Pulse 95 96 96 Oximetry Constitutional: no acute distress, alert Eyes: non-icteric ENT: oropharynx moist, other (NGT) Neck: supple, no lymphadenopathy, no JVD Effort: normal Ascultation: Bilateral: clear, diminished breath sounds (bases) Percussion: Bilateral: not dull Cardiovascular: regular rate and rhythm, other (S1,S2) Gastrointestinal: normoactive bowel sounds, soft, non-tender, non-distended, other (colostomy in place, midline dressing) Integumentary: normal, other (post-op changes) Extremities: no cyanosis, no edema, pink and warm, pulses normal Neurologic: non-focal exam, pupils equal and round, CN II-XII normal, motor strength normal and Psychiatric: mood appropriate, affect normal CBC and BMP: 08/14/20 04:25 08/20/20 04:07 ABG, PT/INR, D-dimer: PT/INR, D-dimer PT 17.6 Sec. (12.2-14.9) H 08/10/20 Unknown INR 1.38 (0.87-1.13) H 08/10/20 Unknown D-Dimer 4279.32 ng/mlDDU (0-234) H 08/10/20 08:56 Abnormal lab findings: Abnormal Labs 08/10/20 08/10/20 08/10/20 08:56 08:56 08:56 WBC 17.8 H RBC 5.31 H Hgb 16.0 H Hct 47.5 H Lymph % (Auto) [place] % (Auto) Lymph # (Auto) Seg Neutrophils % Seg Neuts % (Manual) 73.0 H Lymphocytes % (Manual) 4.0 L Monocytes % (Manual) 8.0 H Seg Neutrophils # Man 13.0 H Lymphocytes # (Manual) 0.7 L Monocytes # (Manual) 1.4 H PT INR D-Dimer 4279.32 H Sodium 135 L Chloride 94.4 L BUN 56 H Creatinine 3.2 H Glucose 153 H POC Glucose Lactic Acid Calcium Ferritin C-Reactive Protein 33.80 H Total Protein 5.9 L Albumin 3.3 L Lipase Salicylates Acetaminophen 08/10/20 08/10/20 08/10/20 08:56 08:56 08:56 WBC RBC Hgb Hct Lymph % (Auto) [place] % (Auto) Lymph # (Auto) Seg Neutrophils % Seg Neuts % (Manual) Lymphocytes % (Manual) Monocytes % (Manual) Seg Neutrophils # Man Lymphocytes # (Manual) Monocytes # (Manual) PT INR D-Dimer Sodium Chloride BUN Creatinine Glucose POC Glucose Lactic Acid 4.20 H* Calcium Ferritin 429.8 H C-Reactive Protein Total Protein Albumin Lipase Salicylates < 0.3 L Acetaminophen 08/10/20 08/10/20 08/10/20 08:56 08:56 22:55 WBC RBC Hgb Hct Lymph % (Auto) [place] % (Auto) Lymph # (Auto) Seg Neutrophils % Seg Neuts % (Manual) Lymphocytes % (Manual) Monocytes % (Manual) Seg Neutrophils # Man Lymphocytes # (Manual) Monocytes # (Manual) PT INR D-Dimer Sodium Chloride BUN Creatinine Glucose POC Glucose Lactic Acid 2.70 H* Calcium Ferritin C-Reactive Protein Total Protein Albumin Lipase 9 L Salicylates Acetaminophen 5.0 L 08/10/20 08/10/20 08/11/20 Unknown Unknown 08:17 WBC RBC Hgb Hct Lymph % (Auto) [place] % (Auto) Lymph # (Auto) Seg Neutrophils % Seg Neuts % (Manual) Lymphocytes % (Manual) Monocytes % (Manual) Seg Neutrophils # Man Lymphocytes # (Manual) Monocytes # (Manual) PT 17.6 H INR 1.38 H D-Dimer Sodium 135 L Chloride 97.7 L BUN 65 H Creatinine 1.6 H Glucose 126 H POC Glucose Lactic Acid 4.30 H* Calcium 7.9 L Ferritin C-Reactive Protein Total Protein Albumin Lipase Salicylates Acetaminophen 08/12/20 08/12/20 08/13/20 05:56 05:56 05:55 WBC RBC 3.59 L Hgb 11.5 L 10.8 L Hct 33.6 L D 31.9 L Lymph % (Auto) 9.0 L [place] % (Auto) 7.9 H Lymph # (Auto) 0.7 L 1.1 L Seg Neutrophils % 83.8 H 75.7 H Seg Neuts % (Manual) Lymphocytes % (Manual) Monocytes % (Manual) Seg Neutrophils # Man Lymphocytes # (Manual) Monocytes # (Manual) PT INR D-Dimer Sodium Chloride 107.3 H BUN 40 H Creatinine Glucose 108 H POC Glucose Lactic Acid Calcium 8.1 L Ferritin C-Reactive Protein Total Protein Albumin Lipase Salicylates Acetaminophen 08/13/20 08/14/20 08/14/20 05:55 04:25 04:25 WBC RBC Hgb 11.6 L Hct 34.2 L Lymph % (Auto) [place] % (Auto) Lymph # (Auto) Seg Neutrophils % Seg Neuts % (Manual) 84.0 H Lymphocytes % (Manual) 8.0 L Monocytes % (Manual) Seg Neutrophils # Man Lymphocytes # (Manual) 0.7 L Monocytes # (Manual) PT INR D-Dimer Sodium 136 L Chloride BUN 22 H Creatinine 0.6 L 0.6 L Glucose 103 H POC Glucose Lactic Acid Calcium 7.7 L 8.0 L Ferritin C-Reactive Protein Total Protein Albumin Lipase Salicylates Acetaminophen 08/16/20 08/17/20 08/18/20 04:13 07:12 00:06 WBC RBC Hgb Hct Lymph % (Auto) [place] % (Auto) Lymph # (Auto) Seg Neutrophils % Seg Neuts % (Manual) Lymphocytes % (Manual) Monocytes % (Manual) Seg Neutrophils # Man Lymphocytes # (Manual) Monocytes # (Manual) PT INR D-Dimer Sodium Chloride 110.0 H 107.5 H BUN Creatinine 0.6 L 0.6 L Glucose 138 H POC Glucose 113 H Lactic Acid Calcium 8.2 L 8.3 L Ferritin C-Reactive Protein Total Protein 5.1 L Albumin 2.7 L Lipase Salicylates Acetaminophen 08/18/20 08/18/20 08/18/20 04:28 11:14 17:39 WBC RBC Hgb Hct Lymph % (Auto) [place] % (Auto) Lymph # (Auto) Seg Neutrophils % Seg Neuts % (Manual) Lymphocytes % (Manual) Monocytes % (Manual) Seg Neutrophils # Man Lymphocytes # (Manual) Monocytes # (Manual) PT INR D-Dimer Sodium 136 L Chloride BUN Creatinine 0.5 L Glucose 101 H POC Glucose 119 H 112 H Lactic Acid Calcium 8.2 L Ferritin C-Reactive Protein Total Protein Albumin Lipase Salicylates Acetaminophen 08/19/20 04:17 WBC RBC Hgb Hct Lymph % (Auto) [place] % (Auto) Lymph # (Auto) Seg Neutrophils % Seg Neuts % (Manual) Lymphocytes % (Manual) Monocytes % (Manual) Seg Neutrophils # Man Lymphocytes # (Manual) Monocytes # (Manual) PT INR D-Dimer Sodium 135 L Chloride BUN Creatinine 0.6 L Glucose 102 H POC Glucose Lactic Acid Calcium Ferritin C-Reactive Protein Total Protein Albumin Lipase Salicylates Acetaminophen Allied health notes reviewed: nursing
[2020-08-19] MEDS: PANTOPRAZOLE 40 MG INJ IV SCH (11:38)
--- NOTE | 2020-08-19 12:18 | Progress Note ---
Assessment and Plan POD#9 s/p sigmoidectomy with hartmans pouch for sigmoid perforation. Afebrile and stable. Pt showing signs if improving bowel and ostomy function. Will keep close eye on colostomy stoma. Awaiting more gas and stool output. continue PPN due to prolonged return of bowel function. will start trial of clear liquids continue ambulation Subjective Date of service: 08/19/20 Narrative: No acute events overnight. Patient's NG tube fell out yesterday patient denies any nausea or vomiting. Pain is controlled. Patient continues to have gas and increase in liquid stool in bag although still small amount. Patient says he is ambulating without difficulty. Objective Vital Signs - 12hr 08/19/20 08/19/20 05:30 08:00 Temperature 98.2 F 98.0 F Pulse Rate 64 79 Respiratory 18 18 Rate Blood Pressure 98/59 Blood Pressure 127/61 [Left] O2 Sat by Pulse 96 96 Oximetry - General physical appearance well developed, no distress, no pain - Respiratory normal expansion, normal respiratory effort - Abdomen soft, not tender, other (ostomy becoming more pink, continues to be swollen, air and small amount of liquid stool in bag, midline incision c/d/i) - Labs 08/14/20 04:25 08/19/20 04:17 Diabetes panel 08/19/20 Range/Units 04:17 Sodium 135 L (137-145) mmol/L Potassium 4.0 (3.6-5.0) mmol/L Chloride 99.8 (98-107) mmol/L Carbon Dioxide 28 (22-30) mmol/L BUN 17 (9-20) mg/dL Creatinine 0.6 L (0.8-1.3) mg/dL Glucose 102 H (75-100) mg/dL Calcium 8.6 (8.4-10.2) mg/dL Calcium panel 08/19/20 Range/Units 04:17 Calcium 8.6 (8.4-10.2) mg/dL Phosphorus 3.60 D (2.5-4.5) mg/dL Pituitary panel 08/19/20 Range/Units 04:17 Sodium 135 L (137-145) mmol/L Potassium 4.0 (3.6-5.0) mmol/L Chloride 99.8 (98-107) mmol/L Carbon Dioxide 28 (22-30) mmol/L BUN 17 (9-20) mg/dL Creatinine 0.6 L (0.8-1.3) mg/dL Glucose 102 H (75-100) mg/dL Calcium 8.6 (8.4-10.2) mg/dL Adrenal panel 08/19/20 Range/Units 04:17 Sodium 135 L (137-145) mmol/L Potassium 4.0 (3.6-5.0) mmol/L Chloride 99.8 (98-107) mmol/L Carbon Dioxide 28 (22-30) mmol/L BUN 17 (9-20) mg/dL Creatinine 0.6 L (0.8-1.3) mg/dL Glucose 102 H (75-100) mg/dL Calcium 8.6 (8.4-10.2) mg/dL
[2020-08-19] MEDS ORDERED: TOTAL PARENTERAL NUTRITION 2,400 ML IV SCH (20:00)
[2020-08-20 05:13] LABS: Blood Urea Nitrogen 16 mg/dL (9-20); Calcium 8.3 mg/dL (8.4-10.2); Hemolysis Index 5
[2020-08-20 05:17] LABS: BUN/Creatinine Ratio 27
[2020-08-20] MEDS: HEPARIN 5,000 UNIT/1 ML VIAL SUB-Q SCH ×2 (06:00→19:09)
[2020-08-20] MEDS ORDERED: oxyCODONE /ACETAMINOPHEN 5-325MG TAB PO PRN (11:49)
--- NOTE | 2020-08-20 11:52 | Progress Note ---
Assessment and Plan POD#10 s/p sigmoidectomy with hartmans pouch for sigmoid perforation. Afebrile and stable. Pt showing signs of much better ostomy function. can d/c PPN when eating more. will advance diet to full liquids. Pt and family needs ostomy teaching. Will reach out to ostomy nurse. [place] can be discharged in the next 24-48 hours. continue ambulation Subjective Date of service: 08/20/20 Narrative: Since yesterday patient has had large stool volumes and air out of his c olostomy. Patient continues to deny nausea vomiting is tolerating clear liquids. Pain is controlled. Objective Vital Signs - 12hr 08/20/20 08/20/20 05:15 07:28 Temperature 98.5 F 97.6 F Pulse Rate 68 68 Respiratory 18 16 Rate Blood Pressure 105/60 98/58 O2 Sat by Pulse 95 97 Oximetry - General physical appearance well developed, no distress, no pain - Respiratory normal expansion, normal respiratory effort - Abdomen soft, not tender, other (ostomy congested in color, edematous. significant amount of stool in bag. ) - Labs 08/14/20 04:25 08/20/20 04:07 Diabetes panel 08/20/20 Range/Units 04:07 Sodium 138 (137-145) mmol/L Potassium 4.4 (3.6-5.0) mmol/L Chloride 101.7 (98-107) mmol/L Carbon Dioxide 27 (22-30) mmol/L BUN 16 (9-20) mg/dL Creatinine 0.6 L (0.8-1.3) mg/dL Glucose 125 H (75-100) mg/dL Calcium 8.3 L (8.4-10.2) mg/dL Calcium panel 08/20/20 Range/Units 04:07 Calcium 8.3 L (8.4-10.2) mg/dL Phosphorus 3.60 (2.5-4.5) mg/dL Pituitary panel 08/20/20 Range/Units 04:07 Sodium 138 (137-145) mmol/L Potassium 4.4 (3.6-5.0) mmol/L Chloride 101.7 (98-107) mmol/L Carbon Dioxide 27 (22-30) mmol/L BUN 16 (9-20) mg/dL Creatinine 0.6 L (0.8-1.3) mg/dL Glucose 125 H (75-100) mg/dL Calcium 8.3 L (8.4-10.2) mg/dL Adrenal panel 08/20/20 Range/Units 04:07 Sodium 138 (137-145) mmol/L Potassium 4.4 (3.6-5.0) mmol/L Chloride 101.7 (98-107) mmol/L Carbon Dioxide 27 (22-30) mmol/L BUN 16 (9-20) mg/dL Creatinine 0.6 L (0.8-1.3) mg/dL Glucose 125 H (75-100) mg/dL Calcium 8.3 L (8.4-10.2) mg/dL
[2020-08-20] MEDS: PANTOPRAZOLE 40 MG INJ IV SCH (12:12)
--- NOTE | 2020-08-20 14:05 | Progress Note ---
Assessment and Plan 45 year old male presented to ED with a history of peptic ulcer disease presented to ER with two day history of worsening abdominal pain, and coffee ground emesis. CT scan shows free air in the upper part of the abdomen. Pt presented tachycardic and hypotensive. General surgery was consulted. Patient has perforated viscous. Patient undergone sigmoidectomy. Patient also developed peritonitis and sepsis. Patient is on Levaquin and metronidazole. Patient alert, awake. denies chest pain, shortness of breath or cough. Patient resting on room air. O2 saturation 97%. Patient has no history of smoking, alcohol or drug abuse. 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 No known drug allergies. Patient is in surgical floor. Patient Awake. Resting on room air. No acute respiratory distress. O2 saturation 97%. Denies chest pain, abdominal pain or shortness of breath. Patient afebrile. Blood pressure 108/63. No Leukocytosis Chest xray 08/10/20 reported no acute process. CT scan of chest done 08/10/20 reported HEART: No significant abnormality. THORACIC AORTA AND ARTERIES: No significant abnormality. MEDIASTINUM and JANE: No mass or lymphadenopathy. The esophagus is fluid-filled and moderately distended. The trachea and main bronchi are patent and normal in caliber. LUNGS: There is mild dependent bilateral atelectasis without other significant abnormalities. PLEURA: No significant pleural effusion. No pneumothorax Patient on TPN. Patient started on liquid diet. Patient is on S/C Heparin, Protonix. Continue incentive spirometry. - Patient Problems (1) Acute kidney injury (BONY) with acute tubular necrosis (ATN) Current Visit: Yes Status: Acute Plan to address problem: Management as per nephrology. (2) Perforated abdominal viscus Current Visit: Yes Status: Acute Plan to address problem: Patient S/P sigmoidectomy. (3) Peritonitis Current Visit: Yes Status: Acute Plan to address problem: Patient was on Levaquin and Metronidazole. (4) Severe sepsis Current Visit: Yes Status: Acute Plan to address problem: Patient was on Levaquin and metronidazole. Subjective Date of service: 08/20/20 Principal diagnosis: Severe sepsis; Perforated Abd. viscus; Peritonitis; Lactic acidosis Interval history: 45 year old male presented to ED with a history of peptic ulcer disease presented to ER with two day history of worsening abdominal pain, and coffee ground emesis. CT scan shows free air in the upper part of the abdomen. Pt presented tachycardic and hypotensive. General surgery was consulted. Patient has perforated viscous. Patient undergone sigmoidectomy. Patient also developed peritonitis and sepsis. Patient is on Levaquin and metronidazole. Patient alert, awake. denies chest pain, shortness of breath or cough. Patient resting on room air. O2 saturation 97%. Patient has no history of smoking, alcohol or drug abuse. 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 No known drug allergies. Patient is in surgical floor. Patient Awake. Resting on room air. No acute respiratory distress. O2 saturation 97%. Denies chest pain, abdominal pain or shortness of breath. Patient afebrile. Blood pressure 108/63. No Leukocytosis Chest xray 08/10/20 reported no acute process. CT scan of chest done 08/10/20 reported HEART: No significant abnormality. THORACIC AORTA AND ARTERIES: No significant abnormality. MEDIASTINUM and JANE: No mass or lymphadenopathy. The esophagus is fluid-filled and moderately distended. The trachea and main bronchi are patent and normal in caliber. LUNGS: There is mild dependent bilateral atelectasis without other significant abnormalities. PLEURA: No significant pleural effusion. No pneumothorax Patient on TPN. Patient started on liquid diet. Patient is on S/C Heparin, Protonix. Continue incentive spirometry. Objective Vital Signs - 12hr 08/20/20 08/20/20 08/20/20 05:15 07:28 11:28 Temperature 98.5 F 97.6 F 98.2 F Pulse Rate 68 68 70 Respiratory 18 16 16 Rate Blood Pressure 105/60 98/58 95/56 O2 Sat by Pulse 95 97 96 Oximetry Constitutional: no acute distress, alert Eyes: non-icteric ENT: oropharynx moist, other (NGT) Neck: supple, no lymphadenopathy, no JVD Effort: normal Ascultation: Bilateral: diminished breath sounds (bases) Percussion: Bilateral: not dull Cardiovascular: regular rate and rhythm, other (S1,S2) Gastrointestinal: normoactive bowel sounds, soft, non-tender, non-distended, other (colostomy in place, midline dressing) Integumentary: normal, other (post-op changes) Extremities: no cyanosis, no edema, pink and warm, pulses normal Neurologic: non-focal exam, pupils equal and round, CN II-XII normal, motor strength normal and Psychiatric: mood appropriate, affect normal CBC and BMP: 08/14/20 04:25 08/20/20 04:07 ABG, PT/INR, D-dimer: PT/INR, D-dimer PT 17.6 Sec. (12.2-14.9) H 08/10/20 Unknown INR 1.38 (0.87-1.13) H 08/10/20 Unknown D-Dimer 4279.32 ng/mlDDU (0-234) H 08/10/20 08:56 Abnormal lab findings: Abnormal Labs 08/10/20 08/10/20 08/10/20 08:56 08:56 08:56 WBC 17.8 H RBC 5.31 H Hgb 16.0 H Hct 47.5 H Lymph % (Auto) [place] % (Auto) Lymph # (Auto) Seg Neutrophils % Seg Neuts % (Manual) 73.0 H Lymphocytes % (Manual) 4.0 L Monocytes % (Manual) 8.0 H Seg Neutrophils # Man 13.0 H Lymphocytes # (Manual) 0.7 L Monocytes # (Manual) 1.4 H PT INR D-Dimer 4279.32 H Sodium 135 L Chloride 94.4 L BUN 56 H Creatinine 3.2 H Glucose 153 H POC Glucose Lactic Acid Calcium Ferritin C-Reactive Protein 33.80 H Total Protein 5.9 L Albumin 3.3 L Lipase Salicylates Acetaminophen 08/10/20 08/10/20 08/10/20 08:56 08:56 08:56 WBC RBC Hgb Hct Lymph % (Auto) [place] % (Auto) Lymph # (Auto) Seg Neutrophils % Seg Neuts % (Manual) Lymphocytes % (Manual) Monocytes % (Manual) Seg Neutrophils # Man Lymphocytes # (Manual) Monocytes # (Manual) PT INR D-Dimer Sodium Chloride BUN Creatinine Glucose POC Glucose Lactic Acid 4.20 H* Calcium Ferritin 429.8 H C-Reactive Protein Total Protein Albumin Lipase Salicylates < 0.3 L Acetaminophen 08/10/20 08/10/20 08/10/20 08:56 08:56 22:55 WBC RBC Hgb Hct Lymph % (Auto) [place] % (Auto) Lymph # (Auto) Seg Neutrophils % Seg Neuts % (Manual) Lymphocytes % (Manual) Monocytes % (Manual) Seg Neutrophils # Man Lymphocytes # (Manual) Monocytes # (Manual) PT INR D-Dimer Sodium Chloride BUN Creatinine Glucose POC Glucose Lactic Acid 2.70 H* Calcium Ferritin C-Reactive Protein Total Protein Albumin Lipase 9 L Salicylates Acetaminophen 5.0 L 08/10/20 08/10/20 08/11/20 Unknown Unknown 08:17 WBC RBC Hgb Hct Lymph % (Auto) [place] % (Auto) Lymph # (Auto) Seg Neutrophils % Seg Neuts % (Manual) Lymphocytes % (Manual) Monocytes % (Manual) Seg Neutrophils # Man Lymphocytes # (Manual) Monocytes # (Manual) PT 17.6 H INR 1.38 H D-Dimer Sodium 135 L Chloride 97.7 L BUN 65 H Creatinine 1.6 H Glucose 126 H POC Glucose Lactic Acid 4.30 H* Calcium 7.9 L Ferritin C-Reactive Protein Total Protein Albumin Lipase Salicylates Acetaminophen 08/12/20 08/12/20 08/13/20 05:56 05:56 05:55 WBC RBC 3.59 L Hgb 11.5 L 10.8 L Hct 33.6 L D 31.9 L Lymph % (Auto) 9.0 L [place] % (Auto) 7.9 H Lymph # (Auto) 0.7 L 1.1 L Seg Neutrophils % 83.8 H 75.7 H Seg Neuts % (Manual) Lymphocytes % (Manual) Monocytes % (Manual) Seg Neutrophils # Man Lymphocytes # (Manual) Monocytes # (Manual) PT INR D-Dimer Sodium Chloride 107.3 H BUN 40 H Creatinine Glucose 108 H POC Glucose Lactic Acid Calcium 8.1 L Ferritin C-Reactive Protein Total Protein Albumin Lipase Salicylates Acetaminophen 08/13/20 08/14/20 08/14/20 05:55 04:25 04:25 WBC RBC Hgb 11.6 L Hct 34.2 L Lymph % (Auto) [place] % (Auto) Lymph # (Auto) Seg Neutrophils % Seg Neuts % (Manual) 84.0 H Lymphocytes % (Manual) 8.0 L Monocytes % (Manual) Seg Neutrophils # Man Lymphocytes # (Manual) 0.7 L Monocytes # (Manual) PT INR D-Dimer Sodium 136 L Chloride BUN 22 H Creatinine 0.6 L 0.6 L Glucose 103 H POC Glucose Lactic Acid Calcium 7.7 L 8.0 L Ferritin C-Reactive Protein Total Protein Albumin Lipase Salicylates Acetaminophen 08/16/20 08/17/20 08/18/20 04:13 07:12 00:06 WBC RBC Hgb Hct Lymph % (Auto) [place] % (Auto) Lymph # (Auto) Seg Neutrophils % Seg Neuts % (Manual) Lymphocytes % (Manual) Monocytes % (Manual) Seg Neutrophils # Man Lymphocytes # (Manual) Monocytes # (Manual) PT INR D-Dimer Sodium Chloride 110.0 H 107.5 H BUN Creatinine 0.6 L 0.6 L Glucose 138 H POC Glucose 113 H Lactic Acid Calcium 8.2 L 8.3 L Ferritin C-Reactive Protein Total Protein 5.1 L Albumin 2.7 L Lipase Salicylates Acetaminophen 08/18/20 08/18/20 08/18/20 04:28 11:14 17:39 WBC RBC Hgb Hct Lymph % (Auto) [place] % (Auto) Lymph # (Auto) Seg Neutrophils % Seg Neuts % (Manual) Lymphocytes % (Manual) Monocytes % (Manual) Seg Neutrophils # Man Lymphocytes # (Manual) Monocytes # (Manual) PT INR D-Dimer Sodium 136 L Chloride BUN Creatinine 0.5 L Glucose 101 H POC Glucose 119 H 112 H Lactic Acid Calcium 8.2 L Ferritin C-Reactive Protein Total Protein Albumin Lipase Salicylates Acetaminophen 08/19/20 08/19/20 08/20/20 04:17 11:53 00:31 WBC RBC Hgb Hct Lymph % (Auto) [place] % (Auto) Lymph # (Auto) Seg Neutrophils % Seg Neuts % (Manual) Lymphocytes % (Manual) Monocytes % (Manual) Seg Neutrophils # Man Lymphocytes # (Manual) Monocytes # (Manual) PT INR D-Dimer Sodium 135 L Chloride BUN Creatinine 0.6 L Glucose 102 H POC Glucose 108 H 143 H Lactic Acid Calcium Ferritin C-Reactive Protein Total Protein Albumin Lipase Salicylates Acetaminophen 08/20/20 04:07 WBC RBC Hgb Hct Lymph % (Auto) [place] % (Auto) Lymph # (Auto) Seg Neutrophils % Seg Neuts % (Manual) Lymphocytes % (Manual) Monocytes % (Manual) Seg Neutrophils # Man Lymphocytes # (Manual) Monocytes # (Manual) PT INR D-Dimer Sodium Chloride BUN Creatinine 0.6 L Glucose 125 H POC Glucose Lactic Acid Calcium 8.3 L Ferritin C-Reactive Protein Total Protein Albumin Lipase Salicylates Acetaminophen Allied health notes reviewed: nursing
--- NOTE | 2020-08-20 14:09 | Progress Note ---
Assessment and Plan Assessment and plan: 45 year old male presented to ED with a history of peptic ulcer disease presented to ER with two day history of worsening abdominal pain, and coffee ground emesis. CT scan shows free air in the upper part of the abdomen. Pt presented tachycardic and hypotensive. General surgery was consulted in ED. A/P -- Perforated viscus Surgical team consulted in ED, s/p sigmoidectomy with hartmans pouch for sigmoid perforation on 08/10/20. Patient currently n.p.o., continue IV fluid hydration Post op care per general surgeon -- Sepsis likely due to perforated viscus Continue empiric antibiotics, follow culture, IV fluid -- Acute kidney injury (BONY) with acute tubular necrosis (ATN) Likely due to sepsis Continue IV fluid resuscitation therapy, monitor urine output every shift, repeat BMP in a.m. to monitor serum creatinine as well as GFR. -- Metabolic acidosis IV fluid resuscitation therapy, serial lactic acid level, supportive care. --Postoperative ileus Continue n.p.o. status, continue IV fluid, serial abdominal examination, abdominal x-ray in the am --History of peptic ulcer disease, continue Protonix --DVT prophylaxis SCD to bilateral lower extremities while in bed, heparin Daily clinical Course: 08/11/20: POD#1 s/p sigmoidectomy with hartmans pouch for sigmoid perforation. Afebrile and stable. Pt has post op ileus will await return of bowel function and continue NGT decompression. 08/12/20: POD#2 Remains Afebrile and stable. Pt has post op ileus and continue NGT decompression. Keep NPO, cont iv fluid 08/13/20; POD#2 Remains Afebrile and stable. Pt has post op ileus and continue NGT decompression. Keep NPO, cont iv fluid. Transfer to surgical unit. 08/14/2020; postop day 3. Patient afebrile, stable. Patient has postop ileus and no bowel movement, continue with NG tube decompression. Continue with IV fluids. Surgery is following. 08/15/2020; patient did not have any bowel movement. Continue with NG tube decompression. Patient started on PPN. Surgery is following. 08/16/2020; NG tube was clamped. Patient is on PPN. Surgery is following. 08/17/2020; patient is on PPN, no fever or abdominal pain. Surgery is following. 08/18/2020; patient is on PPN. Patient is on IV antibiotics. Surgery is following the patient. 08/19/2020; continue with PPN and IV antibiotics. Surgery is following for further recommendations. 08/20/2020; continue with PPN. Surgery recommendations is to discharge in the next 24 to 48 hours. History Interval history: Patient was seen and evaluated this morning Patient denied any pain, patient did not have any bowel movement NG tube was taken out yesterday Hospitalist Physical - Physical exam Narrative exam: Not in cardiopulmonary distress. The patient appeared well nourished and normally developed. Vital signs as documented. Head exam is unremarkable. No scleral icterus . Neck is without jugular venous distension, thyromegaly, or carotid bruits. Lungs are clear to auscultation. Cardiac exam reveals regular rate and Rhythm. Abdominal exam reveals colostomy, clean midline surgical dressing. Colostomy, the tip of the stoma is dark. Extremities are nonedematous and both femoral and pedal pulses are normal. 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 No focal weakness. - Constitutional Vitals: Temp Pulse Resp BP Pulse Ox 98.2 F 70 16 95/56 96 08/20/20 11:28 08/20/20 11:28 08/20/20 11:28 08/20/20 11:28 08/20/20 11:28 HEART Score - HEART Score Troponin: Troponin T < 0.010 ng/mL (0.00-0.029) 08/10/20 08:56 Results - Labs CBC & Chem 7: 08/14/20 04:25 08/20/20 04:07 Labs: Laboratory Last Values WBC 8.6 K/mm3 (4.5-11.0) 08/14/20 04:25 RBC 3.87 M/mm3 (3.65-5.03) 08/14/20 04:25 Hgb 11.6 gm/dl (11.8-15.2) L 08/14/20 04:25 Hct 34.2 % (35.5-45.6) L 08/14/20 04:25 MCV 88 fl (84-94) 08/14/20 04:25 MCH 30 pg (28-32) 08/14/20 04:25 MCHC 34 % (32-34) 08/14/20 04:25 RDW 14.2 % (13.2-15.2) 08/14/20 04:25 Plt Count 212 K/mm3 (140-440) 08/14/20 04:25 Lymph % (Auto) 14.8 % (13.4-35.0) 08/13/20 05:55 [place] % (Auto) 7.9 % (0.0-7.3) H 08/13/20 05:55 Eos % (Auto) 1.5 % (0.0-4.3) 08/13/20 05:55 Baso % (Auto) 0.1 % (0.0-1.8) 08/13/20 05:55 Lymph # (Auto) 1.1 K/mm3 (1.2-5.4) L 08/13/20 05:55 [place] # (Auto) 0.6 K/mm3 (0.0-0.8) 08/13/20 05:55 Eos # (Auto) 0.1 K/mm3 (0.0-0.4) 08/13/20 05:55 Baso # (Auto) 0.0 K/mm3 (0.0-0.1) 08/13/20 05:55 Add Manual Diff Complete 08/14/20 04:25 Total Counted 100 08/14/20 04:25 Seg Neutrophils % 75.7 % (40.0-70.0) H 08/13/20 05:55 Seg Neuts % (Manual) 84.0 % (40.0-70.0) H 08/14/20 04:25 Band Neutrophils % 1.0 % 08/14/20 04:25 Lymphocytes % (Manual) 8.0 % (13.4-35.0) L 08/14/20 04:25 Monocytes % (Manual) 5.0 % (0.0-7.3) 08/14/20 04:25 Eosinophils % (Manual) 2.0 % (0.0-4.3) 08/14/20 04:25 Metamyelocytes % 1.0 % 08/10/20 08:56 Nucleated RBC % Not Reportable 08/14/20 04:25 Seg Neutrophils # 5.6 K/mm3 (1.8-7.7) 08/13/20 05:55 Seg Neutrophils # Man 7.2 K/mm3 (1.8-7.7) 08/14/20 04:25 Band Neutrophils # 0.1 K/mm3 08/14/20 04:25 Lymphocytes # (Manual) 0.7 K/mm3 (1.2-5.4) L 08/14/20 04:25 Abs React Lymphs (Man) 0.0 K/mm3 08/14/20 04:25 Monocytes # (Manual) 0.4 K/mm3 (0.0-0.8) 08/14/20 04:25 Eosinophils # (Manual) 0.2 K/mm3 (0.0-0.4) 08/14/20 04:25 Basophils # (Manual) 0.0 K/mm3 (0.0-0.1) 08/14/20 04:25 Metamyelocytes # 0.0 K/mm3 08/14/20 04:25 Myelocytes # 0.0 K/mm3 08/14/20 04:25 Promyelocytes # 0.0 K/mm3 08/14/20 04:25 Blast Cells # 0.0 K/mm3 08/14/20 04:25 WBC Morphology Not Reportable 08/14/20 04:25 Hypersegmented Neuts Not Reportable 08/14/20 04:25 Hyposegmented Neuts Not Reportable 08/14/20 04:25 Hypogranular Neuts Not Reportable 08/14/20 04:25 Smudge Cells Not Reportable 08/14/20 04:25 Toxic Granulation Not Reportable 08/14/20 04:25 Toxic Vacuolation Not Reportable 08/14/20 04:25 Dohle Bodies Not Reportable 08/14/20 04:25 Pelger-Huet Anomaly Not Reportable 08/14/20 04:25 Amrit Rods Not Reportable 08/14/20 04:25 Platelet Estimate Consistent w auto 08/14/20 04:25 Clumped Platelets Not Reportable 08/14/20 04:25 Plt Clumps, EDTA Not Reportable 08/14/20 04:25 Large Platelets Not Reportable 08/14/20 04:25 Giant Platelets Not Reportable 08/14/20 04:25 Platelet Satelliting Not Reportable 08/14/20 04:25 Plt Morphology Comment Not Reportable 08/14/20 04:25 RBC Morphology Normal 08/14/20 04:25 Dimorphic RBCs Not Reportable 08/14/20 04:25 Polychromasia Not Reportable 08/14/20 04:25 Hypochromasia Not Reportable 08/14/20 04:25 Poikilocytosis Not Reportable 08/14/20 04:25 Anisocytosis Not Reportable 08/14/20 04:25 Microcytosis Not Reportable 08/14/20 04:25 Macrocytosis Not Reportable 08/14/20 04:25 Spherocytes Not Reportable 08/14/20 04:25 Pappenheimer Bodies Not Reportable 08/14/20 04:25 Sickle Cells Not Reportable 08/14/20 04:25 Target Cells Not Reportable 08/14/20 04:25 Tear Drop Cells Not Reportable 08/14/20 04:25 Ovalocytes Not Reportable 08/14/20 04:25 Helmet Cells Not Reportable 08/14/20 04:25 Andersen-[place]mlenton Bodies Not Reportable 08/14/20 04:25 [place] Rings Not Reportable 08/14/20 04:25 Anita Cells Not Reportable 08/14/20 04:25 Bite Cells Not Reportable 08/14/20 04:25 Crenated Cell Not Reportable 08/14/20 04:25 Elliptocytes Not Reportable 08/14/20 04:25 Acanthocytes (Spur) Not Reportable 08/14/20 04:25 Rouleaux Not Reportable 08/14/20 04:25 Hemoglobin C Crystals Not Reportable 08/14/20 04:25 Schistocytes Not Reportable 08/14/20 04:25 Malaria parasites Not Reportable 08/14/20 04:25 Oscar Bodies Not Reportable 08/14/20 04:25 Hem Pathologist Commnt No 08/14/20 04:25 PT 17.6 Sec. (12.2-14.9) H 08/10/20 Unknown INR 1.38 (0.87-1.13) H 08/10/20 Unknown APTT 33.0 Sec. (24.2-36.6) 08/10/20 08:56 D-Dimer 4279.32 ng/mlDDU (0-234) H 08/10/20 08:56 Sodium 138 mmol/L (137-145) 08/20/20 04:07 Potassium 4.4 mmol/L (3.6-5.0) 08/20/20 04:07 Chloride 101.7 mmol/L (98-107) 08/20/20 04:07 Carbon Dioxide 27 mmol/L (22-30) 08/20/20 04:07 Anion Gap 14 mmol/L 08/20/20 04:07 BUN 16 mg/dL (9-20) 08/20/20 04:07 Creatinine 0.6 mg/dL (0.8-1.3) L 08/20/20 04:07 Estimated GFR > 60 ml/min 08/20/20 04:07 BUN/Creatinine Ratio 27 % 08/20/20 04:07 Glucose 125 mg/dL (75-100) H 08/20/20 04:07 POC Glucose 90 mg/dL (70-105) 08/20/20 06:41 Lactic Acid 1.70 mmol/L (0.7-2.0) 08/11/20 06:31 Calcium 8.3 mg/dL (8.4-10.2) L 08/20/20 04:07 Phosphorus 3.60 mg/dL (2.5-4.5) 08/20/20 04:07 Magnesium 1.90 mg/dL (1.7-2.3) 08/20/20 04:07 Ferritin 429.8 ng/mL (30.0-300.0) H 08/10/20 08:56 Total Bilirubin 0.30 mg/dL (0.1-1.2) 08/16/20 04:13 AST 32 units/L (5-40) 08/16/20 04:13 ALT 21 units/L (7-56) 08/16/20 04:13 Alkaline Phosphatase 38 units/L (35-129) 08/16/20 04:13 Lactate Dehydrogenase 160 units/L (91-180) 08/10/20 08:56 Troponin T < 0.010 ng/mL (0.00-0.029) 08/10/20 08:56 C-Reactive Protein 33.80 mg/dL (0.00-1.30) H 08/10/20 08:56 Total Protein 5.1 g/dL (6.3-8.2) L 08/16/20 04:13 Albumin 2.7 g/dL (3.9-5) L 08/16/20 04:13 Albumin/Globulin Ratio 1.1 % 08/16/20 04:13 Triglycerides 85 mg/dL (2-149) 08/16/20 04:13 Lipase 9 units/L (13-60) L 08/10/20 08:56 Procalcitonin > 200.00 ng/mL (<0.15) 08/10/20 08:56 TSH 3.870 mlU/mL (0.270-4.200) 08/10/20 08:56 Urine Color Yellow (Yellow) 08/10/20 17:39 Urine Turbidity Clear (Clear) 08/10/20 17:39 Urine pH 5.0 (5.0-7.0) 08/10/20 17:39 Ur Specific [place] 1.020 (1.003-1.030) 08/10/20 17:39 Urine Protein <15 mg/dl mg/dL (Negative) 08/10/20 17:39 Urine Glucose (UA) Neg mg/dL (Negative) 08/10/20 17:39 Urine Ketones Neg mg/dL (Negative) 08/10/20 17:39 Urine Blood Sm (Negative) 08/10/20 17:39 Urine Nitrite Neg (Negative) 08/10/20 17:39 Urine Bilirubin Neg (Negative) 08/10/20 17:39 Urine Urobilinogen < 2.0 mg/dL (<2.0) 08/10/20 17:39 Ur Leukocyte Esterase Neg (Negative) 08/10/20 17:39 Urine WBC (Auto) 2.0 /HPF (0.0-6.0) 08/10/20 17:39 Urine RBC (Auto) 2.0 /HPF (0.0-6.0) 08/10/20 17:39 U Epithel Cells (Auto) < 1.0 /HPF (0-13.0) 08/10/20 17:39 Urine Mucus Few /HPF 08/10/20 17:39 Salicylates < 0.3 mg/dL (2.8-20.0) L 08/10/20 08:56 Acetaminophen 5.0 ug/mL (10.0-30.0) L 08/10/20 08:56 Plasma/Serum Alcohol < 0.01 % (0-0.07) 08/10/20 08:56 Coronavirus (PCR) Negative (Negative) 08/10/20 08:19 Blood Type O POSITIVE 08/10/20 08:56 Antibody Screen Negative 08/10/20 08:56 Herrmann/IV: Voiding Method Urinal Active Medications - Current Medications Current Medications: Generic Name Dose Route Start Last Admin Trade Name Freq PRN Reason Stop Dose Admin Albuterol 2.5 mg 08/10/20 11:01 Albuterol 2.5 Mg/3 Ml Nebu IH Q3HRT PRN Shortness Of Breath Bisacodyl 10 mg 08/15/20 18:00 08/19/20 11:38 Bisacodyl 10 Mg Rect Supp [place] 10 mg QDAY DARYA Administration Heparin Sodium (Porcine) 5,000 unit 08/11/20 18:00 08/20/20 06:00 Heparin 5,000 Unit/1 Ml Vial SUB-Q 5,000 unit Q12H DARYA Administration Hydromorphone HCl 0.5 mg 08/10/20 16:20 08/17/20 11:58 Hydromorphone 1 Mg/1 Ml Inj IV 0.5 mg Q3H PRN Administration Pain , Severe (7-10) Amino Acids/Electrolytes/Dextrose 2,400 mls @ 100 mls/hr 08/19/20 20:00 08/19/20 21:02 Tpn Adult IV 08/20/20 19:59 100 mls/hr DAILY@1999 DARYA Administration Protocol Amino Acids/Electrolytes/Dextrose 2,400 mls @ 100 mls/hr 08/20/20 20:00 Tpn Adult IV 08/21/20 19:59 DAILY@1999 [facility] Protocol Oxycodone/Acetaminophen 2 tab 08/20/20 11:49 Oxycodone /Acetaminophen 5-325mg Tab PO Q6H PRN Pain, Moderate (4-6) Pantoprazole Sodium 40 mg 08/12/20 10:00 08/19/20 11:38 Pantoprazole 40 Mg Inj IV 40 mg QDAY DARYA Administration Sodium Chloride 10 ml 08/10/20 22:00 08/19/20 21:03 Sodium Chloride 0.9% 10 Ml Flush Syringe IV 10 ml BID DARYA Administration Sodium Chloride 10 ml 08/10/20 11:01 Sodium Chloride 0.9% 10 Ml Flush Syringe IV PRN PRN LINE FLUSH Nutrition/Malnutrition Assess - Dietary Evaluation Nutrition/Malnutrition Findings: Nutrition Notes Start: 08/15/20 12:14 Freq: Status: Active Protocol: Document 08/20/20 09:19 ANTHONY (Rec: 08/20/20 09:23 ANTHONY [id number]) Nutrition Notes Initial or Follow up Reassessment Other Pertinent Diagnosis Perforated viscus s/p sigmoidectomy, post-op ileus Current Diet PPN at 100ml/hr + Cl liq Labs/Tests Reviewed Pertinent Medications Reviewed Height 5 ft 7 in Weight 70.307 kg [place] Body Weight (kg) 67.27 BMI 24.3 Weight Status Appropriate Subjective/Other Information Day 4 PPN. Small amount of liquid stool in colostomy bag. Pt with peripheral iv access only. Percent of energy/protein needs met: 50% energy 100% pro Burn Absent Trauma Absent #1 Nutrition Diagnosis Malnutrition Diagnosis Progress(for reassessment Continues documentation) Is patient on ventilator? No Is Patient Ambulatory and/or Out of Bed Yes REE-([facility]-ambulatory/OOB) [ 2004.210 [id number]] Calculation Used for Recommendations [facility] Additional Notes Protein: (1.2-1.5g/kg) 84-105g Fluid: 1 ml/kcal or per MD Nutrition Intervention Nutrition Support: Continue PPN at 100ml/hr: MVI. Osmolality: 885. Kcal 931 Protein (gm) 84 Carbohydrates (gm) 175 Fat (gm) 0 Fluid (mL) 2,400 Fiber (gm) 0 Goal #1 PPN to meet nutrient needs as best possible Goal #2 PO tolerance Follow-Up By: 08/21/20 Additional Comments Labs in am: BMP, Mg, Phos
[2020-08-20] MEDS ORDERED: TOTAL PARENTERAL NUTRITION 2,400 ML IV SCH (20:00)
[2020-08-21] MEDS: HEPARIN 5,000 UNIT/1 ML VIAL SUB-Q SCH ×2 (05:42→19:54)
--- NOTE | 2020-08-21 10:47 | Progress Note ---
Assessment and Plan 45 year old male presented to ED with a history of peptic ulcer disease presented to ER with two day history of worsening abdominal pain, and coffee ground emesis. CT scan shows free air in the upper part of the abdomen. Pt presented tachycardic and hypotensive. General surgery was consulted. Patient has perforated viscous. Patient undergone sigmoidectomy. Patient also developed peritonitis and sepsis. Patient is on Levaquin and metronidazole. Patient alert, awake. denies chest pain, shortness of breath or cough. Patient resting on room air. O2 saturation 97%. Patient has no history of smoking, alcohol or drug abuse. 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 No known drug allergies. Patient sleeping. On room air. No acute respiratory distress. O2 saturation 97%. No acute respiratory distress. Patient afebrile. Blood pressure 111/58. No Leukocytosis Chest xray 08/10/20 reported no acute process. CT scan of chest done 08/10/20 reported HEART: No significant abnormality. THORACIC AORTA AND ARTERIES: No significant abnormality. MEDIASTINUM and JANE: No mass or lymphadenopathy. The esophagus is fluid-filled and moderately distended. The trachea and main bronchi are patent and normal in caliber. LUNGS: There is mild dependent bilateral atelectasis without other significant abnormalities. PLEURA: No significant pleural effusion. No pneumothorax Patient on TPN. Patient started on liquid diet. Patient is on S/C Heparin, Protonix. Continue incentive spirometry. - Patient Problems (1) Acute kidney injury (BONY) with acute tubular necrosis (ATN) Current Visit: Yes Status: Acute Plan to address problem: Management as per nephrology. (2) Perforated abdominal viscus Current Visit: Yes Status: Acute Plan to address problem: Patient S/P sigmoidectomy. (3) Peritonitis Current Visit: Yes Status: Acute Plan to address problem: Patient was on Levaquin and Metronidazole. (4) Severe sepsis Current Visit: Yes Status: Acute Plan to address problem: Patient was on Levaquin and metronidazole. Subjective Date of service: 08/21/20 Principal diagnosis: Severe sepsis; Perforated Abd. viscus; Peritonitis; Lactic acidosis Interval history: 45 year old male presented to ED with a history of peptic ulcer disease presented to ER with two day history of worsening abdominal pain, and coffee ground emesis. CT scan shows free air in the upper part of the abdomen. Pt presented tachycardic and hypotensive. General surgery was consulted. Patient has perforated viscous. Patient undergone sigmoidectomy. Patient also developed peritonitis and sepsis. Patient is on Levaquin and metronidazole. Patient alert, awake. denies chest pain, shortness of breath or cough. Patient resting on room air. O2 saturation 97%. Patient has no history of smoking, alcohol or drug abuse. 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 No known drug allergies. Patient sleeping. On room air. No acute respiratory distress. O2 saturation 97%. No acute respiratory distress. Patient afebrile. Blood pressure 111/58. No Leukocytosis Chest xray 08/10/20 reported no acute process. CT scan of chest done 08/10/20 reported HEART: No significant abnormality. THORACIC AORTA AND ARTERIES: No significant abnormality. MEDIASTINUM and JANE: No mass or lymphadenopathy. The esophagus is fluid-filled and moderately distended. The trachea and main bronchi are patent and normal in caliber. LUNGS: There is mild dependent bilateral atelectasis without other significant abnormalities. PLEURA: No significant pleural effusion. No pneumothorax Patient on TPN. Patient started on liquid diet. Patient is on S/C Heparin, Protonix. Continue incentive spirometry. Objective Vital Signs - 12hr 08/21/20 08/21/20 08/21/20 01:07 01:24 04:32 Temperature 98.6 F 98.6 F 98.3 F Pulse Rate 66 66 Respiratory 19 18 18 Rate Blood Pressure 103/57 Blood Pressure 103/57 [Left] O2 Sat by Pulse 96 96 Oximetry 08/21/20 08/21/20 05:06 08:01 Temperature 98 F 97.6 F Pulse Rate 63 63 Respiratory 18 16 Rate Blood Pressure 102/55 Blood Pressure 105/59 [Left] O2 Sat by Pulse 97 96 Oximetry Constitutional: no acute distress, asleep Eyes: non-icteric ENT: oropharynx moist, other (NGT) Neck: supple, no lymphadenopathy, no JVD Effort: normal Ascultation: Bilateral: diminished breath sounds (bases) Percussion: Bilateral: not dull Cardiovascular: regular rate and rhythm, other (S1,S2) Gastrointestinal: normoactive bowel sounds, soft, non-tender, non-distended, other (colostomy in place, midline dressing) Integumentary: normal, other (post-op changes) Extremities: no cyanosis, no edema, pink and warm, pulses normal Neurologic: non-focal exam, pupils equal and round, CN II-XII normal, motor strength normal and Psychiatric: mood appropriate, affect normal CBC and BMP: 08/14/20 04:25 08/21/20 10:41 ABG, PT/INR, D-dimer: PT/INR, D-dimer PT 17.6 Sec. (12.2-14.9) H 08/10/20 Unknown INR 1.38 (0.87-1.13) H 08/10/20 Unknown D-Dimer 4279.32 ng/mlDDU (0-234) H 08/10/20 08:56 Abnormal lab findings: Abnormal Labs 08/10/20 08/10/20 08/10/20 08:56 08:56 08:56 WBC 17.8 H RBC 5.31 H Hgb 16.0 H Hct 47.5 H Lymph % (Auto) [place] % (Auto) Lymph # (Auto) Seg Neutrophils % Seg Neuts % (Manual) 73.0 H Lymphocytes % (Manual) 4.0 L Monocytes % (Manual) 8.0 H Seg Neutrophils # Man 13.0 H Lymphocytes # (Manual) 0.7 L Monocytes # (Manual) 1.4 H PT INR D-Dimer 4279.32 H Sodium 135 L Chloride 94.4 L BUN 56 H Creatinine 3.2 H Glucose 153 H POC Glucose Lactic Acid Calcium Ferritin C-Reactive Protein 33.80 H Total Protein 5.9 L Albumin 3.3 L Lipase Salicylates Acetaminophen 08/10/20 08/10/20 08/10/20 08:56 08:56 08:56 WBC RBC Hgb Hct Lymph % (Auto) [place] % (Auto) Lymph # (Auto) Seg Neutrophils % Seg Neuts % (Manual) Lymphocytes % (Manual) Monocytes % (Manual) Seg Neutrophils # Man Lymphocytes # (Manual) Monocytes # (Manual) PT INR D-Dimer Sodium Chloride BUN Creatinine Glucose POC Glucose Lactic Acid 4.20 H* Calcium Ferritin 429.8 H C-Reactive Protein Total Protein Albumin Lipase Salicylates < 0.3 L Acetaminophen 08/10/20 08/10/20 08/10/20 08:56 08:56 22:55 WBC RBC Hgb Hct Lymph % (Auto) [place] % (Auto) Lymph # (Auto) Seg Neutrophils % Seg Neuts % (Manual) Lymphocytes % (Manual) Monocytes % (Manual) Seg Neutrophils # Man Lymphocytes # (Manual) Monocytes # (Manual) PT INR D-Dimer Sodium Chloride BUN Creatinine Glucose POC Glucose Lactic Acid 2.70 H* Calcium Ferritin C-Reactive Protein Total Protein Albumin Lipase 9 L Salicylates Acetaminophen 5.0 L 08/10/20 08/10/20 08/11/20 Unknown Unknown 08:17 WBC RBC Hgb Hct Lymph % (Auto) [place] % (Auto) Lymph # (Auto) Seg Neutrophils % Seg Neuts % (Manual) Lymphocytes % (Manual) Monocytes % (Manual) Seg Neutrophils # Man Lymphocytes # (Manual) Monocytes # (Manual) PT 17.6 H INR 1.38 H D-Dimer Sodium 135 L Chloride 97.7 L BUN 65 H Creatinine 1.6 H Glucose 126 H POC Glucose Lactic Acid 4.30 H* Calcium 7.9 L Ferritin C-Reactive Protein Total Protein Albumin Lipase Salicylates Acetaminophen 08/12/20 08/12/20 08/13/20 05:56 05:56 05:55 WBC RBC 3.59 L Hgb 11.5 L 10.8 L Hct 33.6 L D 31.9 L Lymph % (Auto) 9.0 L [place] % (Auto) 7.9 H Lymph # (Auto) 0.7 L 1.1 L Seg Neutrophils % 83.8 H 75.7 H Seg Neuts % (Manual) Lymphocytes % (Manual) Monocytes % (Manual) Seg Neutrophils # Man Lymphocytes # (Manual) Monocytes # (Manual) PT INR D-Dimer Sodium Chloride 107.3 H BUN 40 H Creatinine Glucose 108 H POC Glucose Lactic Acid Calcium 8.1 L Ferritin C-Reactive Protein Total Protein Albumin Lipase Salicylates Acetaminophen 08/13/20 08/14/20 08/14/20 05:55 04:25 04:25 WBC RBC Hgb 11.6 L Hct 34.2 L Lymph % (Auto) [place] % (Auto) Lymph # (Auto) Seg Neutrophils % Seg Neuts % (Manual) 84.0 H Lymphocytes % (Manual) 8.0 L Monocytes % (Manual) Seg Neutrophils # Man Lymphocytes # (Manual) 0.7 L Monocytes # (Manual) PT INR D-Dimer Sodium 136 L Chloride BUN 22 H Creatinine 0.6 L 0.6 L Glucose 103 H POC Glucose Lactic Acid Calcium 7.7 L 8.0 L Ferritin C-Reactive Protein Total Protein Albumin Lipase Salicylates Acetaminophen 08/16/20 08/17/20 08/18/20 04:13 07:12 00:06 WBC RBC Hgb Hct Lymph % (Auto) [place] % (Auto) Lymph # (Auto) Seg Neutrophils % Seg Neuts % (Manual) Lymphocytes % (Manual) Monocytes % (Manual) Seg Neutrophils # Man Lymphocytes # (Manual) Monocytes # (Manual) PT INR D-Dimer Sodium Chloride 110.0 H 107.5 H BUN Creatinine 0.6 L 0.6 L Glucose 138 H POC Glucose 113 H Lactic Acid Calcium 8.2 L 8.3 L Ferritin C-Reactive Protein Total Protein 5.1 L Albumin 2.7 L Lipase Salicylates Acetaminophen 08/18/20 08/18/20 08/18/20 04:28 11:14 17:39 WBC RBC Hgb Hct Lymph % (Auto) [place] % (Auto) Lymph # (Auto) Seg Neutrophils % Seg Neuts % (Manual) Lymphocytes % (Manual) Monocytes % (Manual) Seg Neutrophils # Man Lymphocytes # (Manual) Monocytes # (Manual) PT INR D-Dimer Sodium 136 L Chloride BUN Creatinine 0.5 L Glucose 101 H POC Glucose 119 H 112 H Lactic Acid Calcium 8.2 L Ferritin C-Reactive Protein Total Protein Albumin Lipase Salicylates Acetaminophen 08/19/20 08/19/20 08/20/20 04:17 11:53 00:31 WBC RBC Hgb Hct Lymph % (Auto) [place] % (Auto) Lymph # (Auto) Seg Neutrophils % Seg Neuts % (Manual) Lymphocytes % (Manual) Monocytes % (Manual) Seg Neutrophils # Man Lymphocytes # (Manual) Monocytes # (Manual) PT INR D-Dimer Sodium 135 L Chloride BUN Creatinine 0.6 L Glucose 102 H POC Glucose 108 H 143 H Lactic Acid Calcium Ferritin C-Reactive Protein Total Protein Albumin Lipase Salicylates Acetaminophen 08/20/20 04:07 WBC RBC Hgb Hct Lymph % (Auto) [place] % (Auto) Lymph # (Auto) Seg Neutrophils % Seg Neuts % (Manual) Lymphocytes % (Manual) Monocytes % (Manual) Seg Neutrophils # Man Lymphocytes # (Manual) Monocytes # (Manual) PT INR D-Dimer Sodium Chloride BUN Creatinine 0.6 L Glucose 125 H POC Glucose Lactic Acid Calcium 8.3 L Ferritin C-Reactive Protein Total Protein Albumin Lipase Salicylates Acetaminophen Allied health notes reviewed: nursing
[2020-08-21] MEDS: PANTOPRAZOLE 40 MG INJ IV SCH (11:12)
[2020-08-21 11:42] LABS: Blood Urea Nitrogen 13 mg/dL (9-20); Calcium 8.8 mg/dL (8.4-10.2); Hemolysis Index 16
[2020-08-21 11:48] LABS: BUN/Creatinine Ratio 22
--- NOTE | 2020-08-21 12:56 | Progress Note ---
Assessment and Plan POD#11 s/p sigmoidectomy with hartmans pouch for sigmoid perforation. Afebrile and stable. Pt showing much better ostomy function. will d/c PPN and advance to soft diet. Pt and family needs ostomy teaching. Will reach out to ostomy nurse. Hoopefully can be discharged in the next 24-48 hours. From surgical perspective pt can probable be discharged tomorrow. continue ambulation Subjective Date of service: 08/21/20 Narrative: No acute events overnight. Patient has had copious semisolid and liquid stool out of ostomy. Patient has no complaints is been tolerating full liquid diet. Pain continues to be controlled. Objective Vital Signs - 12hr 08/21/20 08/21/20 08/21/20 01:07 01:24 04:32 Temperature 98.6 F 98.6 F 98.3 F Pulse Rate 66 66 Respiratory 19 18 18 Rate Blood Pressure 103/57 Blood Pressure 103/57 [Left] O2 Sat by Pulse 96 96 Oximetry 08/21/20 08/21/20 08/21/20 05:06 08:01 11:21 Temperature 98 F 97.6 F 98.4 F Pulse Rate 63 63 59 L Respiratory 18 16 16 Rate Blood Pressure 102/55 97/59 Blood Pressure 105/59 [Left] O2 Sat by Pulse 97 96 97 Oximetry - General physical appearance well developed, well nourished, no distress, no pain - Respiratory normal expansion, normal respiratory effort - Abdomen soft, not tender, other (staple line /c/d/i, ostomy continues to be dusky and swollen in apperance but there is air and stool in bag. Drain is serous) - Labs 08/14/20 04:25 08/21/20 10:41 Diabetes panel 08/21/20 Range/Units 10:41 Sodium 138 (137-145) mmol/L Potassium 4.3 (3.6-5.0) mmol/L Chloride 102.5 (98-107) mmol/L Carbon Dioxide 28 (22-30) mmol/L BUN 13 (9-20) mg/dL Creatinine 0.6 L (0.8-1.3) mg/dL Glucose 90 (75-100) mg/dL Calcium 8.8 (8.4-10.2) mg/dL Calcium panel 08/21/20 Range/Units 10:41 Calcium 8.8 (8.4-10.2) mg/dL Phosphorus 3.30 (2.5-4.5) mg/dL Pituitary panel 08/21/20 Range/Units 10:41 Sodium 138 (137-145) mmol/L Potassium 4.3 (3.6-5.0) mmol/L Chloride 102.5 (98-107) mmol/L Carbon Dioxide 28 (22-30) mmol/L BUN 13 (9-20) mg/dL Creatinine 0.6 L (0.8-1.3) mg/dL Glucose 90 (75-100) mg/dL Calcium 8.8 (8.4-10.2) mg/dL Adrenal panel 08/21/20 Range/Units 10:41 Sodium 138 (137-145) mmol/L Potassium 4.3 (3.6-5.0) mmol/L Chloride 102.5 (98-107) mmol/L Carbon Dioxide 28 (22-30) mmol/L BUN 13 (9-20) mg/dL Creatinine 0.6 L (0.8-1.3) mg/dL Glucose 90 (75-100) mg/dL Calcium 8.8 (8.4-10.2) mg/dL
--- NOTE | 2020-08-21 14:47 | Progress Note ---
Assessment and Plan Assessment and plan: 45 year old male presented to ED with a history of peptic ulcer disease presented to ER with two day history of worsening abdominal pain, and coffee ground emesis. CT scan shows free air in the upper part of the abdomen. Pt presented tachycardic and hypotensive. General surgery was consulted in ED. A/P -- Perforated viscus Surgical team consulted in ED, s/p sigmoidectomy with hartmans pouch for sigmoid perforation on 08/10/20. Patient currently n.p.o., continue IV fluid hydration Post op care per general surgeon -- Sepsis likely due to perforated viscus Continue empiric antibiotics, follow culture, IV fluid -- Acute kidney injury (BONY) with acute tubular necrosis (ATN) Likely due to sepsis Continue IV fluid resuscitation therapy, monitor urine output every shift, repeat BMP in a.m. to monitor serum creatinine as well as GFR. -- Metabolic acidosis IV fluid resuscitation therapy, serial lactic acid level, supportive care. --Postoperative ileus Continue n.p.o. status, continue IV fluid, serial abdominal examination, abdominal x-ray in the am --History of peptic ulcer disease, continue Protonix --DVT prophylaxis SCD to bilateral lower extremities while in bed, heparin Daily clinical Course: 08/11/20: POD#1 s/p sigmoidectomy with hartmans pouch for sigmoid perforation. Afebrile and stable. Pt has post op ileus will await return of bowel function and continue NGT decompression. 08/12/20: POD#2 Remains Afebrile and stable. Pt has post op ileus and continue NGT decompression. Keep NPO, cont iv fluid 08/13/20; POD#2 Remains Afebrile and stable. Pt has post op ileus and continue NGT decompression. Keep NPO, cont iv fluid. Transfer to surgical unit. 08/14/2020; postop day 3. Patient afebrile, stable. Patient has postop ileus and no bowel movement, continue with NG tube decompression. Continue with IV fluids. Surgery is following. 08/15/2020; patient did not have any bowel movement. Continue with NG tube decompression. Patient started on PPN. Surgery is following. 08/16/2020; NG tube was clamped. Patient is on PPN. Surgery is following. 08/17/2020; patient is on PPN, no fever or abdominal pain. Surgery is following. 08/18/2020; patient is on PPN. Patient is on IV antibiotics. Surgery is following the patient. 08/19/2020; continue with PPN and IV antibiotics. Surgery is following for further recommendations. 08/20/2020; continue with PPN. Surgery recommendations is to discharge in the next 24 to 48 hours. 08/21: POD#11 s/p sigmoidectomy with hartmans pouch for sigmoid perforation. Afebrile and stable. Pt and family needs ostomy teaching. start weaning PPN. History Interval history: Patient seen and examined, resting comfortable, no new complaints Hospitalist Physical - Physical exam Narrative exam: Not in cardiopulmonary distress. The patient appeared well nourished and normally developed. Vital signs as documented. Head exam is unremarkable. No scleral icterus . Neck is without jugular venous distension, thyromegaly, or carotid bruits. Lungs are clear to auscultation. Cardiac exam reveals regular rate and Rhythm. Abdominal exam reveals colostomy, clean midline surgical dressing. Colostomy, the tip of the stoma is dark. Extremities are nonedematous and both femoral and pedal pulses are normal. CREDIT COLLECTIONS ANALYST: Alert and oriented 3. No focal weakness. - Constitutional Vitals: Temp Pulse Resp BP Pulse Ox 98.4 F 59 L 16 97/59 97 08/21/20 11:21 08/21/20 11:21 08/21/20 11:21 08/21/20 11:21 08/21/20 11:21 HEART Score - HEART Score Troponin: Troponin T < 0.010 ng/mL (0.00-0.029) 08/10/20 08:56 Results - Labs CBC & Chem 7: 08/14/20 04:25 08/21/20 10:41 Labs: Laboratory Last Values WBC 8.6 K/mm3 (4.5-11.0) 08/14/20 04:25 RBC 3.87 M/mm3 (3.65-5.03) 08/14/20 04:25 Hgb 11.6 gm/dl (11.8-15.2) L 08/14/20 04:25 Hct 34.2 % (35.5-45.6) L 08/14/20 04:25 MCV 88 fl (84-94) 08/14/20 04:25 MCH 30 pg (28-32) 08/14/20 04:25 MCHC 34 % (32-34) 08/14/20 04:25 RDW 14.2 % (13.2-15.2) 08/14/20 04:25 Plt Count 212 K/mm3 (140-440) 08/14/20 04:25 Lymph % (Auto) 14.8 % (13.4-35.0) 08/13/20 05:55 [place] % (Auto) 7.9 % (0.0-7.3) H 08/13/20 05:55 Eos % (Auto) 1.5 % (0.0-4.3) 08/13/20 05:55 Baso % (Auto) 0.1 % (0.0-1.8) 08/13/20 05:55 Lymph # (Auto) 1.1 K/mm3 (1.2-5.4) L 08/13/20 05:55 [place] # (Auto) 0.6 K/mm3 (0.0-0.8) 08/13/20 05:55 Eos # (Auto) 0.1 K/mm3 (0.0-0.4) 08/13/20 05:55 Baso # (Auto) 0.0 K/mm3 (0.0-0.1) 08/13/20 05:55 Add Manual Diff Complete 08/14/20 04:25 Total Counted 100 08/14/20 04:25 Seg Neutrophils % 75.7 % (40.0-70.0) H 08/13/20 05:55 Seg Neuts % (Manual) 84.0 % (40.0-70.0) H 08/14/20 04:25 Band Neutrophils % 1.0 % 08/14/20 04:25 Lymphocytes % (Manual) 8.0 % (13.4-35.0) L 08/14/20 04:25 Monocytes % (Manual) 5.0 % (0.0-7.3) 08/14/20 04:25 Eosinophils % (Manual) 2.0 % (0.0-4.3) 08/14/20 04:25 Metamyelocytes % 1.0 % 08/10/20 08:56 Nucleated RBC % Not Reportable 08/14/20 04:25 Seg Neutrophils # 5.6 K/mm3 (1.8-7.7) 08/13/20 05:55 Seg Neutrophils # Man 7.2 K/mm3 (1.8-7.7) 08/14/20 04:25 Band Neutrophils # 0.1 K/mm3 08/14/20 04:25 Lymphocytes # (Manual) 0.7 K/mm3 (1.2-5.4) L 08/14/20 04:25 Abs React Lymphs (Man) 0.0 K/mm3 08/14/20 04:25 Monocytes # (Manual) 0.4 K/mm3 (0.0-0.8) 08/14/20 04:25 Eosinophils # (Manual) 0.2 K/mm3 (0.0-0.4) 08/14/20 04:25 Basophils # (Manual) 0.0 K/mm3 (0.0-0.1) 08/14/20 04:25 Metamyelocytes # 0.0 K/mm3 08/14/20 04:25 Myelocytes # 0.0 K/mm3 08/14/20 04:25 Promyelocytes # 0.0 K/mm3 08/14/20 04:25 Blast Cells # 0.0 K/mm3 08/14/20 04:25 WBC Morphology Not Reportable 08/14/20 04:25 Hypersegmented Neuts Not Reportable 08/14/20 04:25 Hyposegmented Neuts Not Reportable 08/14/20 04:25 Hypogranular Neuts Not Reportable 08/14/20 04:25 Smudge Cells Not Reportable 08/14/20 04:25 Toxic Granulation Not Reportable 08/14/20 04:25 Toxic Vacuolation Not Reportable 08/14/20 04:25 Dohle Bodies Not Reportable 08/14/20 04:25 Pelger-Huet Anomaly Not Reportable 08/14/20 04:25 Amrit Rods Not Reportable 08/14/20 04:25 Platelet Estimate Consistent w auto 08/14/20 04:25 Clumped Platelets Not Reportable 08/14/20 04:25 Plt Clumps, EDTA Not Reportable 08/14/20 04:25 Large Platelets Not Reportable 08/14/20 04:25 Giant Platelets Not Reportable 08/14/20 04:25 Platelet Satelliting Not Reportable 08/14/20 04:25 Plt Morphology Comment Not Reportable 08/14/20 04:25 RBC Morphology Normal 08/14/20 04:25 Dimorphic RBCs Not Reportable 08/14/20 04:25 Polychromasia Not Reportable 08/14/20 04:25 Hypochromasia Not Reportable 08/14/20 04:25 Poikilocytosis Not Reportable 08/14/20 04:25 Anisocytosis Not Reportable 08/14/20 04:25 Microcytosis Not Reportable 08/14/20 04:25 Macrocytosis Not Reportable 08/14/20 04:25 Spherocytes Not Reportable 08/14/20 04:25 Pappenheimer Bodies Not Reportable 08/14/20 04:25 Sickle Cells Not Reportable 08/14/20 04:25 Target Cells Not Reportable 08/14/20 04:25 Tear Drop Cells Not Reportable 08/14/20 04:25 Ovalocytes Not Reportable 08/14/20 04:25 Helmet Cells Not Reportable 08/14/20 04:25 [place] Bodies Not Reportable 08/14/20 04:25 [place] Rings Not Reportable 08/14/20 04:25 Anita Cells Not Reportable 08/14/20 04:25 Bite Cells Not Reportable 08/14/20 04:25 Crenated Cell Not Reportable 08/14/20 04:25 Elliptocytes Not Reportable 08/14/20 04:25 Acanthocytes (Spur) Not Reportable 08/14/20 04:25 Rouleaux Not Reportable 08/14/20 04:25 Hemoglobin C Crystals Not Reportable 08/14/20 04:25 Schistocytes Not Reportable 08/14/20 04:25 Malaria parasites Not Reportable 08/14/20 04:25 Oscar Bodies Not Reportable 08/14/20 04:25 Hem Pathologist Commnt No 08/14/20 04:25 PT 17.6 Sec. (12.2-14.9) H 08/10/20 Unknown INR 1.38 (0.87-1.13) H 08/10/20 Unknown APTT 33.0 Sec. (24.2-36.6) 08/10/20 08:56 D-Dimer 4279.32 ng/mlDDU (0-234) H 08/10/20 08:56 Sodium 138 mmol/L (137-145) 08/21/20 10:41 Potassium 4.3 mmol/L (3.6-5.0) 08/21/20 10:41 Chloride 102.5 mmol/L (98-107) 08/21/20 10:41 Carbon Dioxide 28 mmol/L (22-30) 08/21/20 10:41 Anion Gap 12 mmol/L 08/21/20 10:41 BUN 13 mg/dL (9-20) 08/21/20 10:41 Creatinine 0.6 mg/dL (0.8-1.3) L 08/21/20 10:41 Estimated GFR > 60 ml/min 08/21/20 10:41 BUN/Creatinine Ratio 22 % 08/21/20 10:41 Glucose 90 mg/dL (75-100) 08/21/20 10:41 POC Glucose 93 mg/dL (70-105) 08/21/20 06:11 Lactic Acid 1.70 mmol/L (0.7-2.0) 08/11/20 06:31 Calcium 8.8 mg/dL (8.4-10.2) 08/21/20 10:41 Phosphorus 3.30 mg/dL (2.5-4.5) 08/21/20 10:41 Magnesium 2.00 mg/dL (1.7-2.3) 08/21/20 10:41 Ferritin 429.8 ng/mL (30.0-300.0) H 08/10/20 08:56 Total Bilirubin 0.30 mg/dL (0.1-1.2) 08/16/20 04:13 AST 32 units/L (5-40) 08/16/20 04:13 ALT 21 units/L (7-56) 08/16/20 04:13 Alkaline Phosphatase 38 units/L (35-129) 08/16/20 04:13 Lactate Dehydrogenase 160 units/L (91-180) 08/10/20 08:56 Troponin T < 0.010 ng/mL (0.00-0.029) 08/10/20 08:56 C-Reactive Protein 33.80 mg/dL (0.00-1.30) H 08/10/20 08:56 Total Protein 5.1 g/dL (6.3-8.2) L 08/16/20 04:13 Albumin 2.7 g/dL (3.9-5) L 08/16/20 04:13 Albumin/Globulin Ratio 1.1 % 08/16/20 04:13 Triglycerides 85 mg/dL (2-149) 08/16/20 04:13 Lipase 9 units/L (13-60) L 08/10/20 08:56 Procalcitonin > 200.00 ng/mL (<0.15) 08/10/20 08:56 TSH 3.870 mlU/mL (0.270-4.200) 08/10/20 08:56 Urine Color Yellow (Yellow) 08/10/20 17:39 Urine Turbidity Clear (Clear) 08/10/20 17:39 Urine pH 5.0 (5.0-7.0) 08/10/20 17:39 Ur Specific [place] 1.020 (1.003-1.030) 08/10/20 17:39 Urine Protein <15 mg/dl mg/dL (Negative) 08/10/20 17:39 Urine Glucose (UA) Neg mg/dL (Negative) 08/10/20 17:39 Urine Ketones Neg mg/dL (Negative) 08/10/20 17:39 Urine Blood Sm (Negative) 08/10/20 17:39 Urine Nitrite Neg (Negative) 08/10/20 17:39 Urine Bilirubin Neg (Negative) 08/10/20 17:39 Urine Urobilinogen < 2.0 mg/dL (<2.0) 08/10/20 17:39 Ur Leukocyte Esterase Neg (Negative) 08/10/20 17:39 Urine WBC (Auto) 2.0 /HPF (0.0-6.0) 08/10/20 17:39 Urine RBC (Auto) 2.0 /HPF (0.0-6.0) 08/10/20 17:39 U Epithel Cells (Auto) < 1.0 /HPF (0-13.0) 08/10/20 17:39 Urine Mucus Few /HPF 08/10/20 17:39 Salicylates < 0.3 mg/dL (2.8-20.0) L 08/10/20 08:56 Acetaminophen 5.0 ug/mL (10.0-30.0) L 08/10/20 08:56 Plasma/Serum Alcohol < 0.01 % (0-0.07) 08/10/20 08:56 Coronavirus (PCR) Negative (Negative) 08/10/20 08:19 Blood Type O POSITIVE 08/10/20 08:56 Antibody Screen Negative 08/10/20 08:56 Herrmann/IV: Voiding Method Urinal Active Medications - Current Medications Current Medications: Generic Name Dose Route Start Last Admin Trade Name Freq PRN Reason Stop Dose Admin Albuterol 2.5 mg 08/10/20 11:01 Albuterol 2.5 Mg/3 Ml Nebu IH Q3HRT PRN Shortness Of Breath Bisacodyl 10 mg 08/15/20 18:00 08/20/20 11:45 Bisacodyl 10 Mg Rect Supp [place] 10 mg QDAY DARYA Administration Heparin Sodium (Porcine) 5,000 unit 08/11/20 18:00 08/21/20 05:42 Heparin 5,000 Unit/1 Ml Vial SUB-Q 5,000 unit Q12H DARYA Administration Hydromorphone HCl 0.5 mg 08/10/20 16:20 08/17/20 11:58 Hydromorphone 1 Mg/1 Ml Inj IV 0.5 mg Q3H PRN Administration Pain , Severe (7-10) Amino Acids/Electrolytes/Dextrose 2,400 mls @ 100 mls/hr 08/20/20 20:00 08/20/20 21:34 Tpn Adult IV 08/21/20 19:59 100 mls/hr DAILY@1999 DARYA Administration Protocol Amino Acids/Electrolytes/Dextrose 2,400 mls @ 100 mls/hr 08/21/20 20:00 Tpn Adult IV 08/22/20 19:59 DAILY@1999 [facility] Protocol Oxycodone/Acetaminophen 2 tab 08/20/20 11:49 Oxycodone /Acetaminophen 5-325mg Tab PO Q6H PRN Pain, Moderate (4-6) Pantoprazole Sodium 40 mg 08/22/20 07:30 Pantoprazole 40 Mg Tab PO QDAC DARYA Sodium Chloride 10 ml 08/10/20 22:00 08/20/20 21:35 Sodium Chloride 0.9% 10 Ml Flush Syringe IV 10 ml BID DARYA Administration Sodium Chloride 10 ml 08/10/20 11:01 Sodium Chloride 0.9% 10 Ml Flush Syringe IV PRN PRN LINE FLUSH Nutrition/Malnutrition Assess - Dietary Evaluation Nutrition/Malnutrition Findings: Nutrition Notes Start: 08/15/20 12:14 Freq: Status: Active Protocol: Document 08/21/20 11:22 (Rec: 08/21/20 11:25 [email or web address]) Nutrition Notes Initial or Follow up Reassessment Current Diagnosis Acute Kidney Injury,Sepsis Other Pertinent Diagnosis Perforated viscus s/p sigmoidectomy, post-op ileus Current Diet PPN at 100ml/hr + Cl liq Labs/Tests No new labs Pertinent Medications Reviewed Height 5 ft 7 in Weight 70.307 kg [place] Body Weight (kg) 67.27 BMI 24.3 Weight Status Appropriate Subjective/Other Information Day 5 PPN. Pt diet advanced at lunch to GI soft and will be able to d/c PPN tomorrow if pt tolerates. Pt drank 100% of clear liquid diet this morning . Percent of energy/protein needs met: 50% energy 100% pro Burn Absent Trauma Absent GI Symptoms Other Current % PO Negligible Minimum of two criteria Yes Energy Intake (non-severe) <75% Estimated Energy Requirement >7 days Interpretation of Weight Loss (severe) >2% in 1 week #1 Nutrition Diagnosis Malnutrition Diagnosis Progress(for reassessment Continues documentation) Is patient on ventilator? No Is Patient Ambulatory and/or Out of Bed Yes REE-([facility]-ambulatory/OOB) [ 2004.210 [id number]] Calculation Used for Recommendations [facility] Additional Notes Protein: (1.2-1.5g/kg) 84-105g Fluid: 1 ml/kcal or per MD Nutrition Intervention Nutrition Support: Continue PPN at 100ml/hr: HEIDI BRAR. Osmolality: 885. Kcal 931 Protein (gm) 84 Carbohydrates (gm) 175 Fat (gm) 0 Fluid (mL) 2,400 Fiber (gm) 0 Goal #1 PPN to meet nutrient needs as best possible Goal #2 PO tolerance Follow-Up By: 08/22/20 Additional Comments FU for intakes and PO tolerance; need for PPN
[2020-08-21] MEDS ORDERED: TOTAL PARENTERAL NUTRITION 2,400 ML IV SCH (20:00)
[2020-08-22] MEDS: HEPARIN 5,000 UNIT/1 ML VIAL SUB-Q SCH (05:01)
[2020-08-22] MEDS ORDERED: PANTOPRAZOLE 40 MG TAB PO SCH (07:30)
--- NOTE | 2020-08-22 11:06 | Discharge Summary ---
Providers - Providers Date of Admission: 08/10/20 11:01 Attending physician: SALVADOR VARGAS MD 08/10/20 08:30 Consult to Physician [CONS] Urgent Comment: Consulting Provider: BARNEY HARRIS Physician Instructions: Reason For Exam: ugib 08/10/20 10:34 Consult to Physician [CONS] Urgent Comment: Consulting Provider: PRANEETH MOISE Physician Instructions: Reason For Exam: bowel perf 08/10/20 10:35 Consult to Physician [CONS] Urgent Comment: Consulting Provider: ISIAH SCOTT Physician Instructions: Reason For Exam: bowel, perf 08/14/20 20:35 Consult to Dietitian/Nutrition [CONS] Routine Physician Instructions: please start PPN Reason For Exam: prolonged post op ileus Reason for Consult: Write/Manage TPN/PPN 08/16/20 08:37 Physical Therapy Evaluation and Treat [CONS] Routine Comment: Reason For Exam: eval for ambulation, s/p ex lap Primary care physician: [employer] Hospitalization Reason for admission: PERFORATED VISCOUS Condition: Stable Hospital course: 45 year old male presented to ED with a history of peptic ulcer disease presented to ER with two day history of worsening abdominal pain, and coffee ground emesis. CT scan shows free air in the upper part of the abdomen. Pt presented tachycardic and hypotensive. General surgery was consulted in ED. A/P -- Perforated viscus Surgical team consulted in ED, s/p sigmoidectomy with hartmans pouch for sigmoid perforation on 08/10/20. Patient currently n.p.o., continue IV fluid hydration Post op care per general surgeon -- Sepsis likely due to perforated viscus Continue empiric antibiotics, follow culture, IV fluid -- Acute kidney injury (BONY) with acute tubular necrosis (ATN) Likely due to sepsis Continue IV fluid resuscitation therapy, monitor urine output every shift, repeat BMP in a.m. to monitor serum creatinine as well as GFR. -- Metabolic acidosis IV fluid resuscitation therapy, serial lactic acid level, supportive care. --Postoperative ileus Continue n.p.o. status, continue IV fluid, serial abdominal examination, abdominal x-ray in the am --History of peptic ulcer disease, continue Protonix --DVT prophylaxis SCD to bilateral lower extremities while in bed, heparin Daily clinical Course: 08/11/20: POD#1 s/p sigmoidectomy with hartmans pouch for sigmoid perforation. Afebrile and stable. Pt has post op ileus will await return of bowel function and continue NGT decompression. 08/12/20: POD#2 Remains Afebrile and stable. Pt has post op ileus and continue NGT decompression. Keep NPO, cont iv fluid 08/13/20; POD#2 Remains Afebrile and stable. Pt has post op ileus and continue NGT decompression. Keep NPO, cont iv fluid. Transfer to surgical unit. 08/14/2020; postop day 3. Patient afebrile, stable. Patient has postop ileus and no bowel movement, continue with NG tube decompression. Continue with IV fluids. Surgery is following. 08/15/2020; patient did not have any bowel movement. Continue with NG tube decompression. Patient started on PPN. Surgery is following. 08/16/2020; NG tube was clamped. Patient is on PPN. Surgery is following. 08/17/2020; patient is on PPN, no fever or abdominal pain. Surgery is following. 08/18/2020; patient is on PPN. Patient is on IV antibiotics. Surgery is following the patient. 08/19/2020; continue with PPN and IV antibiotics. Surgery is following for further recommendations. 08/20/2020; continue with PPN. Surgery recommendations is to discharge in the next 24 to 48 hours. 22: POD#11 s/p sigmoidectomy with hartmans pouch for sigmoid perforation. Afebrile and stable. Pt and family needs ostomy teaching. Start weaning PPN. 08/22: POD#12. Clinically stable, tolerating Diet. Now off PPN, wound management education provided. Family to [facility] ostomy bag Disposition: DC-01 TO HOME OR SELFCARE Final Discharge Diagnosis (Prints w/discharge instructions): PERFORATED VISCOUS Time spent for discharge: 35 mins Core Measure Documentation - Palliative Care Palliative Care/ Comfort Measures: Not Applicable - Core Measures Any of the following diagnoses?: none Exam - Physical Exam Narrative exam: Not in cardiopulmonary distress. The patient appeared well nourished and normally developed. Vital signs as documented. Head exam is unremarkable. No scleral icterus . Neck is without jugular venous distension, thyromegaly, or carotid bruits. Lungs are clear to auscultation. Cardiac exam reveals regular rate and Rhythm. Abdominal exam reveals colostomy, clean midline surgical dressing. Colostomy, the tip of the stoma is dark. Extremities are nonedematous and both femoral and pedal pulses are normal. PATIENT FINANCIAL REP: Alert and oriented 3. No focal weakness. - Constitutional Vitals: Temp Pulse Resp BP Pulse Ox 97.9 F 69 18 107/60 97 08/22/20 08:29 08/22/20 08:29 08/22/20 08:29 08/22/20 08:29 08/22/20 08:29 Plan Activity: advance as tolerated, fall precautions Diet: per dietitian instruction Wound: per your surgeon's advice, per wound nurse instructions Special Instructions: record daily weights, record daily BP diary, home health RN Follow up with: PRIMARY CARE, [Primary Care Provider] - 3-5 Days PRANEETH MOISE MD [Staff Physician] - 7 Days Prescriptions: Pantoprazole [Protonix TAB] 40 mg PO QDAC #30 tablet
[2020-08-22 12:29] VITALS: BP 94/55
--- NOTE | 2020-08-22 15:47 | Progress Note ---
Assessment and Plan POD#12 s/p sigmoidectomy with hartmans pouch for sigmoid perforation. Afebrile and stable. Pt showing much better ostomy function. Pt and family taught ostomy care. Expressed understanding. OK to discharge pt today. Pt can advance diet as tolerated. Pt instructed to follow up with me in the office next week for check up and staple removal. Subjective Date of service: 08/22/20 Narrative: No acute events overnight. Pt is tolerating soft diet well and denies pain, na usea or vomiting. continues to have stool and air in colostomy bag. Objective Vital Signs - 12hr 08/22/20 08/22/20 08:29 11:43 Temperature 97.9 F 98.3 F Pulse Rate 69 67 Respiratory 18 18 Rate Blood Pressure 107/60 94/55 O2 Sat by Pulse 97 98 Oximetry - General physical appearance well developed, well nourished, no distress, no pain - Respiratory normal expansion, normal respiratory effort - Abdomen soft, not rebound, not guarding, other (ostomy continues to show vascular congestion and edema, but has good stool output. GAEL drain with small amount of serous drainage. It was removed.) - Labs 08/14/20 04:25 08/21/20 10:41
== END 2020-08-22 14:45 | disposition home or self-care (01) | DRG 853 ==
LOC: ED 07:52 → CC1 11:01 → IMCU 08-12 13:51 → 3B-SURG 08-13 21:00
PROVIDERS: ADMIT Internal Medicine; ATTEND Internal Medicine
PROC: 0D1N0Z4 Bypass Sigmoid Colon to Cutaneous, Open Approach (ICD-10-PCS; principal; 2020-08-10)
PROC: 0DBN0ZZ Excision of Sigmoid Colon, Open Approach (ICD-10-PCS; 2020-08-10)
PROC: 0DJW4ZZ Inspection of Peritoneum, Percutaneous Endoscopic Approach (ICD-10-PCS; 2020-08-10)
PROC: 0D9670Z Drainage of Stomach with Drainage Device, Via Natural or Artificial Opening (ICD-10-PCS; 2020-08-12)
DX: A41.9 Sepsis, unspecified organism (principal); N17.0 Acute kidney failure with tubular necrosis; K65.9 Peritonitis, unspecified; K63.1 Perforation of intestine (nontraumatic); E87.2 Acidosis; E87.1 Hypo-osmolality and hyponatremia; K56.7 Ileus, unspecified; R19.8 Other specified symptoms and signs involving the digestive system and abdomen; Z20.822 Contact with and (suspected) exposure to COVID-19; K21.9 Gastro-esophageal reflux disease without esophagitis; R65.20 Severe sepsis without septic shock; Y83.8 Other surgical procedures as the cause of abnormal reaction of the patient, or of later complication, without mention of misadventure at the time of the procedure; Y92.098 Other place in other non-institutional residence as the place of occurrence of the external cause; Z90.49 Acquired absence of other specified parts of digestive tract
CPT/HCPCS: 36415; 71045; 71250; 74022; 74176; 80048; 80053; 80320; 81001; 82140; 82728; 82962; 83615; 83690; 83735; 84100; 84145; 84443; 84478; 84484; 85007; 85025; 85027; 85379; 85610; 85730; 86140; 86850; 86900; 86901; 87040; 87086; 88307; 93005; G0378; C9113; G0480; J0330; J1100; J1170; J1644; J1885; J1956; J2270; J2370; J2405; J2543; J2704; J2710; J7030; J7042; J7120; U0003

== ENCOUNTER 2021-04-08 10:40 | Inpatient (IN) | payer SELFPAY ==
[2021-04-08] MEDS ORDERED: SODIUM CHLORIDE 0.9% 1000 ML 1,000 ML IV ONE (11:47)
[2021-04-08] MEDS ORDERED: ONDANSETRON 4 MG/2 ML INJ IV ONE (11:47)
[2021-04-08] MEDS ORDERED: MORPHINE 4 MG/1 ML INJ IV ONE ×2 (11:47→14:08)
[2021-04-08 12:15] LABS: Basophils # (Auto) 0.1 K/mm3 (0.0-0.1); Basophils % (Auto) 0.5 % (0.0-1.8); Hematocrit 44.5 % (35.5-45.6); Hemoglobin 14.8 gm/dl (11.8-15.2); Lymphocytes # (Auto) 0.8 K/mm3 (1.2-5.4); Lymphocytes % (Auto) 5.6 % (13.4-35.0); Mean Corpuscular HGB Conc 33 % (32-34); Mean Corpuscular Volume 89 fl (84-94); Monocytes # (Auto) 0.7 K/mm3 (0.0-0.8); Monocytes % (Auto) 4.8 % (0.0-7.3); Platelet Count 275 K/mm3 (140-440); Red Blood Count 5.02 M/mm3 (3.65-5.03); Red Cell Distribution Width 13.5 % (13.2-15.2)
[2021-04-08 12:50] LABS: BUN/Creatinine Ratio TNR; Bilirubin,Direct TNR mg/dL (0-0.2); Blood Urea Nitrogen TNR mg/dL (9-20); Calcium TNR mg/dL (8.4-10.2)
[2021-04-08 12:51] LABS: Alanine Aminotransferase TNR units/L (7-56); Albumin TNR g/dL (3.9-5); Hemolysis Index TNR
[2021-04-08 17:02] LABS: Blood Urea Nitrogen 14 mg/dL (9-20); Calcium 8.6 mg/dL (8.4-10.2); Hemolysis Index 12
[2021-04-08 17:05] LABS: BUN/Creatinine Ratio 20
[2021-04-08] MEDS ORDERED: PIPERACILLIN/TAZOBACTAM 3.375 3.375 GM/50 ML BAG IV ONE (20:22)
[2021-04-08] MEDS ORDERED: metroNIDAZOLE/NS 500 MG/100 ML 500 MG/100 ML BAG IV NR (21:00)
[2021-04-08] MEDS ORDERED: ACETAMINOPHEN 325 MG TAB PO PRN (21:52)
[2021-04-08] MEDS ORDERED: ONDANSETRON 4 MG/2 ML INJ IV PRN (21:52)
[2021-04-08] MEDS ORDERED: ALBUTEROL 2.5 MG/3 ML NEBU IH PRN (21:52)
[2021-04-08] MEDS ORDERED: D5W/0.45% NACL 1,000 ML IV SCH (22:00)
[2021-04-08] MEDS ORDERED: PANTOPRAZOLE 40 MG INJ IV ONE (22:54)
[2021-04-09] MEDS: IPRATROPIUM/ALBUTEROL SULFATE 3 ML AMPUL.NEB IH SCH ×4 (02:30→22:35)
[2021-04-09 04:56] LABS: Basophils % (Auto) 0.3 % (0.0-1.8); Eosinophils % (Auto) 0.3 % (0.0-4.3); Hematocrit 46.5 % (35.5-45.6); Hemoglobin 15.4 gm/dl (11.8-15.2); Lymphocytes # (Auto) 1.6 K/mm3 (1.2-5.4); Lymphocytes % (Auto) 13.2 % (13.4-35.0); Mean Corpuscular HGB Conc 33 % (32-34); Mean Corpuscular Volume 89 fl (84-94); Monocytes % (Auto) 7.8 % (0.0-7.3); Platelet Count 266 K/mm3 (140-440); Red Blood Count 5.24 M/mm3 (3.65-5.03); Red Cell Distribution Width 12.9 % (13.2-15.2)
[2021-04-09 05:09] LABS: Blood Urea Nitrogen 18 mg/dL (9-20); Calcium 8.6 mg/dL (8.4-10.2); Hemolysis Index 2
[2021-04-09 05:13] LABS: BUN/Creatinine Ratio 30
[2021-04-09] MEDS: MORPHINE 2 MG/1 ML INJ IV PRN (06:25)
[2021-04-09] MEDS: metroNIDAZOLE/NS 500 MG/100 ML 500 MG/100 ML BAG IV SCH ×3 (06:26→21:34)
[2021-04-09] MEDS: PIPERACIL/TAZOBACTA 4.5/NS 100 4.5 GM/100 ML VIAL IV SCH ×3 (07:34→21:50)
[2021-04-09] MEDS ORDERED: LACTATED RINGERS 500 ML IV ONE (07:46)
[2021-04-09] MEDS ORDERED: POTASSIUM CHLORIDE ER 20 MEQ TAB PO NR (08:00)
[2021-04-09] MEDS: HYDROmorphone 1 MG/1 ML INJ IV PRN (21:50)
[2021-04-09] MEDS ORDERED: HYDROmorphone 1 MG/1 ML INJ IV PRN ×2 (22:59)
[2021-04-09] MEDS ORDERED: ONDANSETRON 4 MG/2 ML INJ IV PRN ×2 (22:59→23:07)
[2021-04-09] MEDS ORDERED: LIDOCAINE MPF (2%) 20 MG/1 ML VIAL 5 ML ONE (23:07)
[2021-04-09] MEDS ORDERED: propofoL 200 MG/20 ML VIAL IV ONE ×2 (23:07→23:53)
[2021-04-09] MEDS ORDERED: fentaNYL 100 MCG/2 ML INJ ONE (23:07)
[2021-04-09] MEDS ORDERED: BUPIVACAINE/PF (0.5%) 5 MG/1 ML 30 ML VIAL INFILTRATI ONE ×2 (23:25→23:51)
[2021-04-09] MEDS ORDERED: LIDOCAINE 2%/EPINEPHRINE 1:200,000 VIAL (20 ML) INFILTRATI ONE (23:26)
[2021-04-09] MEDS ORDERED: LIDOCAINE (1%) 10 MG/1 ML VIAL 20 ML MDV ONE (23:26)
[2021-04-09] MEDS ORDERED: LIDOCAINE 2%/EPINEPHRINE 1:100,000 VIAL (20 ML) INFILTRATI ONE (23:51)
[2021-04-10] MEDS ORDERED: ONDANSETRON 4 MG/2 ML INJ ONE
[2021-04-10] MEDS: IPRATROPIUM/ALBUTEROL SULFATE 3 ML AMPUL.NEB IH SCH ×3 (01:30→14:17)
[2021-04-10] MEDS: POTASSIUM CHLORIDE 20 MEQ in LACTATED RINGERS 1,000 ML IV SCH ×3 (03:41→21:25)
[2021-04-10] MEDS: HYDROmorphone 1 MG/1 ML INJ IV PRN (03:42)
[2021-04-10] MEDS: PIPERACIL/TAZOBACTA 4.5/NS 100 4.5 GM/100 ML VIAL IV SCH ×3 (06:00→21:20)
[2021-04-10 10:40] LABS: Basophils # (Auto) 0.1 K/mm3 (0.0-0.1); Basophils % (Auto) 0.7 % (0.0-1.8); Eosinophils # (Auto) 0.1 K/mm3 (0.0-0.4); Eosinophils % (Auto) 0.7 % (0.0-4.3); Hemoglobin 13.3 gm/dl (11.8-15.2); Lymphocytes # (Auto) 1.5 K/mm3 (1.2-5.4); Lymphocytes % (Auto) 17.6 % (13.4-35.0); Mean Corpuscular HGB Conc 31 % (32-34); Mean Corpuscular Volume 89 fl (84-94); Monocytes # (Auto) 0.9 K/mm3 (0.0-0.8); Monocytes % (Auto) 10.9 % (0.0-7.3); Platelet Count 267 K/mm3 (140-440); Red Blood Count 4.82 M/mm3 (3.65-5.03); Red Cell Distribution Width 12.7 % (13.2-15.2)
[2021-04-10] MEDS ORDERED: POLYETHYLENE GLYCOL/ELECT SOLN 4000 ML PO NR (11:00)
[2021-04-10 11:18] LABS: Blood Urea Nitrogen 14 mg/dL (9-20); Calcium 7.9 mg/dL (8.4-10.2); Hemolysis Index 6
[2021-04-10 11:41] LABS: BUN/Creatinine Ratio 20
[2021-04-11] MEDS: PIPERACIL/TAZOBACTA 4.5/NS 100 4.5 GM/100 ML VIAL IV SCH ×3 (05:16→21:57)
[2021-04-11] MEDS ORDERED: WATER FOR IRRIG STERILE 250 ML BOTTLE IR ONE (06:50)
[2021-04-11] MEDS ORDERED: WATER FOR IRRIG STERILE 1,000 ML BOTTLE ONE (06:51)
[2021-04-11] MEDS ORDERED: SODIUM CHLORIDE 0.9% 1000 ML 1,000 ML ONE (07:28)
[2021-04-11] MEDS ORDERED: propofoL 200 MG/20 ML VIAL IV ONE ×2 (07:31→07:49)
[2021-04-11] MEDS ORDERED: LIDOCAINE MPF (2%) 20 MG/1 ML VIAL 5 ML ONE (07:31)
[2021-04-11] MEDS ORDERED: POTASSIUM CHLORIDE ER 20 MEQ TAB PO ONE ×2 (10:10→14:00)
[2021-04-11] MEDS: HYDROmorphone 1 MG/1 ML INJ IV PRN (13:40)
[2021-04-12] MEDS: POTASSIUM CHLORIDE 20 MEQ in LACTATED RINGERS 1,000 ML IV SCH ×2 (02:08→21:12)
[2021-04-12] MEDS: PIPERACIL/TAZOBACTA 4.5/NS 100 4.5 GM/100 ML VIAL IV SCH ×2 (05:37→21:04)
[2021-04-12 08:17] LABS: BUN/Creatinine Ratio 12; Blood Urea Nitrogen 7 mg/dL (9-20); Calcium 8.2 mg/dL (8.4-10.2); Hemolysis Index 17
[2021-04-12] MEDS ORDERED: LIDOCAINE MPF (2%) 20 MG/1 ML VIAL 5 ML ONE (14:11)
[2021-04-12] MEDS ORDERED: ROCURONIUM 50 MG/5 ML INJ IV ONE ×3 (14:11→17:22)
[2021-04-12] MEDS ORDERED: propofoL 200 MG/20 ML VIAL IV ONE (14:12)
[2021-04-12] MEDS ORDERED: fentaNYL 100 MCG/2 ML INJ ONE (14:12)
[2021-04-12] MEDS ORDERED: ePHEDrine SULFATE 50 MG/1 ML INJ ONE (14:46)
[2021-04-12] MEDS ORDERED: BUPIVACAINE/PF (0.25%) 2.5 MG/ML 30 ML VIAL INFILTRATI ONE ×3 (14:54→19:19)
[2021-04-12] MEDS ORDERED: LIDOCAINE (1%) 10 MG/1 ML VIAL 20 ML MDV ONE (14:54)
[2021-04-12] MEDS ORDERED: ONDANSETRON 4 MG/2 ML INJ ONE (15:48)
[2021-04-12] MEDS ORDERED: dexAMETHasone 20 MG/5 ML VIAL ONE (15:48)
[2021-04-12] MEDS ORDERED: KETOROLAC 30 MG/1 ML INJ ONE (15:48)
[2021-04-12] MEDS ORDERED: PHENYLEPHRINE/NS 1,000 MCG/10 ML SYRINGE (OR USE) IV ONE (16:03)
[2021-04-12] MEDS ORDERED: GLYCOPYRROLATE 0.4 MG/2 ML INJ ONE (16:13)
[2021-04-12] MEDS ORDERED: NEOSTIGMINE 10MG/10 ML INJ MDV ONE (16:13)
[2021-04-12] MEDS ORDERED: LACTATED RINGERS 1,000 ML ONE (16:24)
[2021-04-12] MEDS ORDERED: HYDROmorphone 1 MG/1 ML INJ ONE (17:56)
[2021-04-12] MEDS ORDERED: LIDOCAINE (1%) 10 MG/1 ML VIAL 20 ML MDV INFILTRATI ONE (19:20)
[2021-04-12] MEDS ORDERED: SODIUM CHLORIDE 0.9% IRRIG SOLN 2000 ML IR ONE (19:21)
[2021-04-12] MEDS: HYDROmorphone 1 MG/1 ML INJ IV PRN (20:53)
[2021-04-12] MEDS: MORPHINE 2 MG/1 ML INJ IV PRN (20:56)
[2021-04-12] MEDS: metroNIDAZOLE/NS 500 MG/100 ML 500 MG/100 ML BAG IV ONE ×2 (22:47→22:51)
[2021-04-13] MEDS: PIPERACIL/TAZOBACTA 4.5/NS 100 4.5 GM/100 ML VIAL IV SCH ×3 (05:33→13:16)
[2021-04-13] MEDS: MORPHINE 2 MG/1 ML INJ IV PRN (05:42)
[2021-04-13] MEDS: POTASSIUM CHLORIDE 20 MEQ in LACTATED RINGERS 1,000 ML IV SCH (06:41)
[2021-04-13] MEDS ORDERED: HYDROcodone/ACETAMINOPHEN 7.5-325MG TAB PO PRN (10:46)
[2021-04-13] MEDS: metroNIDAZOLE/NS 500 MG/100 ML 500 MG/100 ML BAG IV SCH ×3 (13:08→21:04)
[2021-04-14 00:52] LABS: Basophils % (Auto) 0.3 % (0.0-1.8); Eosinophils # (Auto) 0.2 K/mm3 (0.0-0.4); Eosinophils % (Auto) 1.2 % (0.0-4.3); Hematocrit 41.1 % (35.5-45.6); Hemoglobin 13.4 gm/dl (11.8-15.2); Lymphocytes # (Auto) 2.3 K/mm3 (1.2-5.4); Lymphocytes % (Auto) 16.5 % (13.4-35.0); Mean Corpuscular HGB Conc 33 % (32-34); Mean Corpuscular Volume 89 fl (84-94); Monocytes % (Auto) 7.4 % (0.0-7.3); Platelet Count 263 K/mm3 (140-440); Red Blood Count 4.64 M/mm3 (3.65-5.03); Red Cell Distribution Width 12.5 % (13.2-15.2)
[2021-04-14 00:57] LABS: Blood Urea Nitrogen 13 mg/dL (9-20); Calcium 8.1 mg/dL (8.4-10.2); Hemolysis Index 7
[2021-04-14 01:00] LABS: BUN/Creatinine Ratio 19
[2021-04-15 04:57] LABS: Basophils # (Auto) 0.1 K/mm3 (0.0-0.1); Basophils % (Auto) 0.5 % (0.0-1.8); Eosinophils # (Auto) 0.3 K/mm3 (0.0-0.4); Eosinophils % (Auto) 2.5 % (0.0-4.3); Hematocrit 42.1 % (35.5-45.6); Hemoglobin 13.9 gm/dl (11.8-15.2); Lymphocytes % (Auto) 15.7 % (13.4-35.0); Mean Corpuscular HGB Conc 33 % (32-34); Mean Corpuscular Volume 90 fl (84-94); Monocytes # (Auto) 1.3 K/mm3 (0.0-0.8); Monocytes % (Auto) 9.8 % (0.0-7.3); Platelet Count 256 K/mm3 (140-440); Red Cell Distribution Width 12.7 % (13.2-15.2)
[2021-04-15] MEDS: MORPHINE 2 MG/1 ML INJ IV PRN (21:16)
[2021-04-16] MEDS: MORPHINE 2 MG/1 ML INJ IV PRN (07:39)
[2021-04-16 11:18] LABS: Basophils # (Auto) 0.1 K/mm3 (0.0-0.1); Basophils % (Auto) 0.4 % (0.0-1.8); Eosinophils # (Auto) 0.3 K/mm3 (0.0-0.4); Hematocrit 44.7 % (35.5-45.6); Hemoglobin 14.4 gm/dl (11.8-15.2); Lymphocytes # (Auto) 1.3 K/mm3 (1.2-5.4); Lymphocytes % (Auto) 9.3 % (13.4-35.0); Mean Corpuscular HGB Conc 32 % (32-34); Mean Corpuscular Volume 89 fl (84-94); Monocytes % (Auto) 7.4 % (0.0-7.3); Platelet Count 330 K/mm3 (140-440); Red Cell Distribution Width 12.8 % (13.2-15.2)
[2021-04-16 14:07] VITALS: BP 116/77
== END 2021-04-16 17:00 | disposition home or self-care (01) | DRG 330 ==
LOC: ED 10:40 → 3A 21:53
PROVIDERS: ADMIT Hospitalist; ATTEND Student in an Organized Health Care Education/Training Program
PROC: 0DBN0ZZ Excision of Sigmoid Colon, Open Approach (ICD-10-PCS; 2021-04-09)
PROC: 0DJD8ZZ Inspection of Lower Intestinal Tract, Via Natural or Artificial Opening Endoscopic (ICD-10-PCS; principal; 2021-04-11)
PROC: 0DNU4ZZ Release Omentum, Percutaneous Endoscopic Approach (ICD-10-PCS; 2021-04-12)
PROC: 0DQN4ZZ Repair Sigmoid Colon, Percutaneous Endoscopic Approach (ICD-10-PCS; 2021-04-12)
DX: K91.30 Postprocedural intestinal obstruction, unspecified as to partial versus complete (principal); K35.80 Unspecified acute appendicitis; D72.829 Elevated white blood cell count, unspecified; E87.6 Hypokalemia
CPT/HCPCS: 36415; 74177; 80048; 80076; 83735; 84132; 85025; 87040; 87493; 88307; 94640; 94760; G0378; J1815; J3490; J7120; J7517; Q0162; C9113; J0690; J1100; J1170; J1885; J2270; J2370; J2405; J2543; J2704; J2710; J3010; J3480; J7030; Q9967